=== PATIENT | female | born 1935 | race Caucasian/White ===

== ENCOUNTER → 2017-01-31 | Outpatient (CLI) | payer MEDICARE, OTHER ==
--- NOTE | 2017-02-03 06:52 | CT ---
EXAMINATION TYPE: CT ChestAbdPelvis wo con DATE OF EXAM: 01/31/2017 COMPARISON: CTA chest August 25, 2015. CT abdomen and pelvis December 26, 2014. HISTORY: weight loss and generalized abdominal pain. History of uterine cancer. CT DLP: 814 mGycm. Automated Exposure Control for Dose Reduction was Utilized. TECHNIQUE: CT scan of the thorax, abdomen and pelvis is performed with oral but without IV contrast. FINDINGS: LUNGS: There is mild underlying emphysematous change. There is patchy bibasilar linear scarring and/o r atelectasis in the lung bases near diaphragm. There is additional linear scarring or atelectasis in the lingula near fissure. No suspicious parenchymal nodule or mass is present bilaterally. No pleura l effusion or pneumothorax is seen bilaterally. Tracheobronchial tree is patent. MEDIASTINUM: Evaluation for adenopathy is suboptimal due to lack of IV contrast. There is no definiti ve greater than 1 cm thoracic lymph nodes seen. No cardiomegaly is identified. There is tiny peric ardial effusion diminished in size from prior. There is coronary artery calcification which is noted marker for coronary artery disease. There is fairly moderate calcified plaque in descending aorta. OTHER: No additional significant abnormality is seen. LIVER/GB: Tiny dependent gallstone is redemonstrated. PANCREAS: No significant abnormality is seen. SPLEEN: No significant abnormality is seen. ADRENALS: There is stable fullness to left adrenal gland consistent with benign breast hyperplasia. KIDNEYS: No significant abnormality is seen. BOWEL: Oral contrast reaches level of terminal ileum. Contrast filled small bowel loops are slightly more prominent in the lower abdomen and pelvis. There is no suspicious small or large bowel dilatatio n. GENITAL ORGANS: Uterus is surgically absent or markedly atrophic in appearance. Scattered pelvic phle boliths are present. LYMPH NODES: No greater than 1cm abdominal or pelvic lymph nodes are appreciated. OSSEOUS STRUCTURES: Spine is straightened on sagittal images. There is scoliotic curvature in the lum bar spine on coronal images. Osseous structures are demineralized. Persistent mild height loss L2 lev el is noted. OTHER: Moderate to severe calcified plaque of the abdominal aorta is redemonstrated. IMPRESSION: No suspicious new mass or adenopathy is seen. No significant new or acute finding is seen to account for symptoms of pain.
== END | disposition home or self-care (01) ==
LOC: RADCTMAIN 16:04
PROVIDERS: ATTEND Internal Medicine Hematology & Oncology
DX: R07.9 Chest pain, unspecified (principal); R10.84 Generalized abdominal pain; R63.4 Abnormal weight loss; C54.9 Malignant neoplasm of corpus uteri, unspecified
CPT/HCPCS: 71250; 74176

== ENCOUNTER 2017-03-12 07:50 | Day surgery (SDC) | payer MEDICARE, OTHER ==
[2017-03-06 15:00] VITALS: BMI 17.3
[~2017-03-12 07:50] MED LIST: LACTATED RINGERS 1,000 ML IV SCH; LIDOCAINE 1% 20 ML VIAL (10MG/ML) FOR IV START INTRADERMA PRN
[2017-03-12] MEDS ORDERED: LACTATED RINGERS 1,000 ML IV ONE (08:07)
[2017-03-12 08:37] LABS: Glucose,Whole Blood 75 mg/dL (75-99)
[2017-03-12 08:43] VITALS: TEMP 97
[2017-03-12] MEDS ORDERED: PROPOFOL 10 MG/ML 20 ML VIAL IV ONE (08:45)
--- NOTE | 2017-03-12 08:55 | P.PCN ---
Date of Procedure: 03/12/17 Procedure(s) Performed: BRIEF HISTORY: Patient is a 81-year-old, pleasant, white female, scheduled for an upper endoscopy as part of evaluation of dyspeptic symptoms with intermittent dysphagia chronic passive regurgitation for the last several years duration.. PROCEDURE PERFORMED: Esophagogastroduodenoscopy with biopsy. PREOPERATIVE DIAGNOSIS: Chronic dyspepsia. IV sedation per anesthesia. PROCEDURE: After informed consent was obtained, the patient was brought into the endoscopy unit. IV sedation was administered by Anesthesia under continuous monitoring. Initially the Olympus GIF-140 video endoscope was inserted into the mouth. Esophagus intubated without any difficulty. It was gradually advanced into the stomach and duodenum and carefully examined. The bulb and the second part of the duodenum appeared normal. The scope at this time was withdrawn to the stomach, adequately insufflated with air, and upon careful examination, mucosa of the antrum, had mild antral gastritis and biopsies were done from this area. The body, cardia and the fundus appeared normal. The scope was then withdrawn into the esophagus. Small sliding Hiatal hernia noted. The GE junction was located at 39 cm from the incisors. The esophagus appeared normal. There were no erosions or ulcerations seen and the patient tolerated the procedure well. IMPRESSION: 1. Antral gastritis. 2. Small hiatal hernia but no evidence of esophagitis or esophageal stricture. RECOMMENDATIONS: The findings of this examination were discussed with the patient as well as a family. She was advised to follow with the biopsy results. She was given a prescription for Zantac 150 milligrams twice a day for symptoms and was briefly educated about antireflux measures.
[2017-03-12 09:06] VITALS: RESP 16
[2017-03-12 09:19] VITALS: BP 116/55; PULSE 91
== END 2017-03-12 09:55 | disposition home or self-care (01) ==
LOC: ORWHC2ENDO 07:50
PROVIDERS: ATTEND Internal Medicine Gastroenterology
DX: K29.50 Unspecified chronic gastritis without bleeding (principal); K20.9 Esophagitis, unspecified; K44.9 Diaphragmatic hernia without obstruction or gangrene; K21.9 Gastro-esophageal reflux disease without esophagitis; I10 Essential (primary) hypertension; E78.5 Hyperlipidemia, unspecified; J44.9 Chronic obstructive pulmonary disease, unspecified; E11.9 Type 2 diabetes mellitus without complications; Z88.5 Allergy status to narcotic agent; Z91.041 Radiographic dye allergy status; Z88.8 Allergy status to other drugs, medicaments and biological substances; Z79.82 Long term (current) use of aspirin; Z79.84 Long term (current) use of oral hypoglycemic drugs; Z79.899 Other long term (current) drug therapy; Z86.73 Personal history of transient ischemic attack (TIA), and cerebral infarction without residual deficits
CPT/HCPCS: 43239; J2704; 88305; 88342

== ENCOUNTER 2020-02-11 20:00 | Emergency (ER) | payer MEDICARE, OTHER ==
[2020-02-11] MEDS ORDERED: HYDROcodone/APAP 5-325MG 1 EACH TAB PO STA (20:54)
--- NOTE | 2020-02-11 21:50 | CT ---
EXAMINATION TYPE: CT chest wo con DATE OF EXAM: 02/11/2020 COMPARISON: 01/31/2017 HISTORY: Right shoulder/rib pain post fall injury CT DLP: 223.5 mGycm Automated exposure control for dose reduction was used. Images obtained from the thoracic inlet to the diaphragm with no contrast. There is some mild linear density at the lung bases consistent with subsegmental atelectasis. Thoraci c aorta is atheromatous. There is coronary artery calcification. There is no pericardial effusion. Th ere is no mediastinal adenopathy. The lungs are clear of consolidation. There is no evidence of a pul monary mass. There is 50% wedging of T7 vertebra. The sternum is intact. The ribs appear intact. The shoulder joints appear intact. Upper abdominal soft tissues are intact. IMPRESSION: There is T7 compression fracture of uncertain age. The fracture appears new compared to old CT scan. No rib fracture seen.
--- NOTE | 2020-02-11 21:51 | XR ---
EXAMINATION TYPE: XR knee complete RT DATE OF EXAM: 02/11/2020 COMPARISON: NONE HISTORY: Knee pain TECHNIQUE: 3 views FINDINGS: There is calcification of the menisci. There is spurring on the patella. There is spurring at the tibial tubercle. I see no fracture nor dislocation. IMPRESSION: Chondrocalcinosis. No fracture seen.
--- NOTE | 2020-02-11 21:56 | XR ---
EXAMINATION TYPE: XR shoulder complete RT DATE OF EXAM: 02/11/2020 COMPARISON: NONE HISTORY: Pain TECHNIQUE: 3 views FINDINGS: I see no fracture nor dislocation. There is spurring at the AC joint. There is mild narrowi ng of the subacromial joint space. IMPRESSION: No acute abnormality of the right shoulder.
--- NOTE | 2020-02-11 21:58 | XR ---
EXAMINATION TYPE: XR elbow complete RT DATE OF EXAM: 02/11/2020 COMPARISON: NONE HISTORY: Elbow pain TECHNIQUE: 3 views FINDINGS: I see no fracture nor dislocation. Joint spaces appear normal. There is no sign of elbow maida int effusion. IMPRESSION: Negative right elbow exam.
[2020-02-11 22:33] VITALS: RESP 18
--- NOTE | 2020-02-11 22:46 | ED ---
Fall HPI - General Chief Complaint: Fall Stated Complaint: Fall Time Seen by Provider: 02/11/20 20:10 Source: patient, family Mode of arrival: wheelchair - History of Present Illness Initial Comments: Patient is an 84 she'll female who presents emergency Department after she sustained a fall. Patient reports that she was going up one step when she lost her balance and fell onto her right side. Denies loss of consciousness. No head trauma. Patient does not take any blood thinners. Incident happened around 4:30 PM. She fell onto her right shoulder, right knee and has right- sided rib pain. She called to her daughter who is able to help get her up. States she's has been able to ambulate on the right lower trauma however feels as if it wants to give out on her. Denies any foot or ankle pain. No, numbness or tingling distal to the areas of injury. Been unable to raise her right arm above 90. Also sustained a skin tear to the right elbow. Patient denies any shortness of breath. No abdominal pain. Does admit to reproducible right-sided chest wall pain. She took Tylenol for pain control. No nausea or vomiting. There are no other alleviating, precipitating or modifying factors - Related Data Home Medications Medication Instructions Recorded Confirmed Albuterol Sulfate [Proair Hfa] 2 puff INHALATION RT-Q4H PRN 12/26/14 02/11/20 Atorvastatin [Lipitor] 10 mg PO HS 12/26/14 02/11/20 Ipratropium Nebulized [Atrovent 0.5 mg INHALATION RT-TID 12/26/14 02/11/20 Nebulized 0.2 MG/ML] Repaglinide [Prandin] 0.5 mg PO AC-BID PRN 12/26/14 02/11/20 amLODIPine [Norvasc] 5 mg PO DAILY 12/26/14 02/11/20 Aspirin EC [Ecotrin Low Dose] 81 mg PO DAILY 02/13/15 02/11/20 Levalbuterol HCl [Xopenex 1.25 mg INHALATION RT-TID 02/13/15 02/11/20 Nebulized] Montelukast [Singulair] 10 mg PO HS 02/13/15 02/11/20 Magnesium Oxide [Mag-Ox] 400 mg PO DAILY 08/25/15 02/11/20 Eszopiclone 1 mg PO HS 03/06/17 02/11/20 Budesonide/Formoterol Fumarate 1 puff INHALATION RT-BID 02/11/20 02/11/20 [Symbicort 160-4.5 Mcg Inhaler] Pregabalin [Lyrica] 50 mg PO DAILY 02/11/20 02/11/20 Pregabalin [Lyrica] 75 mg PO HS 02/11/20 02/11/20 Akc-Kvxj-Jnrkd Acid 1 cap PO DAILY 02/11/20 02/11/20 [-U Capsule (formulary)] Previous Rx's Medication Instructions Recorded Hydrocodone/Acetaminophen [[employer] 1 tab PO Q6HR PRN #12 tab 02/11/20 5-325] Allergies Allergy/AdvReac Type Severity Reaction Status Date / Time codeine Allergy Dyspnea/hiv Verified 02/11/20 23:00 es fentanyl Allergy Anaphylaxis Verified 02/11/20 23:00 Iodinated Contrast Media Allergy Anaphylaxis Verified 02/11/20 23:00 [Iodinated Contrast Media - IV Dye] meperidine HCl [From Demerol] Allergy Anaphylaxis Verified 02/11/20 23:00 omeprazole Allergy Swelling/Ra Verified 02/11/20 23:00 sh adhesive tape AdvReac THIN AND Verified 02/11/20 23:00 SENSITIVE SKIN/RASH Review of Systems ROS Statement: Those systems with pertinent positive or pertinent negative responses have been documented in the HPI. ROS Other: All systems not noted in ROS Statement are negative. Past Medical History Past Medical History: Asthma, Cancer, Chest Pain / Angina, COPD, CVA/TIA, Diabetes Mellitus, GERD/Reflux, Hyperlipidemia, Hypertension, Osteoarthritis (OA), Pneumonia, Seizure Disorder Additional Past Medical History / Comment(s): TREMORS, HX OF PNEUMONIA SEVERAL TIMES, HX OF UTERINE AND SKIN CANCER, ANEMIA, "NON-FUNCTIONING GALL BLADDER", HX OF KIDNEY STONES,. occ loss of CONTROL OF HER BOWELS., "TEMPORAL ARTERITIS" excema, INSOMNIA,HIATAL HERNIA, last seizure about 10 yrs ago, told TIA 10-12 yrs ago, diff swallowing and wt loss of about 2 lbs a week, diverticulitis, hx prednisone induced diabetes, cervical dystonia History of Any Multi-Drug Resistant Organisms: None Reported Past Surgical History: Heart Catheterization, Hysterectomy Additional Past Surgical History / Comment(s): VARICOSE VEINS REMOVED, HEART CATH X2. CATARACTS, SKIN CA REMOVED, pain clinic procedure Past Anesthesia/Blood Transfusion Reactions: Previous Problems w/ Anesthesia, Motion Sickness Additional Past Anesthesia/Blood Transfusion Reaction / Comment(s): SEVERE REACTION TO FENTANYL AND DEMEROL. Past Psychological History: No Psychological Hx Reported Smoking Status: Never smoker Past Alcohol Use History: None Reported Past Drug Use History: None Reported - Past Family History Father Additional Family Medical History / Comment(s): AT AGE 29-NOT SURE OF CAUSE Mother Family Medical History: Cancer Additional Family Medical History / Comment(s): . Brother(s) Family Medical History: Cancer Additional Family Medical History / Comment(s): . Daughter(s) Family Medical History: Cancer Additional Family Medical History / Comment(s): COLON CANCER General Exam Limitations: no limitations General appearance: alert, in no apparent distress Head exam: Present: atraumatic, normocephalic, normal inspection Eye exam: Present: normal appearance, PERRL, EOMI. Absent: scleral icterus, conjunctival injection, periorbital swelling ENT exam: Present: normal exam, mucous membranes moist Neck exam: Present: normal inspection. Absent: tenderness, meningismus, lymphadenopathy Respiratory exam: Present: normal lung sounds bilaterally, chest wall tenderness (right lateral chest wall). Absent: respiratory distress, wheezes, rales, rhonchi, stridor Cardiovascular Exam: Present: regular rate, normal rhythm, normal heart sounds. Absent: systolic murmur, diastolic murmur, rubs, gallop, clicks GI/Abdominal exam: Present: soft, normal bowel sounds. Absent: distended, tenderness, guarding, rebound, rigid Extremities exam: Present: tenderness (right shoulder, right knee. No effusion. Limited ROM of the right shoulder. Patient refuses to lift >90 degrees. 2+ radial and ulnar pusles bilaterally. 2+ DP and PT pulses bilaterally. Distal sensation and reflexes intact), normal capillary refill. Absent: pedal edema, joint swelling, calf tenderness Back exam: Present: normal inspection Neurological exam: Present: alert, oriented X3, CN II-XII intact Psychiatric exam: Present: normal affect, normal mood Skin exam: Present: warm, dry, intact, normal color. Absent: rash Course Vital Signs 10/16/20 10/16/20 10/16/20 20:09 21:10 22:00 Temperature 99.9 F H Pulse Rate 98 90 84 Respiratory 16 17 18 Rate Blood Pressure 132/52 124/52 118/50 O2 Sat by Pulse 99 98 97 Oximetry 02/11/20 23:07 Temperature 98.1 F Pulse Rate 85 Respiratory 18 Rate Blood Pressure 134/59 O2 Sat by Pulse 97 Oximetry Medical Decision Making - Medical Decision Making Upon arrival the patient is placed into room 7. A thorough history and physical exam is performed. She is offered something for pain control and is given a [employer]. Patient is sent over for a chest CT. X-rays the patient's right knee, right shoulder and right elbow were performed. Imaging is reviewed by myself and is read as negative by the radiologist. Results were discussed the patient. This time she will be placed in a sling to her right upper extremity and any immobilizer to her right lower trauma. She does have a walker at home for which she is supposed to ambulate with. She is instructed to minimally weight-bear to the right lower extremity. Wear the sling as directed for comfort. I will give her a small prescription for [employer]. Fall precautions are discussed. The p atient will be discharged home at this time he needs to follow-up with orthopedics in regards to her pain. She may need further imaging to include additional x-rays and even an MRI. The patient understood this and agreed. Return to the emergency room for any new or worsening symptoms per patient was discharged home in stable condition Disposition Clinical Impression: Fall, Right shoulder pain, Right knee pain, Abrasion of right elbow, Right- sided chest wall pain Disposition: HOME SELF-CARE Condition: Stable Instructions (If sedation given, give patient instructions): Fall Prevention for Older Adults (ED), Knee Pain (ED), Shoulder Pain (ED) Additional Instructions: Rest, ice and elevate your right knee. Wear the sling to the right shoulder. Take the pain medications as directed. Do not take any extra Tylenol. Follow up with orthopedic doctors within 7-10 days for repeat imaging. Return to the emergency room for any new or worsening symptoms Prescriptions: Hydrocodone/Acetaminophen [[employer] 5-325] 1 tab PO Q6HR PRN #12 tab PRN Reason: Pain Is patient prescribed a controlled substance at d/c from ED?: Yes When asked, does pt state using other controlled substances?: No If prescribed controlled substance>3 days was MAPS reviewed?: Prescribed <3 Days If opioid is for acute pain is fill amount 7 days or less?: Yes If Rx opioid, was Start Talking consent form obtained?: Yes Referrals: Perry Knapp MD [Primary Care Provider] - 1-2 days Lev Nguyen DO [Doctor of Osteopathic Medicine] - 1-2 days Time of Disposition: 22:45
[2020-02-11 23:09] VITALS: BP 134/59; PULSE 85; TEMP 98.1
== END 2020-02-11 23:07 | disposition home or self-care (01) ==
LOC: EC 20:00
DX: S51.011A Laceration without foreign body of right elbow, initial encounter (principal); R07.89 Other chest pain; M25.561 Pain in right knee; M25.511 Pain in right shoulder; J44.9 Chronic obstructive pulmonary disease, unspecified; I25.2 Old myocardial infarction; E11.9 Type 2 diabetes mellitus without complications; K21.9 Gastro-esophageal reflux disease without esophagitis; E78.5 Hyperlipidemia, unspecified; I10 Essential (primary) hypertension; M19.90 Unspecified osteoarthritis, unspecified site; G40.909 Epilepsy, unspecified, not intractable, without status epilepticus; D64.9 Anemia, unspecified; I25.10 Atherosclerotic heart disease of native coronary artery without angina pectoris; Z79.51 Long term (current) use of inhaled steroids; Z79.82 Long term (current) use of aspirin; Z79.899 Other long term (current) drug therapy; Z88.5 Allergy status to narcotic agent; Z91.041 Radiographic dye allergy status; Z88.8 Allergy status to other drugs, medicaments and biological substances; Z91.048 Other nonmedicinal substance allergy status; Z86.73 Personal history of transient ischemic attack (TIA), and cerebral infarction without residual deficits; Z87.442 Personal history of urinary calculi; Z85.828 Personal history of other malignant neoplasm of skin; Z95.5 Presence of coronary angioplasty implant and graft; W10.9XXA Fall (on) (from) unspecified stairs and steps, initial encounter; Y93.89 Activity, other specified; Y92.009 Unspecified place in unspecified non-institutional (private) residence as the place of occurrence of the external cause
CPT/HCPCS: 71250; 99284

== ENCOUNTER 2020-03-01 17:57 | Emergency (ER) | payer MEDICARE, OTHER ==
[2020-03-01 18:16] VITALS: TEMP 98.1
--- NOTE | 2020-03-01 19:10 | ED ---
General Adult HPI - General Chief complaint: Extremity Injury, Lower Stated complaint: Poss DVT Time Seen by Provider: 03/01/20 18:45 Source: patient, family, RN notes reviewed Mode of arrival: wheelchair Limitations: no limitations - History of Present Illness Initial comments: Patient is a pleasant 84-year-old female presenting to the emergency Department with complaints of right calf pain. Patient did have a fall a few weeks ago. Patient has had some continued to you discomfort of her lower leg however symptoms have worsened over the past 2 days. There has been some swelling and some warmth and redness. Discomfort has increased. Discomfort increases with movement and touching. No fever. No chest pain or dyspnea. - Related Data Home Medications Medication Instructions Recorded Confirmed Albuterol Sulfate [Proair Hfa] 2 puff INHALATION RT-Q4H PRN 12/26/14 02/11/20 Atorvastatin [Lipitor] 10 mg PO HS 12/26/14 02/11/20 Ipratropium Nebulized [Atrovent 0.5 mg INHALATION RT-TID 12/26/14 02/11/20 Nebulized 0.2 MG/ML] Repaglinide [Prandin] 0.5 mg PO AC-BID PRN 12/26/14 02/11/20 amLODIPine [Norvasc] 5 mg PO DAILY 12/26/14 02/11/20 Aspirin EC [Ecotrin Low Dose] 81 mg PO DAILY 02/13/15 02/11/20 Levalbuterol HCl [Xopenex 1.25 mg INHALATION RT-TID 02/13/15 02/11/20 Nebulized] Montelukast [Singulair] 10 mg PO HS 02/13/15 02/11/20 Magnesium Oxide [Mag-Ox] 400 mg PO DAILY 08/25/15 02/11/20 Eszopiclone 1 mg PO HS 03/06/17 02/11/20 Budesonide/Formoterol Fumarate 1 puff INHALATION RT-BID 02/11/20 02/11/20 [Symbicort 160-4.5 Mcg Inhaler] Pregabalin [Lyrica] 50 mg PO DAILY 02/11/20 02/11/20 Pregabalin [Lyrica] 75 mg PO HS 02/11/20 02/11/20 Ndr-Marp-Kxpzw Acid 1 cap PO DAILY 02/11/20 02/11/20 [-U Capsule (formulary)] Previous Rx's Medication Instructions Recorded Hydrocodone/Acetaminophen [[employer] 1 tab PO Q6HR PRN #12 tab 02/11/20 5-325] Cephalexin [Keflex] 500 mg PO QID #40 cap 03/01/20 Allergies Allergy/AdvReac Type Severity Reaction Status Date / Time codeine Allergy Dyspnea/hiv Verified 03/01/20 20:51 es fentanyl Allergy Anaphylaxis Verified 03/01/20 20:51 Iodinated Contrast Media Allergy Anaphylaxis Verified 03/01/20 20:51 [Iodinated Contrast Media - IV Dye] meperidine HCl [From Demerol] Allergy Anaphylaxis Verified 03/01/20 20:51 omeprazole Allergy Swelling/Ra Verified 03/01/20 20:51 sh adhesive tape AdvReac THIN AND Verified 03/01/20 20:51 SENSITIVE SKIN/RASH Review of Systems ROS Statement: Those systems with pertinent positive or pertinent negative responses have been documented in the HPI. ROS Other: All systems not noted in ROS Statement are negative. Constitutional: Denies: fever Eyes: Denies: eye pain ENT: Denies: ear pain Respiratory: Denies: cough, dyspnea Cardiovascular: Denies: chest pain Endocrine: Denies: fatigue Gastrointestinal: Denies: abdominal pain Genitourinary: Denies: dysuria Musculoskeletal: Reports: as per HPI Skin: Denies: lesions Neurological: Denies: headache Past Medical History Past Medical History: Asthma, Cancer, Chest Pain / Angina, COPD, CVA/TIA, Diabetes Mellitus, GERD/Reflux, Hyperlipidemia, Hypertension, Osteoarthritis (OA), Pneumonia, Seizure Disorder Additional Past Medical History / Comment(s): TREMORS, HX OF PNEUMONIA SEVERAL TIMES, HX OF UTERINE AND SKIN CANCER, ANEMIA, "NON-FUNCTIONING GALL BLADDER", HX OF KIDNEY STONES,. occ loss of CONTROL OF HER BOWELS., "TEMPORAL ARTERITIS" excema, INSOMNIA,HIATAL HERNIA, last seizure about 10 yrs ago, told TIA 10-12 yrs ago, diff swallowing and wt loss of about 2 lbs a week, diverticulitis, hx prednisone induced diabetes, cervical dystonia History of Any Multi-Drug Resistant Organisms: None Reported Past Surgical History: Heart Catheterization, Hysterectomy Additional Past Surgical History / Comment(s): VARICOSE VEINS REMOVED, HEART CATH X2. CATARACTS, SKIN CA REMOVED, pain clinic procedure Past Anesthesia/Blood Transfusion Reactions: Previous Problems w/ Anesthesia, Motion Sickness Additional Past Anesthesia/Blood Transfusion Reaction / Comment(s): SEVERE REACTION TO FENTANYL AND DEMEROL. Past Psychological History: No Psychological Hx Reported Smoking Status: Never smoker Past Alcohol Use History: None Reported Past Drug Use History: None Reported - Past Family History Father Additional Family Medical History / Comment(s): AT AGE 29-NOT SURE OF CAUSE Mother Family Medical History: Cancer Additional Family Medical History / Comment(s): . Brother(s) Family Medical History: Cancer Additional Family Medical History / Comment(s): . Daughter(s) Family Medical History: Cancer Additional Family Medical History / Comment(s): COLON CANCER General Exam Limitations: no limitations General appearance: alert, in no apparent distress Head exam: Present: normocephalic Eye exam: Present: normal appearance Respiratory exam: Present: normal lung sounds bilaterally Cardiovascular Exam: Present: regular rate, normal rhythm Expanded Peripheral pulses: 2+: Dorsalis Pedis (R) GI/Abdominal exam: Present: soft. Absent: tenderness Extremities exam: Present: calf tenderness, other (Patient does have mild swelling right lower leg with some erythema distally. There is tenderness to the calf.) Neurological exam: Present: alert Psychiatric exam: Present: normal affect, normal mood Skin exam: Present: erythema (Mild anterior right shepard region) Course Vital Signs 03/01/20 18:15 Temperature 98.1 F Pulse Rate 89 Respiratory 20 Rate Blood Pressure 155/65 O2 Sat by Pulse 97 Oximetry Medical Decision Making - Medical Decision Making Patient reevaluated. Patient and family updated. Patient will be prescribed antibiotics for cellulitis. Patient is advised to follow-up with primary care physician in the next day or 2 for close follow-up and consider repeat ultrasound. Continue aspirin. - Radiology Data Radiology results: report reviewed (Ultrasound negative for DVT) Disposition Clinical Impression: Cellulitis of right leg Disposition: HOME SELF-CARE Instructions (If sedation given, give patient instructions): Cellulitis (ED) Additional Instructions: Please follow-up with primary care physician in the next day or 2 for recheck. Consider repeat ultrasound at 48 hours if symptoms continue. Return for chest pain or difficulty in breathing, increased pain or swelling or redness, fever, worsening symptoms or other concerns. Continue aspirin daily. prescription sent to [facility] on 24 Prescriptions: Cephalexin [Keflex] 500 mg PO QID #40 cap Is patient prescribed a controlled substance at d/c from ED?: No Referrals: Perry Knapp MD [Primary Care Provider] - 1-2 days Time of Disposition: 20:52
--- NOTE | 2020-03-01 20:18 | US ---
EXAMINATION TYPE: US venous doppler duplex LE RT DATE OF EXAM: 03/01/2020 7:08 PM COMPARISON: NONE CLINICAL HISTORY: Pain and swelling. Pain and swelling x 1 day. No hx of DVT. Patient takes baby aspi rin. Patient had vein stripping right leg. SIDE PERFORMED: Right TECHNIQUE: The lower extremity deep venous system is examined utilizing real time linear array sonog thomas with graded compression, doppler sonography and color-flow sonography. VESSELS IMAGED: External Iliac Vein (EIV) Common Femoral Vein Deep Femoral Vein Femoral Vein Popliteal Vein Small Saphenous Vein * Proximal Calf Veins (* superficial vessels) GSV not seen, patient had vein stripping. Right Leg: No evidence of DVT in veins imaged at this time from prox calf veins to EIV. IMPRESSION: 1. No right lower extremity deep venous thrombosis
[2020-03-01] MEDS ORDERED: CEPHALEXIN 500 MG CAP PO STA (20:53)
[2020-03-01 21:17] VITALS: BP 152/79; PULSE 64; RESP 18
== END 2020-03-01 21:24 | disposition home or self-care (01) ==
LOC: EC 17:57
DX: L03.115 Cellulitis of right lower limb (principal); J44.9 Chronic obstructive pulmonary disease, unspecified; K21.9 Gastro-esophageal reflux disease without esophagitis; E11.9 Type 2 diabetes mellitus without complications; E78.5 Hyperlipidemia, unspecified; M19.90 Unspecified osteoarthritis, unspecified site; Z79.51 Long term (current) use of inhaled steroids; Z79.899 Other long term (current) drug therapy; Z79.82 Long term (current) use of aspirin; Z88.5 Allergy status to narcotic agent; Z88.8 Allergy status to other drugs, medicaments and biological substances; Z91.041 Radiographic dye allergy status; Z91.048 Other nonmedicinal substance allergy status; Z95.5 Presence of coronary angioplasty implant and graft; Z98.42 Cataract extraction status, left eye; Z98.41 Cataract extraction status, right eye; Z85.42 Personal history of malignant neoplasm of other parts of uterus; Z86.73 Personal history of transient ischemic attack (TIA), and cerebral infarction without residual deficits; Z85.828 Personal history of other malignant neoplasm of skin; Z80.0 Family history of malignant neoplasm of digestive organs
CPT/HCPCS: 99283

== ENCOUNTER 2020-08-05 12:55 | Observation (INO) | payer MEDICARE, OTHER ==
[2020-08-05] MEDS ORDERED: ACETAMINOPHEN TAB 325 MG TAB PO STA (14:17)
--- NOTE | 2020-08-05 14:20 | ED ---
Fall HPI - General Chief Complaint: Fall Stated Complaint: fall Source: patient, RN notes reviewed Mode of arrival: ambulatory - History of Present Illness Initial Comments: 85-year-old female that presents 1 day status post fall. She was try to help her daughter up off the floor when she fell hitting the left side of her head on the synagogue area. She denied losing consciousness. She denied taking any blood thinners besides baby aspirin. She is mainly complaining of bilateral neck tightness/stiffness and pain. She was in no apparent distress or pain while sitting in wheelchair during the exam interview. She is Saying that her neck was tight and she couldn't turn it due to stiffness and pain. She did state that she wanted some Tylenol or something for pain. She denied any chest pain shortness of breath headache nausea vomiting diarrhea constipation fever fatigue chills weakness numbness tingling. - Related Data Home Medications Medication Instructions Recorded Confirmed Albuterol Sulfate [Proair Hfa] 2 puff INHALATION RT-Q4H PRN 12/26/14 03/01/20 Atorvastatin [Lipitor] 10 mg PO HS 12/26/14 03/01/20 Ipratropium Nebulized [Atrovent 0.5 mg INHALATION RT-TID 12/26/14 03/01/20 Nebulized 0.2 MG/ML] Repaglinide [Prandin] 0.5 mg PO AC-BID PRN 12/26/14 03/01/20 amLODIPine [Norvasc] 5 mg PO DAILY 12/26/14 03/01/20 Aspirin EC [Ecotrin Low Dose] 81 mg PO DAILY 02/13/15 03/01/20 Levalbuterol HCl [Xopenex 1.25 mg INHALATION RT-TID 02/13/15 03/01/20 Nebulized] Montelukast [Singulair] 10 mg PO HS 02/13/15 03/01/20 Magnesium Oxide [Mag-Ox] 400 mg PO DAILY 08/25/15 03/01/20 Eszopiclone 1 mg PO HS 03/06/17 03/01/20 Budesonide/Formoterol Fumarate 1 puff INHALATION RT-BID 02/11/20 03/01/20 [Symbicort 160-4.5 Mcg Inhaler] Pregabalin [Lyrica] 50 mg PO DAILY 02/11/20 03/01/20 Pregabalin [Lyrica] 75 mg PO HS 02/11/20 03/01/20 Zii-Ofdv-Ywwvz Acid 1 cap PO DAILY 02/11/20 03/01/20 [-U Capsule (formulary)] Previous Rx's Medication Instructions Recorded Hydrocodone/Acetaminophen [[place] 1 tab PO Q6HR PRN #12 tab 02/11/20 5-325] Cephalexin [Keflex] 500 mg PO QID #40 cap 03/01/20 Allergies Allergy/AdvReac Type Severity Reaction Status Date / Time codeine Allergy Dyspnea/hiv Verified 08/05/20 13:26 es fentanyl Allergy Anaphylaxis Verified 08/05/20 13:26 Iodinated Contrast Media Allergy Anaphylaxis Verified 08/05/20 13:26 [Iodinated Contrast Media - IV Dye] meperidine HCl [From Demerol] Allergy Anaphylaxis Verified 08/05/20 13:26 omeprazole Allergy Swelling/Ra Verified 08/05/20 13:26 sh adhesive tape AdvReac THIN AND Verified 08/05/20 13:26 SENSITIVE SKIN/RASH Review of Systems ROS Statement: Those systems with pertinent positive or pertinent negative responses have been documented in the HPI. ROS Other: All systems not noted in ROS Statement are negative. Past Medical History Past Medical History: Asthma, Cancer, Chest Pain / Angina, COPD, CVA/TIA, Diabetes Mellitus, GERD/Reflux, Hyperlipidemia, Hypertension, Osteoarthritis (OA), Pneumonia, Seizure Disorder Additional Past Medical History / Comment(s): TREMORS, HX OF PNEUMONIA SEVERAL TIMES, HX OF UTERINE AND SKIN CANCER, ANEMIA, "NON-FUNCTIONING GALL BLADDER", HX OF KIDNEY STONES,. occ loss of CONTROL OF HER BOWELS., "TEMPORAL ARTERITIS" excema, INSOMNIA,HIATAL HERNIA, last seizure about 10 yrs ago, told TIA 10-12 yrs ago, diff swallowing and wt loss of about 2 lbs a week, diverticulitis, hx prednisone induced diabetes, cervical dystonia History of Any Multi-Drug Resistant Organisms: None Reported Past Surgical History: Heart Catheterization, Hysterectomy Additional Past Surgical History / Comment(s): VARICOSE VEINS REMOVED, HEART CATH X2. CATARACTS, SKIN CA REMOVED, pain clinic procedure Past Anesthesia/Blood Transfusion Reactions: Previous Problems w/ Anesthesia, Motion Sickness Additional Past Anesthesia/Blood Transfusion Reaction / Comment(s): SEVERE REACTION TO FENTANYL AND DEMEROL. Past Psychological History: No Psychological Hx Reported Smoking Status: Never smoker Past Alcohol Use History: None Reported Past Drug Use History: None Reported - Past Family History Father Additional Family Medical History / Comment(s): AT AGE 29-NOT SURE OF CAUSE Mother Family Medical History: Cancer Additional Family Medical History / Comment(s): . Brother(s) Family Medical History: Cancer Additional Family Medical History / Comment(s): . Daughter(s) Family Medical History: Cancer Additional Family Medical History / Comment(s): COLON CANCER General Exam Limitations: no limitations General appearance: alert, in no apparent distress Head exam: Present: atraumatic, normocephalic, normal inspection Eye exam: Present: normal appearance, PERRL, EOMI. Absent: scleral icterus, conjunctival injection, periorbital swelling Neck exam: Present: normal inspection. Absent: tenderness, meningismus, lymphadenopathy Respiratory exam: Present: normal lung sounds bilaterally. Absent: respiratory distress, wheezes, rales, rhonchi, stridor Cardiovascular Exam: Present: regular rate, normal rhythm, normal heart sounds. Absent: systolic murmur, diastolic murmur, rubs, gallop, clicks GI/Abdominal exam: Present: soft, normal bowel sounds. Absent: distended, tenderness, guarding, rebound, rigid Extremities exam: Present: full ROM, normal capillary refill. Absent: normal inspection (Patient has a large bruise over anterior side of right sheprad and a small skin tear with bruising over the left elbow.), tenderness, pedal edema, joint swelling, calf tenderness Back exam: Present: normal inspection Neurological exam: Present: alert, oriented X3, CN II-XII intact Expanded Patient oriented to: Present: person, place, time Speech: Present: fluid speech Cranial nerves: EOM's Intact: Normal, Facial Sensation: Normal Sensory exam: Upper Extremity Light Touch: Normal, Lower Extremity Light Touch: Normal Motor strength exam: RUE: 5, LUE: 5, RLE: 5, LLE: 5 Eye Response: (4) open spontaneously Motor Response: (6) obeys commands Verbal Response: (5) oriented Psychiatric exam: Present: normal affect, normal mood Skin exam: Present: warm, dry, intact, normal color. Absent: rash Course Vital Signs 04/02/1508/05/20 08/05/20 13:23 15:00 16:00 Temperature 98 F 97.6 F Pulse Rate 78 80 Respiratory 18 18 18 Rate Blood Pressure 154/64 179/62 O2 Sat by Pulse 96 99 Oximetry Medical Decision Making - Medical Decision Making 85-year-old female status post fall times one. CT of the brain and C-spine, basic labs and coagulation studies ordered. 650 mg of Tylenol ordered. C-collar ordered and put on. Daughter was informed of transfer she is on her way from [place] to [facility]. Case discussed with Dr. Hammond, will consult spine surgeon from [facility]. Dr. Schumacher from [facility] stated that patient did not need to be transferred and that a hard c-collar could be placed with follow-up in [address] Hammond concern for patient wanted a consult in-house orthopedics. Dr. Baltazar was consult good and stated that a hard c-collar could be placed patient could be discharged home with a follow-up on Friday outpatient. Upon further questioning patient does not have help at home to watch her, unsafe discharge Dr. Hammond and myself both agree the patient's to stay in hospital and get without consult. Patient and her guest both agree that staying in the hospital would be the best call for the patient at this time. Dr. Johnson was consult good and said that they will consult on the admit and to admit to Dr. Baltazar - Lab Data Result diagrams: 08/05/20 15:33 08/05/20 15:33 Lab Results 08/05/20 08/05/20 08/05/20 Range/Units 15:33 15:33 15:33 WBC 7.6 (3.8-10.6) k/uL RBC 4.49 (3.80-5.40) m/uL Hgb 13.3 (11.4-16.0) gm/dL Hct 41.6 (34.0-46.0) % MCV 92.5 (80.0-100.0) fL MCH 29.6 (25.0-35.0) pg MCHC 32.0 (31.0-37.0) g/dL RDW 15.2 (11.5-15.5) % Plt Count 203 (150-450) k/uL MPV 7.5 Neutrophils % 80 % Lymphocytes % 12 % Monocytes % 5 % Eosinophils % 1 % Basophils % 0 % Neutrophils # 6.1 (1.3-7.7) k/uL Lymphocytes # 0.9 L (1.0-4.8) k/uL Monocytes # 0.4 (0-1.0) k/uL Eosinophils # 0.1 (0-0.7) k/uL Basophils # 0.0 (0-0.2) k/uL PT 10.1 (9.0-12.0) sec INR 0.9 (<1.2) APTT 23.9 (22.0-30.0) sec Sodium 136 L (137-145) mmol/L Potassium 3.9 (3.5-5.1) mmol/L Chloride 98 (98-107) mmol/L Carbon Dioxide 29 (22-30) mmol/L Anion Gap 9 mmol/L BUN 18 H (7-17) mg/dL Creatinine 0.66 (0.52-1.04) mg/dL Est GFR (CKD-EPI)AfAm >90 (>60 ml/min/1.73 sqM) Est GFR (CKD-EPI)NonAf 80 (>60 ml/min/1.73 sqM) Glucose 115 H (74-99) mg/dL Calcium 9.7 (8.4-10.2) mg/dL - Radiology Data Radiology results: report reviewed, image reviewed CT of the brain and C-spine: Type II dens fracture with minimal anteriolisthesis at C3-C4. No acute intracranial abnormality. Disposition Clinical Impression: Type II dens fracture of second cervical vertebra Disposition: ADMITTED IP TO THIS HOSP Condition: Stable Referrals: Perry Knapp MD [Primary Care Provider] - 1-2 days Time of Disposition: 17:51
[2020-08-05 15:39] LABS: Basophils % (A) 0 %; Eosinophils # (A) 0.1 k/uL (0-0.7); Eosinophils % (A) 1 %; HCT 41.6 % (34.0-46.0); HGB 13.3 gm/dL (11.4-16.0); Lymphocytes # (A) 0.9 k/uL (1.0-4.8); Lymphocytes % (A) 12 %; MCH 29.6 pg (25.0-35.0); MCV 92.5 fL (80.0-100.0); Mean Platelet Volume 7.5; Monocytes # (A) 0.4 k/uL (0-1.0); Monocytes % (A) 5 %; Neutrophils # (A) 6.1 k/uL (1.3-7.7); Neutrophils % (A) 80 %; Platelet Count 203 k/uL (150-450); RBC 4.49 m/uL (3.80-5.40); RDW 15.2 % (11.5-15.5); WBC 7.6 k/uL (3.8-10.6)
[2020-08-05 15:48] LABS: INR 0.9 (<1.2); Partial Thromboplastin Time 23.9 sec (22.0-30.0); Prothrombin Time 10.1 sec (9.0-12.0)
[2020-08-05 16:04] LABS: African American GFR (CKD) >90 (>60 ml/min/1.73 sqM); Anion Gap 9 mmol/L; Blood Urea Nitrogen 18 mg/dL (7-17); Calcium 9.7 mg/dL (8.4-10.2); Carbon Dioxide 29 mmol/L (22-30); Chloride 98 mmol/L (98-107); Glucose 115 mg/dL (74-99); Non-African American GFR(CKD) 80 (>60 ml/min/1.73 sqM); Potassium 3.9 mmol/L (3.5-5.1); Sodium 136 mmol/L (137-145)
--- NOTE | 2020-08-05 16:37 | CT ---
EXAMINATION TYPE: CT brain [place] con DATE OF EXAM: 08/05/2020 COMPARISON: None available. HISTORY: Fall, right posterior head injury. CT DLP: 1199.6 mGycm Automated exposure control for dose reduction was used. TECHNIQUE: CT scan of the head and cervical spine are performed without contrast. FINDINGS: There is no acute intracranial hemorrhage, mass effect, or midline shift identified. The ventricles and sulci are within normal limits in size. There is mild parenchymal atrophy and white m atter disease. The globes are intact and the visualized sinuses are clear. Cervical spine is visualized in its entirety from C1 through upper thoracic levels. There is a minima lly displaced type II dens fracture. There is minimal 2 mm anterolisthesis of C3 on C4. Otherwise the vertebral body heights are maintained. There is multilevel mild to moderate disc and uncovertebral d egenerative changes. There is age indeterminate mild T1 compression deformity. IMPRESSION: Type II dens fracture with minimal anterolisthesis at C3-C4. No acute intracranial abnormality. Findings were reported to caring physician by me at the time of dictation. There is age indeterminate mild T1 compression deformity, appears chronic.
[2020-08-05] MEDS ORDERED: NALOXONE 0.4 MG/ML 1 ML VIAL IV PRN (17:17)
--- NOTE | 2020-08-05 17:42 | XR ---
RESULT: HISTORY: Injury TECHNIQUE: 2 views of the right tibia-fibula were obtained. COMPARISON: None. FINDINGS: There is no acute fracture or dislocation. Calcaneal enthesopathy seen. IMPRESSION: No acute osseous abnormality.
[2020-08-05] MEDS ORDERED: IPRATROPIUM-ALBUTEROL 3 ML NEB INHALATION STA (17:45)
--- NOTE | 2020-08-05 17:46 | XR ---
Result: History: Pain status post fall. Comparison: None available. Technique: Frontal, lateral and oblique views of the left elbow. Findings: Bone mineralization is appropriate for age. No acute fracture or dislocation is seen. The visualized osseous structures are in anatomic alignmen t. The joint spaces are preserved. There is no significant elbow joint effusion. Overlying periphe ral catheter seen. Impression: No acute fracture or dislocation.
[2020-08-05] MEDS: ACETAMINOPHEN TAB 325 MG TAB PO PRN (22:24)
[2020-08-06] MEDS: ACETAMINOPHEN TAB 325 MG TAB PO PRN ×2 (03:02→14:39)
[2020-08-06 08:47] LABS: Glucose,Whole Blood 90 mg/dL (75-99)
[2020-08-06] MEDS ORDERED: ALBUTEROL NEBULIZED 2.5 MG/3 ML INHALATION PRN (08:47)
[2020-08-06] MEDS ORDERED: REPAGLINIDE 1 MG TAB PO PRN (08:47)
[2020-08-06] MEDS: amLODIPine 5 MG TAB PO SCH (09:49)
[2020-08-06] MEDS: ASPIRIN 81 MG PO SCH (09:49)
[2020-08-06] MEDS: MAGNESIUM OXIDE 400 MG TAB PO SCH (09:49)
[2020-08-06] MEDS: PREGABALIN 50 MG CAP PO SCH (09:49)
[2020-08-06] MEDS: PRENATAL VIT-IRON-FOLIC ACID 1 EACH CAP PO SCH (09:50)
--- NOTE | 2020-08-06 11:23 | P.HPOR ---
History of Present Illness H&P Date: 08/06/20 Chief Complaint: Cervical pain status post fall She is a very pleasant 85-year-old female who is seen and examined at bedside for further evaluation of her cervical spine. She states her daughter lives with her tear and she was in her bedroom yesterday when she hurt her daughter fall in the kitchen. She tried to help her daughter also floor and she fell hitting her head on the side of the cabinet. She is experiencing cervical pain at that time. She is brought to [facility] for further evaluation. CT imaging did show evidence of a C2 nondisplaced dens fracture. She also has degenerative changes at her cervical spine. Patient states she is known have chronic pain in his cervical spine. 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 Her head is chronically side bend to the right. After diagnosing her C2 fracture, she was placed in a hard cervical collar in the emergency department. She's had significant difficulty with this brace. This brace does not fit well. It applies pressure onto her chest. The brace is thin without much padding. She denies any upper extremity weakness and radiculopathy bilaterally. She has good range of motion of her upper extremities. She states the time of discharge she would like to be discharged home to be with her daughter. She does admit to COPD. She is expecting a breathing treatment this morning. Consultation has been placed with Dr. Johnson in medicine. She denies any other injuries. Her other medical diagnoses include history of CVA/TIA, diabetes mellitus, hyperlipidemia, hypertension, COPD, and history of seizure disorder. 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 Past Medical History Past Medical History: Asthma, Cancer, Chest Pain / Angina, COPD, CVA/TIA, Diabetes Mellitus, GERD/Reflux, Hyperlipidemia, Hypertension, Osteoarthritis (OA), Pneumonia, Seizure Disorder Additional Past Medical History / Comment(s): TREMORS, HX OF PNEUMONIA SEVERAL TIMES, HX OF UTERINE AND SKIN CANCER, ANEMIA, "NON-FUNCTIONING GALL BLADDER", HX OF KIDNEY STONES,. occ loss of CONTROL OF HER BOWELS., "TEMPORAL ARTERITIS" excema, INSOMNIA,HIATAL HERNIA, last seizure about 10 yrs ago, told TIA 10-12 yrs ago, diff swallowing and wt loss of about 2 lbs a week, diverticulitis, hx prednisone induced diabetes, cervical dystonia History of Any Multi-Drug Resistant Organisms: None Reported Past Surgical History: Heart Catheterization, Hysterectomy Additional Past Surgical History / Comment(s): VARICOSE VEINS REMOVED, HEART CATH X2. CATARACTS, SKIN CA REMOVED, pain clinic procedure Past Anesthesia/Blood Transfusion Reactions: Previous Problems w/ Anesthesia, Motion Sickness Additional Past Anesthesia/Blood Transfusion Reaction / Comment(s): SEVERE REACTION TO FENTANYL AND DEMEROL. Past Psychological History: No Psychological Hx Reported Smoking Status: Never smoker Past Alcohol Use History: None Reported Additional Past Alcohol Use History / Comment(s): STARTED SMOKING AT AGE 10 - QUIT AT AGE 56, SMOKED 1 PPD Past Drug Use History: None Reported - Past Family History Father Additional Family Medical History / Comment(s): AT AGE 29-NOT SURE OF CAUSE Mother Family Medical History: Cancer Additional Family Medical History / Comment(s): . Brother(s) Family Medical History: Cancer Additional Family Medical History / Comment(s): . Daughter(s) Family Medical History: Cancer Additional Family Medical History / Comment(s): COLON CANCER Medications and Allergies Home Medications Medication Instructions Recorded Confirmed Type Albuterol Sulfate [Proair Hfa] 2 puff INHALATION RT-Q4H PRN 12/26/14 08/05/20 History Atorvastatin [Lipitor] 10 mg PO HS 12/26/14 08/05/20 History Ipratropium Nebulized [Atrovent 0.5 mg INHALATION RT-TID 12/26/14 08/05/20 History Nebulized 0.2 MG/ML] Repaglinide [Prandin] 0.5 mg PO AC-BID PRN 12/26/14 08/05/20 History amLODIPine [Norvasc] 5 mg PO DAILY 12/26/14 08/05/20 History Aspirin EC [Ecotrin Low Dose] 81 mg PO DAILY 02/13/15 08/05/20 History Levalbuterol HCl [Xopenex 1.25 mg INHALATION RT-TID 02/13/15 08/05/20 History Nebulized] Montelukast [Singulair] 10 mg PO HS 02/13/15 08/05/20 History Magnesium Oxide [Mag-Ox] 400 mg PO DAILY 08/25/15 08/05/20 History Eszopiclone 1 mg PO HS 03/06/17 08/05/20 History Budesonide/Formoterol Fumarate 2 puff INHALATION RT-BID 02/11/20 08/05/20 History [Symbicort 160-4.5 Mcg Inhaler] Pregabalin [Lyrica] 50 mg PO DAILY 02/11/20 08/05/20 History Pregabalin [Lyrica] 75 mg PO HS 02/11/20 08/05/20 History Inl-Uwvb-Glkyh Acid 1 cap PO DAILY 02/11/20 08/05/20 History [-U Capsule (formulary)] Allergies Allergy/AdvReac Type Severity Reaction Status Date / Time codeine Allergy Dyspnea/hiv Verified 08/05/20 18:10 es fentanyl Allergy Anaphylaxis Verified 08/05/20 18:10 Iodinated Contrast Media Allergy Anaphylaxis Verified 08/05/20 18:10 [Iodinated Contrast Media - IV Dye] meperidine HCl [From Demerol] Allergy Anaphylaxis Verified 08/05/20 18:10 omeprazole Allergy Swelling/Ra Verified 08/05/20 18:10 sh adhesive tape AdvReac THIN AND Verified 08/05/20 18:10 SENSITIVE SKIN/RASH Physical Examination Physical exam: Patient is awake, alert, and oriented 3 Vital signs stable Good chest excursion with deep inspiration and expiration Examination of the cervical spine reveals skin is intact with no abrasions, lacerations, or bruises; no erythema, purulence or signs of infection Evidence of a small well-healed incision of the posterior cervical spine with a small soft tissue protrusion which the patient states is chronic for years Some pain on palpation over the trapezius bilaterally Reduced range of motion of the cervical spine with adequate flexion, extension, and bilateral rotation Patient's head is side bend to the right Hard cervical collar intact; hard collar is removed and reapplied to sit better during physical examination Milk Vendor strength, thumb strength, interosseous strength, biceps strength, triceps strength, and shoulder strength positive sustained bilaterally Upper extremity strength 5/5 bilaterally No upper extremity hyperreflexia bilaterally Hoffmans sign negative upper extremity bilaterally Results Pertinent studies: CT of the head and cervical spine taken on 08/05/2020: Acute intracranial abnormality; minimally displaced type II dens fracture; C3-4 spondylolisthesis; C3-7 degenerative disc disease with anterior osteophytic spurring; degenerative scoliosis; spondylosis throughout cervical spine X-rays of the tibia and fibula taken on 08/05/2020: No evidence of fracture dislocation at the right ankle or right knee; osteoarthritis right knee; no evidence of fibular or tibial fracture X-ray of the elbow taken on 08/05/2020: No evidence of fracture dislocation at the left elbow; evidence of IV placement - Labs Labs: Abnormal Lab Results - Last 24 Hours (Table) 08/05/20 08/05/20 Range/Units 15:33 15:33 Lymphocytes # 0.9 L (1.0-4.8) k/uL Sodium 136 L (137-145) mmol/L BUN 18 H (7-17) mg/dL Glucose 115 H (74-99) mg/dL H & H 08/05/20 Range/Units 15:33 Hgb 13.3 (11.4-16.0) gm/dL Hct 41.6 (34.0-46.0) % Coagulation 08/05/20 Range/Units 15:33 INR 0.9 (<1.2) Result Diagrams: 08/05/20 15:33 08/05/20 15:33 Assessment and Plan Assessment: Assessment: C2 minimally displaced type II dens fracture Acute on chronic cervical pain Status post fall Cervical degenerative scoliosis Cervical spondylosis C3-4 spondylolisthesis C3-7 degenerative disc disease with anterior osteophytic spurring COPD History of CVA/TIA Diabetes mellitus Hyperlipidemia Hypertension History of seizure disorder (1) Status post fall Current Visit: Yes Status: Acute Code(s): Z91.81 - HISTORY OF FALLING SNOMED Code(s): 483028818 (2) Cervical pain Current Visit: Yes Status: Acute Code(s): M54.2 - CERVICALGIA SNOMED Code(s): 39434076 (3) Spondylolisthesis, cervical region Current Visit: Yes Status: Acute Code(s): M43.12 - SPONDYLOLISTHESIS, CERVICAL REGION SNOMED Code(s): 642858233 (4) Degenerative cervical disc Current Visit: Yes Status: Acute Code(s): M50.30 - OTHER CERVICAL DISC DEGENERATION, UNSP CERVICAL REGION SNOMED Code(s): 52862864 (5) Scoliosis of cervical region due to degenerative disease of spine in adult Current Visit: Yes Status: Acute Code(s): M41.82 - OTHER FORMS OF SCOLIOSIS, CERVICAL REGION SNOMED Code(s): 872705759 (6) Cervical spondylosis Current Visit: Yes Status: Acute Code(s): M47.812 - SPONDYLOSIS W/O MYELOPATHY OR RADICULOPATHY, CERVICAL REGION SNOMED Code(s): 864104114 (7) Osteophyte Current Visit: Yes Status: Acute Code(s): M25.70 - OSTEOPHYTE, UNSPECIFIED JOINT SNOMED Code(s): 930752725334208 (8) COPD (chronic obstructive pulmonary disease) Current Visit: Yes Status: Acute Code(s): J44.9 - CHRONIC OBSTRUCTIVE PULMONARY DISEASE, UNSPECIFIED SNOMED Code(s): 50354149 (9) Diabetes mellitus Current Visit: Yes Status: Acute Code(s): E11.9 - TYPE 2 DIABETES MELLITUS WITHOUT COMPLICATIONS SNOMED Code(s): 17938643 (10) Hypertension Current Visit: Yes Status: Acute Code(s): I10 - ESSENTIAL (PRIMARY) HYPERTENSION SNOMED Code(s): 03437871 (11) Hyperlipidemia Current Visit: Yes Status: Acute Code(s): E78.5 - HYPERLIPIDEMIA, UNSPECIFIED SNOMED Code(s): 03645656 (12) History of seizure disorder Current Visit: Yes Status: Acute Code(s): Z86.69 - PERSONAL HISTORY OF DIS OF THE NERVOUS SYS AND SENSE ORGANS SNOMED Code(s): 337156907 (13) Knee osteoarthritis Current Visit: Yes Status: Acute Code(s): M17.10 - UNILATERAL PRIMARY OSTEOARTHRITIS, UNSPECIFIED KNEE SNOMED Code(s): 096841904 (14) Type II dens fracture of second cervical vertebra Current Visit: Yes Status: Acute Code(s): S12.110A - ANTERIOR DISPLACED TYPE II DENS FRACTURE, INIT FOR CLOS FX SNOMED Code(s): 766431325 Plan: Plan: 1. Patient has evidence of a C2 minimally displaced type II dens fracture due to trauma status post fall. She is having some cervical pain. She was fitted with a hard cervical collar in the emergency department. This brace is thin without good padding and does not fit well. It is applying pressure to the side of her chin. Patient also has difficulty with brace fitting due to her cervical scoliosis. At this time we'll plan to obtain a new better fitting and well- padded cervical hard collar. A prescription will be written and provided to case management for [place] hard cervical collar. Case management is not currently in the hospital today. We will plan to obtain this brace for the patient tomorrow. We discussed the current brace must be kept intact at all times. We will continue to follow the patient closely. If she is able to obtai n a new brace for her cervical spine tomorrow and her pain is better controlled we will plan for discharge home tomorrow. Following discharge, patient will follow up with Mitul Kovacs PA-C or Dr. Issac Baltazar at [facility] in 1 weeks following discharge. 2. Patient will be seen and examined by medicine for multiple other medical diagnoses Time with Patient: Greater than 30 (Including obtaining history, physical examination, reviewing of imaging, and dictation.)
[2020-08-06 11:31] LABS: Glucose,Whole Blood 92 mg/dL (75-99)
[2020-08-06] MEDS: IPRATROPIUM 0.5 MG/2.5 ML NEBU INHALATION SCH ×2 (13:41→19:50)
[2020-08-06 16:33] LABS: Glucose,Whole Blood 138 mg/dL (75-99)
--- NOTE | 2020-08-06 17:13 | P.CONS ---
History of Present Illness - Reason for Consult Consult date: 08/06/20 Medical management Requesting physician: Ana Lilia Baltazar - Chief Complaint Neck pain - History of Present Illness Consultation: This is a pleasant 85 patient of . Chronic stable medical conditions include COPD, diabetes, GERD, hyperlipidemia, hypertension, or stricture to his, seizure disorder, insomnia, hiatal hernia,. At baseline patient is slightly unsteady on her feet while walking but does not use any supportive cane or walker. Patient's daughter is visiting here from [place] at the bedside. Patient is other daughter who lives with her, diabetes, followed at home. Patient was found to help her get up to come fall herself. She had the floor with the left side of her confucianist area and contact the floor. She did not lose cautiousness. She presented with bilateral neck tightness stiffness and pain. No weakness of the arms or leg. Having trouble turning her neck. I type II dens fracture with minimal anterolisthesis of C3-C4 was discovered. She was given a neck collar. It was felt she was unstable to go home hence admitted for the same. Patient's current neck collar is too big for her and awaiting a new collar that'll be ordered tomorrow after the weekend Review of systems: GEN.: None EYES: None HEENT: Decreased hearing NECK: None RESPIRATORY: Baseline some shortness of breath CARDIOVASCULAR: None GASTROINTESTINAL: None GENITOURINARY: None MUSCULOSKELETAL: Neck pain and other joint pains LYMPHATICS: None HEMATOLOGICAL: None PSYCHIATRY: Slight forgetfulness NEUROLOGICAL: Baseline some unsteadiness of gait Past medical history to include: COPD, TIA, diabetes, GERD, hypertension, hyperlipidemia, osteoarthritis, seizure disorder the last episode being over 10 years ago, TIA about 10 years ago diverticulitis, temporal arteritis, pain clinic procedures Social history: Daughter Kendra lives with her. Patient smoked for 46 years stopping about 29 years ago. Smoked a pack a day. No alcohol. Physical examination: VITAL SIGNS: 98.2, 87, 18, 162/84, 95% on room air GENERAL: BMI 20.3, reclining in bed awake. EYES: Pupils equal. Conjunctiva normal. HEENT: External appearance of nose and ears normal, oral cavity grossly normal. NECK: Neck collar in place. HEART: First and second heart sounds are normal; no edema. LUNGS: Respiratory rate normal; decreased breath sounds. ABDOMEN: Soft, nontender, liver spleen not palpable, no masses palpable. MUSCULAR skeletal: Evidence of OA especially in the hands PSYCH: Alert and oriented x3; mood and affect normal. NEUROLOGICAL: Cranial nerves grossly intact; no facial asymmetry, power and sensation grossly intact. LYMPHATICS: No lymph nodes palpable in the axilla and neck INVESTIGATIONS, reviewed in the clinical context: WBC 7.6 hemoglobin at 13.3 platelets 203 potassium 3.9 creatinine 0.66 blood glucose 115 Elbow, tibia, fibula: X-ray: Negative for fracture Computed tomography scan of the head cervical spine:2 dens fracture with minimal anterolisthesis at C3-C4. Multiple areas of DJD Assessment and plan: -Acute type II dens fracture with minimal anterolisthesis at C3-C4. Patient has a cervical collar which is a big and size. Another one is being or dered by orthopedics -COPD in an ex smoker Continue with bronchodilators -Diabetes mellitus type 2 Continue with Prandin. Follow Accu-Cheks -Hyperlipidemia Continue with Lipitor -Primary osteoarthritis multiple joints Continue with pain medications when necessary Care was discussed with the patient and the daughter the bedside. Questions were answered. Add Lovenox for DVT prophylaxis. Patient will also need a walker Thank you Dr. Baltazar Past Medical History Past Medical History: Asthma, Cancer, Chest Pain / Angina, COPD, CVA/TIA, Diabetes Mellitus, GERD/Reflux, Hyperlipidemia, Hypertension, Osteoarthritis (OA), Pneumonia, Seizure Disorder Additional Past Medical History / Comment(s): TREMORS, HX OF PNEUMONIA SEVERAL T IMES, HX OF UTERINE AND SKIN CANCER, ANEMIA, "NON-FUNCTIONING GALL BLADDER", HX OF KIDNEY STONES,. occ loss of CONTROL OF HER BOWELS., "TEMPORAL ARTERITIS" excema, INSOMNIA,HIATAL HERNIA, last seizure about 10 yrs ago, told TIA 10-12 yrs ago, diff swallowing and wt loss of about 2 lbs a week, diverticulitis, hx prednisone induced diabetes, cervical dystonia History of Any Multi-Drug Resistant Organisms: None Reported Past Surgical History: Heart Catheterization, Hysterectomy Additional Past Surgical History / Comment(s): VARICOSE VEINS REMOVED, HEART CATH X2. CATARACTS, SKIN CA REMOVED, pain clinic procedure Past Anesthesia/Blood Transfusion Reactions: Previous Problems w/ Anesthesia, Motion Sickness Additional Past Anesthesia/Blood Transfusion Reaction / Comm: SEVERE REACTION TO FENTANYL AND DEMEROL. Past Psychological History: No Psychological Hx Reported Smoking Status: Never smoker Past Alcohol Use History: None Reported Additional Past Alcohol Use History / Comment(s): STARTED SMOKING AT AGE 10 - QUIT AT AGE 56, SMOKED 1 PPD Past Drug Use History: None Reported - Past Family History Father Additional Family Medical History / Comment(s): AT AGE 29-NOT SURE OF CAUSE Mother Family Medical History: Cancer Additional Family Medical History / Comment(s): . Brother(s) Family Medical History: Cancer Additional Family Medical History / Comment(s): . Daughter(s) Family Medical History: Cancer Additional Family Medical History / Comment(s): COLON CANCER Medications and Allergies Home Medications Medication Instructions Recorded Confirmed Type Albuterol Sulfate [Proair Hfa] 2 puff INHALATION RT-Q4H PRN 12/26/14 08/05/20 History Atorvastatin [Lipitor] 10 mg PO HS 12/26/14 08/05/20 History Ipratropium Nebulized [Atrovent 0.5 mg INHALATION RT-TID 12/26/14 08/05/20 History Nebulized 0.2 MG/ML] Repaglinide [Prandin] 0.5 mg PO AC-BID PRN 12/26/14 08/05/20 History amLODIPine [Norvasc] 5 mg PO DAILY 12/26/14 08/05/20 History Aspirin EC [Ecotrin Low Dose] 81 mg PO DAILY 02/13/15 08/05/20 History Levalbuterol HCl [Xopenex 1.25 mg INHALATION RT-TID 02/13/15 08/05/20 History Nebulized] Montelukast [Singulair] 10 mg PO HS 02/13/15 08/05/20 History Magnesium Oxide [Mag-Ox] 400 mg PO DAILY 08/25/15 08/05/20 History Eszopiclone 1 mg PO HS 03/06/17 08/05/20 History Budesonide/Formoterol Fumarate 2 puff INHALATION RT-BID 02/11/20 08/05/20 History [Symbicort 160-4.5 Mcg Inhaler] Pregabalin [Lyrica] 50 mg PO DAILY 02/11/20 08/05/20 History Pregabalin [Lyrica] 75 mg PO HS 02/11/20 08/05/20 History Jhr-Lkrb-Rgblu Acid 1 cap PO DAILY 02/11/20 08/05/20 History [-U Capsule (formulary)] Allergies Allergy/AdvReac Type Severity Reaction Status Date / Time codeine Allergy Dyspnea/hiv Verified 08/05/20 18:10 es fentanyl Allergy Anaphylaxis Verified 08/05/20 18:10 Iodinated Contrast Media Allergy Anaphylaxis Verified 08/05/20 18:10 [Iodinated Contrast Media - IV Dye] meperidine HCl [From Demerol] Allergy Anaphylaxis Verified 08/05/20 18:10 omeprazole Allergy Swelling/Ra Verified 08/05/20 18:10 sh adhesive tape AdvReac THIN AND Verified 08/05/20 18:10 SENSITIVE SKIN/RASH Physical Exam Vitals: Vital Signs Temp Pulse Pulse Resp BP BP Pulse Ox 08/06/20 07:00 98.2 F 87 18 162/84 95 08/06/20 02:00 98.0 F 76 16 122/67 97 08/06/20 00:05 18 08/05/20 20:20 80 18 166/65 95 08/05/20 19:00 90 08/05/20 18:31 90 08/05/20 18:19 88 08/05/20 18:18 98.0 F 96 16 161/94 96 08/05/20 18:00 90 08/05/20 17:00 90 08/05/20 16:00 97.6 F 80 18 179/62 99 08/05/20 15:00 18 08/05/20 13:23 98 F 78 18 154/64 96 Intake and Output 08/05/20 08/06/20 08/06/20 22:59 06:59 14:59 Intake Total 650 Balance 650 Intake: Oral 650 Other: Voiding Method Toilet Toilet # Voids 1 3 Weight 53.524 kg Results CBC & Chem 7: 08/05/20 15:33 08/05/20 15:33 Labs: Abnormal Lab Results - Last 24 Hours (Table) 08/05/20 08/05/20 Range/Units 15:33 15:33 Lymphocytes # 0.9 L (1.0-4.8) k/uL Sodium 136 L (137-145) mmol/L BUN 18 H (7-17) mg/dL Glucose 115 H (74-99) mg/dL
[2020-08-06] MEDS: SYMBICORT 160-4.5 MCG INHALER INHALATION SCH (19:51)
[2020-08-06] MEDS ORDERED: PREGABALIN 75 MG CAP PO SCH (21:00)
[2020-08-06] MEDS ORDERED: ATORVASTATIN 10 MG TAB PO SCH (21:00)
[2020-08-06] MEDS ORDERED: ZOLPIDEM 5 MG TAB PO SCH (21:00)
[2020-08-06] MEDS ORDERED: MONTELUKAST 10 MG TAB PO SCH (21:00)
[2020-08-07] MEDS: ACETAMINOPHEN TAB 325 MG TAB PO PRN ×2 (03:56→12:13)
[2020-08-07] MEDS: ALBUTEROL NEBULIZED 2.5 MG/3 ML INHALATION SCH ×2 (04:05→12:35)
[2020-08-07] MEDS: MAGNESIUM OXIDE 400 MG TAB PO SCH (08:09)
[2020-08-07] MEDS: PRENATAL VIT-IRON-FOLIC ACID 1 EACH CAP PO SCH (08:09)
[2020-08-07] MEDS: PREGABALIN 50 MG CAP PO SCH (08:09)
[2020-08-07] MEDS: amLODIPine 5 MG TAB PO SCH (08:09)
[2020-08-07] MEDS: ASPIRIN 81 MG PO SCH (08:09)
--- NOTE | 2020-08-07 08:56 | P.DS ---
Providers Date of admission: 08/05/20 17:33 Expected date of discharge: 08/07/20 Attending physician: nAa Lilia Baltazar Consults: 08/05/20 17:17 Consult Physician Stat Consulting Provider: Helio Johnson Consult Reason/Comments: Type II dens fracture, unsafe discharge home Do you want consulting provider notified?: Yes Primary care physician: Perry Knapp - Discharge Diagnosis(es) (1) Status post fall Current Visit: Yes Status: Acute (2) Cervical pain Current Visit: Yes Status: Acute (3) Spondylolisthesis, cervical region Current Visit: Yes Status: Acute (4) Degenerative cervical disc Current Visit: Yes Status: Acute (5) Scoliosis of cervical region due to degenerative disease of spine in adult Current Visit: Yes Status: Acute (6) Cervical spondylosis Current Visit: Yes Status: Acute (7) Osteophyte Current Visit: Yes Status: Acute (8) COPD (chronic obstructive pulmonary disease) Current Visit: Yes Status: Acute (9) Diabetes mellitus Current Visit: Yes Status: Acute (10) Hypertension Current Visit: Yes Status: Acute (11) Hyperlipidemia Current Visit: Yes Status: Acute (12) History of seizure disorder Current Visit: Yes Status: Acute (13) Knee osteoarthritis Current Visit: Yes Status: Acute (14) Type II dens fracture of second cervical vertebra Current Visit: Yes Status: Acute Hospital Course: This is a pleasant 85 year old female who presented with C2 Type II Dens fractur e status post fall. She was fitted with a hard cervical collar in the operating room has not fitted appropriately. A prescription has been written provided a case management today for an [place] Hard Cervical Collar. Once this brace is delivered and fitted appropriately, patient is cleared for discharge home. Patient feels she is ready for discharge home today. She does have some ongoing cervical pain with some pain over the trapezius bilaterally. She states she does have a walker at home to aid in ambulation. Consult has been placed with social work to plan for Homecare at the time of discharge. Condition on day of discharge stable. Patient will be discharged home once cleared by medicine. Patient currently denies any nausea, vomiting, fever, or chills. Patient is eating and voiding freely without difficulty but does admit to some difficulty with chewing due to her hard cervical collar. We again discussed patient should keep hard cervical collar intact at all times even while bathing. We did discuss her initial hard collar could be worn while showering while utilizing the [place] hard cervical collar at all other times. She is encouraged to use her walker to aid in ambulation. She should avoid excessive range of motion of the cervical spine. She should avoid any heavy lifting with the upper extremities bilaterally. No lifting greater than 10 pounds. Avoid overhead activities. Her other medical diagnoses include history of CVA/TIA, diabetes mellitus, hyperlipidemia, hypertension, COPD, and history of seizure disorder. She is given a prescription for acetaminophen 650 mg 1 tablet every 6 hours as needed for pain. This prescription is sent down to the pharmacy here [facility]. Patient may resume her other previously prescribed home medications. Physical Exam on day of discharge: Patient is awake, alert, and oriented 3 Vital signs stable Good chest excursion with deep inspiration and expiration Examination of the cervical spine reveals skin is intact with no abrasions, lacerations, or bruises; no erythema, purulence or signs of infection Evidence of a small well-healed incision of the posterior cervical spine with a small soft tissue protrusion which the patient states is chronic for years Some pain on palpation over the trapezius bilaterally Reduced range of motion of the cervical spine with adequate flexion, extension, and bilateral rotation Patient's head is side bend to the right Hard cervical collar intact; hard collar is removed and reapplied to sit better during physical examination Biomass Production Manager strength, thumb strength, interosseous strength, biceps strength, triceps strength, and shoulder strength positive sustained bilaterally Upper extremity strength 5/5 bilaterally No upper extremity hyperreflexia bilaterally Hoffmans sign negative upper extremity bilaterally Patient Condition at Discharge: Stable Plan - Discharge Summary Discharge Rx Participant: No New Discharge Prescriptions: New Acetaminophen [Acetaminophen ER] 650 mg PO Q4HR PRN #30 tablet.er PRN Reason: Pain No Action Albuterol Sulfate [Proair Hfa] 2 puff INHALATION RT-Q4H PRN PRN Reason: Shortness Of Breath amLODIPine [Norvasc] 5 mg PO DAILY Ipratropium Nebulized [Atrovent Nebulized 0.2 MG/ML] 0.5 mg INHALATION RT-TID Atorvastatin [Lipitor] 10 mg PO HS Repaglinide [Prandin] 0.5 mg PO AC-BID PRN PRN Reason: blood sugar > 150 Aspirin EC [Ecotrin Low Dose] 81 mg PO DAILY Montelukast [Singulair] 10 mg PO HS Levalbuterol HCl [Xopenex Nebulized] 1.25 mg INHALATION RT-TID Magnesium Oxide [Mag-Ox] 400 mg PO DAILY Eszopiclone 1 mg PO HS Budesonide/Formoterol Fumarate [Symbicort 160-4.5 Mcg Inhaler] 2 puff INHALATION RT-BID Pregabalin [Lyrica] 75 mg PO HS Pregabalin [Lyrica] 50 mg PO DAILY Bli-Ckyz-Tlwvr Acid [-U Capsule (formulary)] 1 cap PO DAILY Discharge Medication List Albuterol Sulfate [Proair Hfa] 2 puff INHALATION RT-Q4H PRN 12/26/14 [History] Atorvastatin [Lipitor] 10 mg PO HS 12/26/14 [History] Ipratropium Nebulized [Atrovent Nebulized 0.2 MG/ML] 0.5 mg INHALATION RT-TID 12/26/14 [History] Repaglinide [Prandin] 0.5 mg PO AC-BID PRN 12/26/14 [History] amLODIPine [Norvasc] 5 mg PO DAILY 12/26/14 [History] Aspirin EC [Ecotrin Low Dose] 81 mg PO DAILY 02/13/15 [History] Levalbuterol HCl [Xopenex Nebulized] 1.25 mg INHALATION RT-TID 02/13/15 [History] Montelukast [Singulair] 10 mg PO HS 02/13/15 [History] Magnesium Oxide [Mag-Ox] 400 mg PO DAILY 08/25/15 [History] Eszopiclone 1 mg PO HS 03/06/17 [History] Budesonide/Formoterol Fumarate [Symbicort 160-4.5 Mcg Inhaler] 2 puff INHALATION RT-BID 02/11/20 [History] Pregabalin [Lyrica] 50 mg PO DAILY 02/11/20 [History] Pregabalin [Lyrica] 75 mg PO HS 02/11/20 [History] Ach-Vjld-Elgfg Acid [-U Capsule (formulary)] 1 cap PO DAILY 02/11/20 [History] Acetaminophen [Acetaminophen ER] 650 mg PO Q4HR PRN #30 tablet.er 08/07/20 [Rx] Follow up Appointment(s)/Referral(s): Perry Knapp MD [Primary Care Provider] - 1-2 days Mitul Kovacs PAC [PHYSICIAN ELECTRICIAN UNDERGROUND] - 1 Week (Patient may follow-up with Mitul Kovacs PA-C or Dr. Issac Baltazar at [facility] in 1 week following discharge. ) Activity/Diet/Wound Care/Special Instructions: 1. Patient must keep hard cervical collar intact at all times even while bathing. 2. Patient should avoid any heavy lifting with the upper extremity; no lifting greater than 10 pounds 3. Avoid overhead activities Discharge Disposition: HOME WITH HOME HEALTH SERVICES
[2020-08-07] MEDS: SYMBICORT 160-4.5 MCG INHALER INHALATION SCH (09:40)
[2020-08-07] MEDS: IPRATROPIUM 0.5 MG/2.5 ML NEBU INHALATION SCH (09:40)
[2020-08-07 14:34] VITALS: BP 148/66; PULSE 81; RESP 16; TEMP 98.1
--- NOTE | 2020-08-07 23:41 | P.PN ---
Progress Note - Text Progress Note Date: 08/07/20 - Chief Complaint Neck pain - History of Present Illness Consultation: This is a pleasant 85 patient of . Chronic stable medical conditions include COPD, diabetes, GERD, hyperlipidemia, hypertension, or stricture to his, seizure disorder, insomnia, hiatal hernia,. At baseline patient is slightly unsteady on her feet while walking but does not use any supportive cane or walker. Patient's daughter is visiting here from [place] at the bedside. Patient is other daughter who lives with her, diabetes, followed at home. Patient was found to help her get up to come fall herself. She had the floor with the left side of her presybeterian area and contact the floor. She did not lose cautiousness. She presented with bilateral neck tightness stiffness and pain. No weakness of the arms or leg. Having trouble turning her neck. I type II dens fracture with minimal anterolisthesis of C3-C4 was discovered. She was given a neck collar. It was felt she was unstable to go home hence admitted for the same. Patient's current neck collar is too big for her and awaiting a new collar that'll be ordered tomorrow after the weekend Today: Sitting up. So the patient this morning. Pending a replacement cervical collar. Daughter the bedside. Questions answered. Patient be getting some home help. No new reported weakness of the arms or legs. Review of systems: Was done for constitutional, cardiovascular, GI, pulmonary. relevant finding as above Current medications reviewed in today's electronic records Past medical history to include: COPD, TIA, diabetes, GERD, hypertension, hyperlipidemia, osteoarthritis, seizure disorder the last episode being over 10 years ago, TIA about 10 years ago diverticulitis, temporal arteritis, pain clinic procedures Social history: Daughter Kendra lives with her. Patient smoked for 46 years stopping about 29 years ago. Smoked a pack a day. No alcohol. Physical examination: VITAL SIGNS: 98.1, 81, 16, 148 basically 6, 92% room air GENERAL: BMI 20.3, reclining in bed awake. EYES: Pupils equal. Conjunctiva normal. HEENT: External appearance of nose and ears normal, oral cavity grossly normal. NECK: Neck collar in place. HEART: First and second heart sounds are normal; no edema. LUNGS: Respiratory rate normal; decreased breath sounds. ABDOMEN: Soft, nontender, liver spleen not palpable, no masses palpable. MUSCULAR skeletal: Evidence of OA especially in the hands PSYCH: Alert and oriented x3; mood and affect normal. NEUROLOGICAL: Cranial nerves grossly intact; no facial asymmetry, power in both the arms equal and fair. INVESTIGATIONS, reviewed in the clinical context: WBC 7.6 hemoglobin at 13.3 platelets 203 potassium 3.9 creatinine 0.66 blood glucose 115 Elbow, tibia, fibula: X-ray: Negative for fracture Computed tomography scan of the head cervical spine:2 dens fracture with minimal anterolisthesis at C3-C4. Multiple areas of DJD Assessment and plan: -Acute type II dens fracture with minimal anterolisthesis at C3-C4. Patient has a cervical collar which is a big and size. Another one is ordered by orthopedics -COPD in an ex smoker Continue with bronchodilators -Diabetes mellitus type 2 Continue with Prandin. Follow Accu-Cheks -Hyperlipidemia Continue with Lipitor -Primary osteoarthritis multiple joints Continue with pain medications when necessary Care discussed with the patient. Follow-up with PCP on discharge. Thank you Dr. Baltazar
== END 2020-08-07 14:30 | disposition home health service (06) ==
LOC: EC 12:55 → 1SOBS 17:33
PROVIDERS: ADMIT Orthopaedic Surgery Orthopaedic Surgery of the Spine; ATTEND Orthopaedic Surgery Orthopaedic Surgery of the Spine
DX: S12.110A Anterior displaced Type II dens fracture, initial encounter for closed fracture (principal); S09.90XA Unspecified injury of head, initial encounter; M43.12 Spondylolisthesis, cervical region; M50.31 Other cervical disc degeneration, high cervical region; M47.812 Spondylosis without myelopathy or radiculopathy, cervical region; J44.9 Chronic obstructive pulmonary disease, unspecified; E78.5 Hyperlipidemia, unspecified; G89.29 Other chronic pain; G40.909 Epilepsy, unspecified, not intractable, without status epilepticus; I10 Essential (primary) hypertension; M41.82 Other forms of scoliosis, cervical region; M25.78 Osteophyte, vertebrae; K21.9 Gastro-esophageal reflux disease without esophagitis; E09.9 Drug or chemical induced diabetes mellitus without complications; T38.0X5A Adverse effect of glucocorticoids and synthetic analogues, initial encounter; D64.9 Anemia, unspecified; R25.1 Tremor, unspecified; G47.00 Insomnia, unspecified; K44.9 Diaphragmatic hernia without obstruction or gangrene; M31.6 Other giant cell arteritis; K57.90 Diverticulosis of intestine, part unspecified, without perforation or abscess without bleeding; M17.11 Unilateral primary osteoarthritis, right knee; R26.81 Unsteadiness on feet; W19.XXXA Unspecified fall, initial encounter; Y92.000 Kitchen of unspecified non-institutional (private) residence as the place of occurrence of the external cause; Z79.82 Long term (current) use of aspirin; Z79.51 Long term (current) use of inhaled steroids; Z79.899 Other long term (current) drug therapy; Z88.5 Allergy status to narcotic agent; Z88.8 Allergy status to other drugs, medicaments and biological substances; Z91.041 Radiographic dye allergy status; Z87.891 Personal history of nicotine dependence; Z86.73 Personal history of transient ischemic attack (TIA), and cerebral infarction without residual deficits; Z87.01 Personal history of pneumonia (recurrent); Z85.828 Personal history of other malignant neoplasm of skin; Z87.442 Personal history of urinary calculi; Z90.710 Acquired absence of both cervix and uterus; Z98.49 Cataract extraction status, unspecified eye; Z85.42 Personal history of malignant neoplasm of other parts of uterus; Z98.890 Other specified postprocedural states; Z80.0 Family history of malignant neoplasm of digestive organs
CPT/HCPCS: 99285; 36415; 94640 ×4; 80048; 85025; 85610; 85730; 73080; 73590; 72125; 70450; G0378 ×3; S0197 ×2

== ENCOUNTER 2020-08-28 10:33 | Emergency (ER) | payer MEDICARE, OTHER ==
[2020-08-28 10:41] VITALS: BP 131/61; PULSE 75; RESP 18; TEMP 97.7
[2020-08-28] MEDS ORDERED: KETOROLAC 15 MG/ML 1 ML VIAL IM STA (11:05)
--- NOTE | 2020-08-28 13:08 | CT ---
EXAMINATION TYPE: CT cervical spine wo con DATE OF EXAM: 08/28/2020 COMPARISON: CT cervical spine August 05, 2020 HISTORY: Prior surgery to neck for type II dens fracture with increasing pain CT DLP: 222 mGycm. Automated Exposure Control for Dose Reduction was Utilized. TECHNIQUE: CT scan of the cervical spine is obtained without contrast, axial images are obtained, sa gittal and coronal reformatted images are also reviewed. FINDINGS: Cervical spine is visualized in its entirety from C1 through upper thoracic levels, redemon strates reversal of normal cervical curvature centered at C5 level and levoconvex scoliotic curvature centered at C5 level. There is redemonstration of type II odontoid fracture on coronal images. Align ment is stable. No new fracture or dislocation. Vertebral body heights are maintained. Stable mild mu ltilevel disc space narrowing with moderate multilevel anterior spurring. Posterior spur disc complex effaces the anterior thecal sac at C5-C6 and C6-C7 level similar prior. No new fracture or dislocati on seen. Axial images show some multilevel uncovertebral facet degenerative changes contributing to multilevel bilateral neural foraminal narrowing. There is moderate to severe calcified plaque near medial cours ing carotid bulbs similar to prior. Thyroid gland is heterogeneous in appearance and normal in size. Lung apices show no pneumothorax. IMPRESSION: There is no new acute fracture or dislocation evident in the cervical spine. Stable alig nment and multilevel degenerative changes as detailed above. Unchanged type II odontoid fracture.
--- NOTE | 2020-08-28 13:20 | ED ---
Neck Injury/Pain HPI - General Chief Complaint: Neck Pain/Injury Stated Complaint: neck pain Time Seen by Provider: 08/28/20 10:53 Mode of arrival: wheelchair Limitations: no limitations - History of Present Illness Initial Comments: 85-year-old female presenting for neck pain. Patient states that she was diagnosed with a cervical fracture 3 weeks ago. Patient states occurred after a fall she states she's falling orthopedic spine who states she needs to be in the neck brace for 3 months. Patient states that she feels like it is getting slightly loose and now she is having increased pain she denies any weakness or sensation deficits down the arm she denies a radiation of the pain down the arms. She denies any fevers. Patient denies any new falls or trauma. Patient is no additional complaints remaining review systems negative - Related Data Home Medications Medication Instructions Recorded Confirmed Albuterol Sulfate [Proair Hfa] 2 puff INHALATION RT-Q4H PRN 12/26/14 08/05/20 Atorvastatin [Lipitor] 10 mg PO HS 12/26/14 08/05/20 Ipratropium Nebulized [Atrovent 0.5 mg INHALATION RT-TID 12/26/14 08/05/20 Nebulized 0.2 MG/ML] Repaglinide [Prandin] 0.5 mg PO AC-BID PRN 12/26/14 08/05/20 amLODIPine [Norvasc] 5 mg PO DAILY 12/26/14 08/05/20 Aspirin EC [Ecotrin Low Dose] 81 mg PO DAILY 02/13/15 08/05/20 Levalbuterol HCl [Xopenex 1.25 mg INHALATION RT-TID 02/13/15 08/05/20 Nebulized] Montelukast [Singulair] 10 mg PO HS 02/13/15 08/05/20 Magnesium Oxide [Mag-Ox] 400 mg PO DAILY 08/25/15 08/05/20 Eszopiclone 1 mg PO HS 03/06/17 08/05/20 Budesonide/Formoterol Fumarate 2 puff INHALATION RT-BID 02/11/20 08/05/20 [Symbicort 160-4.5 Mcg Inhaler] Pregabalin [Lyrica] 50 mg PO DAILY 02/11/20 08/05/20 Pregabalin [Lyrica] 75 mg PO HS 02/11/20 08/05/20 [id number] Acid 1 cap PO DAILY 02/11/20 08/05/20 [-U Capsule (formulary)] Previous Rx's Medication Instructions Recorded Acetaminophen [Acetaminophen ER] 650 mg PO Q4HR PRN #30 tablet.er 08/07/20 Allergies Allergy/AdvReac Type Severity Reaction Status Date / Time codeine Allergy Dyspnea/hiv Verified 08/28/20 10:37 es fentanyl Allergy Anaphylaxis Verified 08/28/20 10:37 Iodinated Contrast Media Allergy Anaphylaxis Verified 08/28/20 10:37 [Iodinated Contrast Media - IV Dye] meperidine HCl [From Demerol] Allergy Anaphylaxis Verified 08/28/20 10:37 omeprazole Allergy Swelling/Ra Verified 08/28/20 10:37 sh adhesive tape AdvReac THIN AND Verified 08/28/20 10:37 SENSITIVE SKIN/RASH Review of Systems ROS Statement: Those systems with pertinent positive or pertinent negative responses have been documented in the HPI. ROS Other: All systems not noted in ROS Statement are negative. Past Medical History Past Medical History: Asthma, Cancer, Chest Pain / Angina, COPD, CVA/TIA, Diabetes Mellitus, GERD/Reflux, Hyperlipidemia, Hypertension, Osteoarthritis (OA), Pneumonia, Seizure Disorder Additional Past Medical History / Comment(s): TREMORS, HX OF PNEUMONIA SEVERAL TIMES, HX OF UTERINE AND SKIN CANCER, ANEMIA, "NON-FUNCTIONING GALL BLADDER", HX OF KIDNEY STONES,. occ loss of CONTROL OF HER BOWELS., "TEMPORAL ARTERITIS" excema, INSOMNIA,HIATAL HERNIA, last seizure about 10 yrs ago, told TIA 10-12 yrs ago, diff swallowing and wt loss of about 2 lbs a week, diverticulitis, hx prednisone induced diabetes, cervical dystonia History of Any Multi-Drug Resistant Organisms: None Reported Past Surgical History: Heart Catheterization, Hysterectomy Additional Past Surgical History / Comment(s): VARICOSE VEINS REMOVED, HEART CATH X2. CATARACTS, SKIN CA REMOVED, pain clinic procedure Past Anesthesia/Blood Transfusion Reactions: Previous Problems w/ Anesthesia, Motion Sickness Additional Past Anesthesia/Blood Transfusion Reaction / Comment(s): SEVERE REACTION TO FENTANYL AND DEMEROL. Past Psychological History: No Psychological Hx Reported Smoking Status: Never smoker Past Alcohol Use History: None Reported Past Drug Use History: None Reported - Past Family History Father Additional Family Medical History / Comment(s): AT AGE 29-NOT SURE OF CAUSE Mother Family Medical History: Cancer Additional Family Medical History / Comment(s): . Brother(s) Family Medical History: Cancer Additional Family Medical History / Comment(s): . Daughter(s) Family Medical History: Cancer Additional Family Medical History / Comment(s): COLON CANCER General Exam - General Exam Comments Initial Comments: General: The patient is awake and alert, in no distress, and does not appear acutely ill. Eye: +3 mm pupils are equal, round and reactive to light, extra-ocular movements are intact. No nystagmus. There is normal conjunctiva bilaterally. No signs of icterus. Ears, nose, mouth and throat: There are moist mucous membranes and no oral lesions. Neck: The neck is supple, there is no tenderness or JVD. C-collar in place, slightly loose fit-but is keeping head in fixed position. Cardiovascular: There is a regular rate and rhythm. No murmur, rub or gallop is appreciated. Respiratory: Lungs are clear to auscultation, respirations are non-labored, breath sounds are equal. No wheezes, stridor, rales, or rhonchi. Musculoskeletal: Normal ROM, no tenderness. Strength 5/5 of the UE b/l equally. Sensation intact of the UE b/l equally. Radial pulses equal bilaterally 2+. Neurological: A&O x 3. CN II-XII intact, There are no obvious motor or sensory deficits. Coordination appears grossly intact. Speech is normal. Skin: Skin is warm and dry and no rashes or lesions are noted. Psychiatric: Cooperative, appropriate mood & affect, normal judgment. Limitations: no limitations Course Vital Signs 08/28/20 10:38 Temperature 97.7 F Pulse Rate 75 Respiratory 18 Rate Blood Pressure 131/61 O2 Sat by Pulse 100 Oximetry Medical Decision Making - Medical Decision Making CT no change. Pt is following orthopedic spine. She is in neck brace. adjusted brace, pt states feels more supported. pt given medications for pain management. and was discharged with orthopedic f/u. Dr Curtis agreeable to care plan. Pt agreeable to care plan and discharge. Disposition Clinical Impression: Cervical spine fracture Disposition: HOME SELF-CARE Condition: Good Instructions (If sedation given, give patient instructions): Cervical Fracture (ED) Additional Instructions: Please use medication as discussed. Please follow-up with family doctor in the next 2 days. Please follow-up with orthopedic spine as scheduled. Please return to emergency room if the symptoms increase or worsen or for any other concerns. Is patient prescribed a controlled substance at d/c from ED?: No Referrals: Perry Knapp MD [Primary Care Provider] - 1-2 days Ana Lilia Baltazar DO [Doctor of Osteopathic Medicine] - 1-2 days Time of Disposition: 13:20
== END 2020-08-28 13:52 | disposition home or self-care (01) ==
LOC: EC 10:33
DX: S12.110A Anterior displaced Type II dens fracture, initial encounter for closed fracture (principal); E78.5 Hyperlipidemia, unspecified; I10 Essential (primary) hypertension; J44.9 Chronic obstructive pulmonary disease, unspecified; K21.9 Gastro-esophageal reflux disease without esophagitis; M19.90 Unspecified osteoarthritis, unspecified site; G40.909 Epilepsy, unspecified, not intractable, without status epilepticus; Z95.5 Presence of coronary angioplasty implant and graft; Z90.710 Acquired absence of both cervix and uterus; Z85.828 Personal history of other malignant neoplasm of skin; Z86.73 Personal history of transient ischemic attack (TIA), and cerebral infarction without residual deficits; Z87.442 Personal history of urinary calculi
CPT/HCPCS: 72125; 99283; 96372; J1885

== ENCOUNTER → 2020-11-06 | Outpatient (CLI) | payer MEDICARE, OTHER ==
--- NOTE | 2020-11-06 21:53 | CT ---
EXAMINATION TYPE: CT cervical spine wo con DATE OF EXAM: 11/06/2020 COMPARISON: Prior CT cervical spine 08/28/2020 HISTORY: Cervicalgia, other nondisplaced fracture of second cervical vertebra, C2 dens fracture. Pt i n neck brace and instructed not to remove it, unable to relax head down CT DLP: 292.60 mGycm Automated exposure control for dose reduction was used. TECHNIQUE: CT scan of the cervical spine is obtained without contrast, axial images are obtained, sagittal and c oronal reformatted images are also reviewed. FINDINGS: Findings a similar prior exam, displaced type II dens fracture is noted, there is likely bone resorpt ion the site of patient's fracture, findings suggest a chronic finding, there is local eburnation, ar thropathy at the atlantodens articulation. There is multilevel spondylosis, anterolisthesis grade 1 C 3-4, C4-5 shows a similar appearance, there is loss of disc height at intervertebral levels. Facet ar thropathy changes are present. There is a spinal curvature present. Multilevel foraminal encroachment noted. There is multilevel spondylosis. Vertebral body heights are maintained. Cervical spine is visualized in its entirety from C1 through upper thoracic levels, demonstrates stab le alignment. Prevertebral soft tissue appears unchanged. IMPRESSION: Stable type II odontoid fracture. Stable alignment. Degenerative disc disease, scoliosis, facet arthr opathy, foraminal encroachment.
== END | disposition home or self-care (01) ==
LOC: RADCTMAIN 17:05
PROVIDERS: ATTEND Orthopaedic Surgery Orthopaedic Surgery of the Spine
DX: S12.110A Anterior displaced Type II dens fracture, initial encounter for closed fracture (principal); M50.30 Other cervical disc degeneration, unspecified cervical region; M41.82 Other forms of scoliosis, cervical region; M47.812 Spondylosis without myelopathy or radiculopathy, cervical region; M99.71 Connective tissue and disc stenosis of intervertebral foramina of cervical region
CPT/HCPCS: 72125

== ENCOUNTER 2022-10-12 15:21 | Inpatient (IN) | payer MEDICARE, OTHER ==
[2022-10-12] MEDS ORDERED: ACETAMINOPHEN IV (For NPO) 1,000 MG in EMPTY BAG 1 BAG IVPB STA (15:44)
[2022-10-12] MEDS ORDERED: IBUPROFEN IV 500 MG in SODIUM CHLORIDE 0.9% 250 ML IV ONE (15:44)
[2022-10-12] MEDS ORDERED: SODIUM CHLORIDE 0.9% 1,000 ML IV STA ×2 (15:44→18:57)
--- NOTE | 2022-10-12 15:46 | ED ---
Dizziness HPI - General Chief Complaint: Dizziness Stated Complaint: Dizziness Time Seen by Provider: 10/12/22 15:44 Source: patient, EMS, RN notes reviewed, old records reviewed, Caregiver Mode of arrival: EMS Limitations: no limitations - History of Present Illness Initial Comments: This is a 87-year-old female presented today for evaluation regards to not feeling well altered dysuria, patient also complains of feeling hot and cold, fever. He was complaints of dizziness. No travel history no sick contacts, no nausea vomiting diarrhea headaches or recent trauma MD Complaint: dizziness, lightheadedness, other (fever) -: hour(s) Timing: gradual onset Description: sense of movement, "room spinning", lightheadedness History of Same: Yes History of Trauma: No Severity: moderate Improves With: nothing Worsens With: nothing Associated Symptoms: confusion, malaise, weakness - Related Data Home Medications Medication Instructions Recorded Confirmed Albuterol Sulfate [Proair Hfa] 2 puff INHALATION RT-Q4H PRN 12/26/14 10/15/22 Atorvastatin [Lipitor] 10 mg PO HS 12/26/14 10/15/22 Ipratropium Nebulized [Atrovent 0.5 mg INHALATION RT-TID 12/26/14 10/15/22 Nebulized 0.2 MG/ML] amLODIPine [Norvasc] 5 mg PO DAILY 12/26/14 10/15/22 Montelukast [Singulair] 10 mg PO HS 02/13/15 10/15/22 Pregabalin [Lyrica] 50 mg PO DAILY 02/11/20 10/15/22 Pregabalin [Lyrica] 75 mg PO HS 02/11/20 10/15/22 [id number] Acid 1 cap PO DAILY 02/11/20 10/15/22 [-U Capsule (formulary)] Eszopiclone [Lunesta] 2 mg PO HS 10/12/22 10/15/22 Furosemide [Lasix] 20 mg PO DAILY 10/12/22 10/15/22 Tiotropium 18 Mcg/Puff [Spiriva] 1 cap INHALATION RT-DAILY 10/12/22 10/15/22 Allergies Allergy/AdvReac Type Severity Reaction Status Date / Time codeine Allergy Dyspnea/hiv Verified 10/15/22 10:55 es fentanyl Allergy Anaphylaxis Verified 10/15/22 10:55 Iodinated Contrast Media Allergy Anaphylaxis Verified 10/15/22 10:55 [Iodinated Contrast Media - IV Dye] meperidine HCl [From Demerol] Allergy Anaphylaxis Verified 10/15/22 10:55 omeprazole Allergy Swelling/Ra Verified 10/15/22 10:55 sh adhesive tape AdvReac THIN AND Verified 10/15/22 10:55 SENSITIVE SKIN/RASH Review of Systems ROS Statement: Those systems with pertinent positive or pertinent negative responses have been documented in the HPI. ROS Other: All systems not noted in ROS Statement are negative. Past Medical History Past Medical History: Asthma, Cancer, Chest Pain / Angina, COPD, CVA/TIA, Diabetes Mellitus, GERD/Reflux, Hyperlipidemia, Hypertension, Osteoarthritis (OA), Pneumonia, Seizure Disorder Additional Past Medical History / Comment(s): TREMORS, HX OF PNEUMONIA SEVERAL TIMES, HX OF UTERINE AND SKIN CANCER, ANEMIA, "NON-FUNCTIONING GALL BLADDER", HX OF KIDNEY STONES,. occ loss of CONTROL OF HER BOWELS., "TEMPORAL ARTERITIS" excema, INSOMNIA,HIATAL HERNIA, last seizure about 10 yrs ago, told TIA 10-12 yrs ago, diff swallowing and wt loss of about 2 lbs a week, diverticulitis, hx prednisone induced diabetes, cervical dystonia History of Any Multi-Drug Resistant Organisms: None Reported Past Surgical History: Heart Catheterization, Hysterectomy Additional Past Surgical History / Comment(s): VARICOSE VEINS REMOVED, HEART CATH X2. CATARACTS, SKIN CA REMOVED, pain clinic procedure Past Anesthesia/Blood Transfusion Reactions: Previous Problems w/ Anesthesia, Motion Sickness Additional Past Anesthesia/Blood Transfusion Reaction / Comment(s): SEVERE REACTION TO FENTANYL AND DEMEROL. Past Psychological History: No Psychological Hx Reported Smoking Status: Never smoker Past Alcohol Use History: None Reported Past Drug Use History: None Reported - Past Family History Father Additional Family Medical History / Comment(s): AT AGE 29-NOT SURE OF CAUSE Mother Family Medical History: Cancer Additional Family Medical History / Comment(s): . Brother(s) Family Medical History: Cancer Additional Family Medical History / Comment(s): . Daughter(s) Family Medical History: Cancer Additional Family Medical History / Comment(s): COLON CANCER General Exam Limitations: no limitations General appearance: alert, in no apparent distress, anxious, in distress Head exam: Present: atraumatic, normocephalic, normal inspection Eye exam: Present: normal appearance, PERRL, EOMI. Absent: scleral icterus, conjunctival injection, periorbital swelling ENT exam: Present: normal exam, mucous membranes moist Neck exam: Present: normal inspection. Absent: tenderness, meningismus, lymphadenopathy Respiratory exam: Present: normal lung sounds bilaterally. Absent: respiratory distress, wheezes, rales, rhonchi, stridor Cardiovascular Exam: Present: regular rate, normal rhythm, normal heart sounds. Absent: systolic murmur, diastolic murmur, rubs, gallop, clicks GI/Abdominal exam: Present: soft, normal bowel sounds. Absent: distended, tenderness, guarding, rebound, rigid Extremities exam: Present: normal inspection, full ROM, normal capillary refill. Absent: tenderness, pedal edema, joint swelling, calf tenderness Back exam: Present: normal inspection Neurological exam: Present: alert, oriented X3, CN II-XII intact Psychiatric exam: Present: normal affect, normal mood Skin exam: Present: warm, dry, intact, normal color. Absent: rash Course Vital Signs 10/12/22 10/12/22 10/12/22 15:25 18:18 19:01 Temperature 102.1 F H 99.0 F 98.8 F Pulse Rate 87 88 78 Respiratory 20 20 18 Rate Blood Pressure 145/58 143/67 138/80 O2 Sat by Pulse 95 98 98 Oximetry Fraction of Inspired Oxygen (FIO2) 10/12/22 10/12/22 10/12/22 19:45 20:21 20:25 Temperature Pulse Rate 88 82 78 Respiratory 8 L Rate Blood Pressure 136/58 O2 Sat by Pulse 91 L Oximetry Fraction of Inspired Oxygen (FIO2) 10/12/22 10/12/22 10/12/22 20:35 20:50 21:42 Temperature 98.9 F Pulse Rate 93 Respiratory 15 Rate Blood Pressure 139/56 O2 Sat by Pulse 98 Oximetry Fraction of 40 40 Inspired Oxygen (FIO2) - Reevaluation(s) Reevaluation #1: 10/12/22 19:25 Medical record is reviewed Reevaluation #2: 10/12/22 19:26 Symptoms are dramatically improved here in the ER Reevaluation #3: 10/12/22 19:26 Patient is informed of results and questions have been answered 10/12/22 19:32 Patient had symptoms significant change in condition prior to discharge, patient was unresponsive, Spoke with family as patient was not protecting her airway and patient will remain a DO NOT RESUSCITATE no code Chest x-ray is repeated which shows increasing fluid overload, we'll continue to hold fluids Repeat chest x-ray also shows pneumonia ABG shows ventilatory distress and failure patient is placed on BiPAP Reevaluation #4: 10/12/22 19:26 Was pt. sent in by a medical professional or institution? @ -no Did you speak to anyone other than the patient for history? @ -no Did you review nursing and triage notes? @ -agree Were old charts reviewed? @ -no Differential Diagnosis? @ -prior EKG interpreted by me (3pts min.)? @ -yes X-rays interpreted by me (1pt min.)? @ -no CT interpreted by me (1pt min.)? @ -no U/S interpreted by me (1pt. min.)? @ -no What testing was considered but not performed? (CT, X-rays, U/S, labs)? Why? @ -no What meds were considered but not given? Why? @ -no Did you discuss the management of the patient with other professionals? @ -no Did you reconcile home meds? @ -no Was smoking cessation discussed for >3mins.? @ -no Was critical care preformed (if so, how long)? @ -no Were there social determinants of health that impacted care today? How? (Homelessness, low income, unemployed, alcoholism, drug addiction, transportation, low edu. Level, literacy, decrease access to med. care, [facility], rehab)? @ -no Was there de-escalation of care discussed even if they declined? (Discuss DNR or withdrawal of care, Hospice)? @ -no What co-morbidities impacted this encounter? (DM, HTN, Smoking, COPD, CAD, Cancer, CVA, Hep., AIDS, mental health diagnosis, sleep apnea, morbid obesity)? @ -none Was patient admitted / discharged? @ -87 female to the emergency department for evaluation of weakness lightheadedness dizziness fever and dehydration, given antibiotics and significant IV hydration here in the ER and patient set to be discharged home this is when This patient was being made for discharge, she was found to be unresponsive with significant respiratory distress. Chest x-ray had increasing pulmonary edema ABG shows increased pCO2 hypercapnic respiratory failure on BiPAP, patient is a DO NOT RESUSCITATE. Patient be admitted for current continue supportive and respiratory care Admitted Undiagnosed new problem with uncertain prognosis? @ -no Drug Therapy requiring intensive monitoring for toxicity (Heparin, Nitro, Insulin, Cardizem)? @ -no Were any procedures done? @ -no Diagnosis/symptom? @ -Hypoxia, respiratory failure Acute, or Chronic, or Acute on Chronic? @ -no Uncomplicated (without systemic symptoms) or Complicated (systemic symptoms)? @ -uncomplicated Side effects of treatment? @ -no Exacerbation, Progression, or Severe Exacerbation] @ -no Poses a threat to life or bodily function? @ -He has significant respiratory distress noted here in the emergency department hypoxia and altered mental status Reevaluation #5: 10/12/22 19:26 Differential Fever: Pneumonia, viral URI, endocarditis, myocarditis, pericarditis, otitis, sinusitis, peritonsillar Abscess, retropharyngeal Abscess, epiglottitis, peritonitis, appendicitis, Isis cystitis, diverticulitis, hepatitis, colitis, UTI, PID, TOA, pyelonephritis, prostatitis, epididymitis, meningitis, encephalitis, pulmonary embolism, CVA, thyroid storm, pancreatitis, adrenal crisis, cavernous sinus thrombosis, this is not meant to be an all-inclusive list. Differential Dizziness: Benign paroxysmal positional Vertigo, Menieres disease, otitis media, acoustic neuroma, vertebrobasilar insufficiency, cerebellar stroke, encephalitis, hypovolemic, arrhythmia, coronary artery syndrome, anemia, this is not meant to be an all-inclusive list - Consultations Consultation #1: Spoke with admitting physicians who agree to admit this patient EKG Findings - EKG Comments: EKG Findings:: EKG is paced 83 QRS 154 QTC 439 - EKG Results: EKG: interpreted by ERMD Medical Decision Making - Medical Decision Making 87 female to the emergency department for evaluation of weakness lightheadedness dizziness fever and dehydration, given antibiotics and significant IV hydration here in the ER and patient set to be discharged home this is when This patient was being made for discharge, she was found to be unresponsive with significant respiratory distress. Chest x-ray had increasing pulmonary edema ABG shows increased pCO2 hypercapnic respiratory failure on BiPAP, patient is a DO NOT RESUSCITATE. Patient be admitted for current continue supportive and respiratory care - Lab Data Result diagrams: 10/14/22 07:55 10/13/22 07:36 Lab Results 10/12/22 10/12/22 10/12/22 Range/Units 15:47 15:47 15:47 WBC (3.8-10.6) k/uL RBC (3.80-5.40) m/uL Hgb (11.4-16.0) gm/dL Hct (34.0-46.0) % MCV (80.0-100.0) fL MCH (25.0-35.0) pg MCHC (31.0-37.0) g/dL RDW (11.5-15.5) % Plt Count (150-450) k/uL MPV Neutrophils % % Lymphocytes % % Monocytes % % Eosinophils % % Basophils % % Neutrophils # (1.3-7.7) k/uL Lymphocytes # (1.0-4.8) k/uL Monocytes # (0-1.0) k/uL Eosinophils # (0-0.7) k/uL Basophils # (0-0.2) k/uL PT (9.0-12.0) sec INR (<1.2) APTT (22.0-30.0) sec Sodium 135 L (137-145) mmol/L Potassium 3.7 (3.5-5.1) mmol/L Chloride 96 L (98-107) mmol/L Carbon Dioxide 31 H (22-30) mmol/L Anion Gap 8 mmol/L BUN 17 (7-17) mg/dL Creatinine 0.70 (0.52-1.04) mg/dL Est GFR (CKD-EPI)AfAm 89 (>60 ml/min/1.73 sqM) Est GFR (CKD-EPI)NonAf 77 (>60 ml/min/1.73 sqM) Glucose 109 H (74-99) mg/dL POC Glucose (mg/dL) (70-110) mg/dL POC Glu [employer] ID Plasma Lactic Acid Kp 1.0 (0.7-2.0) mmol/L Calcium 8.4 (8.4-10.2) mg/dL Phosphorus 3.4 (2.5-4.5) mg/dL Magnesium 1.7 (1.6-2.3) mg/dL Total Bilirubin 0.6 (0.2-1.3) mg/dL AST 25 (14-36) U/L ALT 20 (4-34) U/L Alkaline Phosphatase 85 (38-126) U/L Troponin I 0.050 H* (0.000-0.034) ng/mL NT-Pro-B Natriuret Pep pg/mL Total Protein 6.2 L (6.3-8.2) g/dL Albumin 3.6 (3.5-5.0) g/dL Urine Color Urine Appearance (Clear) Urine pH (5.0-8.0) Ur Specific Heath (1.001-1.035) Urine Protein (Negative) Urine Glucose (UA) (Negative) Urine Ketones (Negative) Urine Blood (Negative) Urine Nitrite (Negative) Urine Bilirubin (Negative) Urine Urobilinogen (<2.0) mg/dL Ur Leukocyte Esterase (Negative) Urine RBC (0-5) /hpf Urine WBC (0-5) /hpf Ur Squamous Epith Cells (0-4) /hpf Amorphous Sediment (None) /hpf Urine Bacteria (None) /hpf Hyaline Casts (0-2) /lpf Urine Mucus (None) /hpf Influenza Type A (PCR) (Not Detectd) Influenza Type B (PCR) (Not Detectd) RSV (PCR) (Not Detectd) SARS-CoV-2 (PCR) (Not Detectd) 10/12/22 10/12/22 10/12/22 Range/Units 15:47 15:47 15:47 WBC (3.8-10.6) k/uL RBC (3.80-5.40) m/uL Hgb (11.4-16.0) gm/dL Hct (34.0-46.0) % MCV (80.0-100.0) fL MCH (25.0-35.0) pg MCHC (31.0-37.0) g/dL RDW (11.5-15.5) % Plt Count (150-450) k/uL MPV Neutrophils % % Lymphocytes % % Monocytes % % Eosinophils % % Basophils % % Neutrophils # (1.3-7.7) k/uL Lymphocytes # (1.0-4.8) k/uL Monocytes # (0-1.0) k/uL Eosinophils # (0-0.7) k/uL Basophils # (0-0.2) k/uL PT 10.2 (9.0-12.0) sec INR 1.0 (<1.2) APTT 21.0 L (22.0-30.0) sec Sodium (137-145) mmol/L Potassium (3.5-5.1) mmol/L Chloride (98-107) mmol/L Carbon Dioxide (22-30) mmol/L Anion Gap mmol/L BUN (7-17) mg/dL Creatinine (0.52-1.04) mg/dL Est GFR (CKD-EPI)AfAm (>60 ml/min/1.73 sqM) Est GFR (CKD-EPI)NonAf (>60 ml/min/1.73 sqM) Glucose (74-99) mg/dL POC Glucose (mg/dL) (70-110) mg/dL POC Glu [employer] ID Plasma Lactic Acid Kp (0.7-2.0) mmol/L Calcium (8.4-10.2) mg/dL Phosphorus (2.5-4.5) mg/dL Magnesium (1.6-2.3) mg/dL Total Bilirubin (0.2-1.3) mg/dL AST (14-36) U/L ALT (4-34) U/L Alkaline Phosphatase (38-126) U/L Troponin I (0.000-0.034) ng/mL NT-Pro-B Natriuret Pep 3430 pg/mL Total Protein (6.3-8.2) g/dL Albumin (3.5-5.0) g/dL Urine Color Urine Appearance (Clear) Urine pH (5.0-8.0) Ur Specific Heath (1.001-1.035) Urine Protein (Negative) Urine Glucose (UA) (Negative) Urine Ketones (Negative) Urine Blood (Negative) Urine Nitrite (Negative) Urine Bilirubin (Negative) Urine Urobilinogen (<2.0) mg/dL Ur Leukocyte Esterase (Negative) Urine RBC (0-5) /hpf Urine WBC (0-5) /hpf Ur Squamous Epith Cells (0-4) /hpf Amorphous Sediment (None) /hpf Urine Bacteria (None) /hpf Hyaline Casts (0-2) /lpf Urine Mucus (None) /hpf Influenza Type A (PCR) Not Detected (Not Detectd) Influenza Type B (PCR) Not Detected (Not Detectd) RSV (PCR) Not Detected (Not Detectd) SARS-CoV-2 (PCR) Not Detected (Not Detectd) 10/12/22 10/12/22 10/12/22 Range/Units 15:48 20:16 21:30 WBC 4.3 (3.8-10.6) k/uL RBC 4.59 (3.80-5.40) m/uL Hgb 13.6 (11.4-16.0) gm/dL Hct 43.1 (34.0-46.0) % MCV 93.8 (80.0-100.0) fL MCH 29.6 (25.0-35.0) pg MCHC 31.5 (31.0-37.0) g/dL RDW 14.7 (11.5-15.5) % Plt Count 135 L (150-450) k/uL MPV 9.0 Neutrophils % 74 % Lymphocytes % 16 % Monocytes % 8 % Eosinophils % 0 % Basophils % 0 % Neutrophils # 3.2 (1.3-7.7) k/uL Lymphocytes # 0.7 L (1.0-4.8) k/uL Monocytes # 0.3 (0-1.0) k/uL Eosinophils # 0.0 (0-0.7) k/uL Basophils # 0.0 (0-0.2) k/uL PT (9.0-12.0) sec INR (<1.2) APTT (22.0-30.0) sec Sodium (137-145) mmol/L Potassium (3.5-5.1) mmol/L Chloride (98-107) mmol/L Carbon Dioxide (22-30) mmol/L Anion Gap mmol/L BUN (7-17) mg/dL Creatinine (0.52-1.04) mg/dL Est GFR (CKD-EPI)AfAm (>60 ml/min/1.73 sqM) Est GFR (CKD-EPI)NonAf (>60 ml/min/1.73 sqM) Glucose (74-99) mg/dL POC Glucose (mg/dL) 146 H (70-110) mg/dL POC Glu [employer] ID Marlon Belcher Plasma Lactic Acid Kp (0.7-2.0) mmol/L Calcium (8.4-10.2) mg/dL Phosphorus (2.5-4.5) mg/dL Magnesium (1.6-2.3) mg/dL Total Bilirubin (0.2-1.3) mg/dL AST (14-36) U/L ALT (4-34) U/L Alkaline Phosphatase (38-126) U/L Troponin I (0.000-0.034) ng/mL NT-Pro-B Natriuret Pep pg/mL Total Protein (6.3-8.2) g/dL Albumin (3.5-5.0) g/dL Urine Color Yellow Urine Appearance Clear (Clear) Urine pH 5.5 (5.0-8.0) Ur Specific Heath 1.013 (1.001-1.035) Urine Protein 2+ H (Negative) Urine Glucose (UA) Negative (Negative) Urine Ketones Negative (Negative) Urine Blood Negative (Negative) Urine Nitrite Negative (Negative) Urine Bilirubin Negative (Negative) Urine Urobilinogen <2.0 (<2.0) mg/dL Ur Leukocyte Esterase Negative (Negative) Urine RBC 4 (0-5) /hpf Urine WBC <1 (0-5) /hpf Ur Squamous Epith Cells <1 (0-4) /hpf Amorphous Sediment Rare H (None) /hpf Urine Bacteria Rare H (None) /hpf Hyaline Casts 15 H (0-2) /lpf Urine Mucus Rare H (None) /hpf Influenza Type A (PCR) (Not Detectd) Influenza Type B (PCR) (Not Detectd) RSV (PCR) (Not Detectd) SARS-CoV-2 (PCR) (Not Detectd) - EKG Data -: EKG Interpreted by Me (EKG shows sinus 83 MS QRS 159 QTC 404) - Radiology Data Radiology results: report reviewed (Chest x-rays negative for acute disease, mild CHF, repeat chest x-ray shows increasing CHF with pneumonia), image reviewed Critical Care Time Critical Care Time: Yes Total Critical Care Time: 31 Disposition Clinical Impression: Dehydration, Weakness, Fever, UTI (urinary tract infection), Pneumonia, Acute exacerbation of chronic obstructive pulmonary disease, CHF (congestive heart failure), Hypercapnic respiratory failure, Hypoxia Disposition: ADMITTED IP TO THIS HOSP Condition: Serious Is patient prescribed a controlled substance at d/c from ED?: No Time of Disposition: 19:15
--- NOTE | 2022-10-12 16:06 | XR ---
EXAMINATION TYPE: XR chest 2V DATE OF EXAM: 10/12/2022 3:59 PM COMPARISON: Chest radiographs from 10/16/2015 TECHNIQUE: XR chest 2V Frontal and lateral views of the chest. CLINICAL INDICATION:Female, 87 years old with history of Weakness; FINDINGS: Lungs/Pleura: There is flattening of the diaphragm with increased lucency of the lungs. No evidence o f pneumothorax, pleural effusion or focal consolidation. Pulmonary vascularity: Mild pulmonary vascular congestion. Heart/mediastinum: Cardiomediastinal silhouette is enlarged and stable. Atherosclerotic calcificatio ns are seen in the aorta. A loop recorder projects over the left thorax over the heart. Musculoskeletal: No acute osseous pathology. IMPRESSION: 1. Cardiomegaly and mild pulmonary vascular congestion. Correlate with BNP for congestive heart fail ure. 2. COPD changes.
[2022-10-12 16:15] LABS: Basophils % (A) 0 %; Eosinophils % (A) 0 %; HCT 43.1 % (34.0-46.0); HGB 13.6 gm/dL (11.4-16.0); Lymphocytes # (A) 0.7 k/uL (1.0-4.8); Lymphocytes % (A) 16 %; MCH 29.6 pg (25.0-35.0); MCHC 31.5 g/dL (31.0-37.0); MCV 93.8 fL (80.0-100.0); Monocytes # (A) 0.3 k/uL (0-1.0); Monocytes % (A) 8 %; Neutrophils # (A) 3.2 k/uL (1.3-7.7); Neutrophils % (A) 74 %; Platelet Count 135 k/uL (150-450); RBC 4.59 m/uL (3.80-5.40); RDW 14.7 % (11.5-15.5); WBC 4.3 k/uL (3.8-10.6)
[2022-10-12 16:21] LABS: ALT 20 U/L (4-34); AST 25 U/L (14-36); African American GFR (CKD) 89 (>60 ml/min/1.73 sqM); Albumin 3.6 g/dL (3.5-5.0); Alkaline Phosphatase 85 U/L (38-126); Anion Gap 8 mmol/L; Blood Urea Nitrogen 17 mg/dL (7-17); Calcium 8.4 mg/dL (8.4-10.2); Carbon Dioxide 31 mmol/L (22-30); Chloride 96 mmol/L (98-107); Glucose 109 mg/dL (74-99); Magnesium 1.7 mg/dL (1.6-2.3); Non-African American GFR(CKD) 77 (>60 ml/min/1.73 sqM); Phosphorus 3.4 mg/dL (2.5-4.5); Potassium 3.7 mmol/L (3.5-5.1); Sodium 135 mmol/L (137-145); Total Bilirubin 0.6 mg/dL (0.2-1.3); Total Protein 6.2 g/dL (6.3-8.2)
[2022-10-12 16:32] LABS: Prothrombin Time 10.2 sec (9.0-12.0)
[2022-10-12] MEDS ORDERED: IBUPROFEN 600 MG TAB PO STA (18:07)
[2022-10-12] MEDS ORDERED: ACETAMINOPHEN TAB 325 MG TAB PO STA (18:07)
[2022-10-12] MEDS ORDERED: ACETAMINOPHEN TAB 500 MG TAB PO STA (18:10)
[2022-10-12] MEDS ORDERED: IPRATROPIUM-ALBUTEROL 3 ML NEB INHALATION STA (18:58)
[2022-10-12] MEDS ORDERED: AMOXIC-POT CLAV 875-125MG 1 EACH TAB PO STA (19:09)
[2022-10-12] MEDS ORDERED: cefTRIAXone IN SWFI 1,000 MG/10 ML SYRINGE IVP STA (19:57)
[2022-10-12 20:19] LABS: Glucose,Whole Blood 146 mg/dL (70-110)
--- NOTE | 2022-10-12 20:46 | XR ---
EXAMINATION TYPE: XR chest 1V portable DATE OF EXAM: 10/12/2022 8:37 PM COMPARISON: Chest radiographs from same day TECHNIQUE: XR chest 1V portable Frontal view of the chest. CLINICAL INDICATION:Female, 87 years old with history of dyspnea; FINDINGS: Lungs/Pleura: Right lower lobe airspace opacities are more asymmetric on this exam. There is no evide nce of pleural effusion, focal consolidation, or pneumothorax. Pulmonary vascularity: Pulmonary vascular congestion. Heart/mediastinum: Cardiomediastinal silhouette is enlarged and stable. The aorta appears tortuous, a finding usually associated with either atherosclerosis or systemic hypertension. Musculoskeletal: No acute osseous pathology. Other findings: None IMPRESSION: Slightly more asymmetric on this exam right lower lung airspace opacities correlate for pneumonia sup erimposed congestive heart failure not entirely excluded.
[2022-10-12] MEDS ORDERED: NALOXONE 0.4 MG/ML 1 ML VIAL IV PRN (21:13)
[2022-10-12] MEDS ORDERED: ONDANSETRON 4 MG/2 ML VIAL IVP PRN (21:32)
[2022-10-12] MEDS ORDERED: MORPHINE SULFATE 4 MG/ML SYRINGE IV PRN (21:32)
[2022-10-12] MEDS ORDERED: ACETAMINOPHEN IV (For NPO) 1,000 MG in EMPTY BAG 1 BAG IVPB PRN (21:35)
[2022-10-12] MEDS ORDERED: IBUPROFEN IV 400 MG in SODIUM CHLORIDE 0.9% 100 ML IV PRN (21:35)
[2022-10-12] MEDS ORDERED: AZITHROMYCIN 500 MG in SODIUM CHLORIDE 0.9% 250 ML IVPB STA (21:35)
[2022-10-12] MEDS: SODIUM CHLORIDE 0.9% 1,000 ML IV SCH (21:46)
--- NOTE | 2022-10-12 22:34 | CT ---
EXAMINATION TYPE: CT brain wo con CT DLP: 1129.4 mGycm, Automated exposure control for dose reduction was used. DATE OF EXAM: 10/12/2022 10:09 PM COMPARISON: 08/05/2020. CLINICAL INDICATION:Female, 87 years old with history of ams, TECHNIQUE: Brain: Axial CT images of the brain were obtained with coronal and sagittal reformats created and rev iewed. Contrast used: None. Oral contrast used: None. FINDINGS: Brain: Extra-axial spaces: No abnormal extra-axial fluid collections. Ventricular system: Dilatation in proportion to cerebral atrophy. Cerebral parenchyma: Cerebral atrophy. No acute intraparenchymal hemorrhage or mass effect. The corea -white junction is well differentiated. Scattered hypoattenuating areas are seen within the white mat ter. Choroidal fissure cyst on the right. Cerebellum: Unremarkable. Mass effect: No evidence of midline shift. Intracranial vasculature: Atherosclerotic calcifications of the intracranial vessels. Soft tissues: Normal. Calvarium/osseous structures: No depressed skull fracture. Paranasal sinuses and mastoid air cells: Mild scattered paranasal sinus disease. Visualized orbits: Orbital contents are intact. IMPRESSION: 1. No acute intracranial process. 2. Nonspecific white matter changes, likely secondary to chronic small vessel ischemic disease. ,
[2022-10-12 22:38] LABS: ABG Base Excess 5.1 mmol/L; ABG HCO3 33 mmol/L (21-25); ABG PH 7.24 (7.35-7.45); ABG PO2 91 mmHg (83-108); ABG TCO2 35 mmol/L (19-24); Allen Test Performed? Yes
[2022-10-12 22:44] LABS: Amorphous Sediment,Urine Rare /hpf; Appearance,Urine Clear (Clear); Bacteria,Urine Rare /hpf; Bilirubin,Urine Negative (Negative); Blood,Urine Negative (Negative); Color,Urine Yellow; Glucose,Urine (UA) Negative (Negative); Hyaline Casts,Urine 15 /lpf (0-2); Ketones,Urine Negative (Negative); Leukocyte Esterase,Urine Negative (Negative); Mucus,Urine Rare /hpf; Nitrite,Urine Negative (Negative); PH, Urine 5.5 (5.0-8.0); Protein,Urine 2+ (Negative); RBC,Urine 4 /hpf (0-5); Specific Gravity,Urine 1.013 (1.001-1.035); Squamous Epithelial Cell,Urine <1 /hpf (0-4); Urobilinogen,Urine <2.0 mg/dL (<2.0); WBC,Urine <1 /hpf (0-5)
[2022-10-12 22:47] LABS: ABG Oxygen Saturation 98.5 % (94-97); ABG PCO2 77 mmHg (35-45)
[2022-10-13 06:06] LABS: Glucose,Whole Blood 80 mg/dL (70-110)
[2022-10-13 07:56] LABS: Basophils % (A) 0 %; Eosinophils # (A) 0.1 k/uL (0-0.7); Eosinophils % (A) 1 %; HCT 46.3 % (34.0-46.0); HGB 14.1 gm/dL (11.4-16.0); Hypochromasia Moderate; Lymphocytes # (A) 0.6 k/uL (1.0-4.8); Lymphocytes % (A) 10 %; MCH 29.4 pg (25.0-35.0); MCHC 30.4 g/dL (31.0-37.0); MCV 96.7 fL (80.0-100.0); Mean Platelet Volume 9.6; Monocytes # (A) 0.4 k/uL (0-1.0); Monocytes % (A) 7 %; Neutrophils # (A) 4.5 k/uL (1.3-7.7); Neutrophils % (A) 80 %; Platelet Count 125 k/uL (150-450); RBC 4.79 m/uL (3.80-5.40); RDW 14.4 % (11.5-15.5); WBC 5.7 k/uL (3.8-10.6)
[2022-10-13 08:52] LABS: ALT 49 U/L (4-34); AST 57 U/L (14-36); African American GFR (CKD) 84 (>60 ml/min/1.73 sqM); Albumin 3.2 g/dL (3.5-5.0); Alkaline Phosphatase 73 U/L (38-126); Anion Gap 8 mmol/L; Blood Urea Nitrogen 22 mg/dL (7-17); Calcium 7.8 mg/dL (8.4-10.2); Carbon Dioxide 29 mmol/L (22-30); Chloride 103 mmol/L (98-107); Glucose 84 mg/dL (74-99); Magnesium 1.9 mg/dL (1.6-2.3); Non-African American GFR(CKD) 73 (>60 ml/min/1.73 sqM); Phosphorus 5.2 mg/dL (2.5-4.5); Sodium 140 mmol/L (137-145); Total Bilirubin 0.5 mg/dL (0.2-1.3); Total Protein 5.6 g/dL (6.3-8.2)
--- NOTE | 2022-10-13 09:03 | P.CRDCN ---
History of Present Illness Consult date: 10/13/22 Chief complaint: SOB History of present illness: The patient is an 87-year-old female patient with a past medical history significant for permanent pacemaker as well as hypertension and dyslipidemia who was brought into the hospital with increasing shortness of breath. The patient is extremely poor historian. She has been experiencing increasing in the shortness of breath for the last 3-4 days associated with fever. She also developed bilateral lower extremity edema. No symptoms of any chest pain or chest discomfort or dizziness or lightheadedness or any feeling of heart racing or fluttering or any presyncope or syncope. She underwent further workup including an EKG showed ventricular paced rhythm and also she underwent a chest x-ray showed evidence consistent with volume overload/pulmonary vascular congestions. Her NT proBNP came in to be around 4000. The patient is hypoxic without oxygen and currently she is on BiPAP. She was diagnosed with pneumonia and she was started on antibiotic with azithromycin and ceftriaxone. The BMP showed normal creatinine and hemoglobin appeared to be within normal limits. The patient was seen by our service plaque into was an 18 where she underwent an echo that revealed normal biventricular dimension and systolic function with no significant valvular abnormalities. The troponin came in to be slightly elevated. Examination is remarkable for severe bilateral wheezing and rhonchi. She has mild bilateral lower extremity edema. The heart sounds are distant and in the light of extensive wheezing and rhonchi I was able to detect any murmur. Assessment Acute hypoxic respiratory failure Pneumonia Heart failure of unknown etiology Permanent pacemaker Plan The patient is on antibiotic for pneumonia Consider adding small dose of IV diuretics Continue monitoring her kidney function and electrolytes Obtain an echocardiogram was Doppler Follow-up with the patient Past Medical History Past Medical History: Asthma, Cancer, Chest Pain / Angina, COPD, CVA/TIA, Diabetes Mellitus, GERD/Reflux, Hyperlipidemia, Hypertension, Osteoarthritis (OA ), Pneumonia, Seizure Disorder Additional Past Medical History / Comment(s): TREMORS, HX OF PNEUMONIA SEVERAL TIMES, HX OF UTERINE AND SKIN CANCER, ANEMIA, "NON-FUNCTIONING GALL BLADDER", HX OF KIDNEY STONES,. occ loss of CONTROL OF HER BOWELS., "TEMPORAL ARTERITIS" excema, INSOMNIA,HIATAL HERNIA, last seizure about 10 yrs ago, told TIA 10-12 yrs ago, diff swallowing and wt loss of about 2 lbs a week, diverticulitis, hx prednisone induced diabetes, cervical dystonia, Neck/back fx History of Any Multi-Drug Resistant Organisms: None Reported Past Surgical History: Heart Catheterization, Hysterectomy, Pacemaker Additional Past Surgical History / Comment(s): VARICOSE VEINS REMOVED, HEART CATH X2. CATARACTS, SKIN CA REMOVED, pain clinic procedure Past Anesthesia/Blood Transfusion Reactions: Previous Problems w/ Anesthesia, Motion Sickness Additional Past Anesthesia/Blood Transfusion Reaction / Comment(s): SEVERE REACTION TO FENTANYL AND DEMEROL. Type of Cardiac Device: Permanent Pacemaker Device Placement Date:: june 2022 Past Psychological History: No Psychological Hx Reported Smoking Status: Never smoker Past Alcohol Use History: None Reported Additional Past Alcohol Use History / Comment(s): STARTED SMOKING AT AGE 10 - QUIT AT AGE 56, SMOKED 1 PPD. 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 Past Drug Use History: None Reported - Past Family History Father Additional Family Medical History / Comment(s): AT AGE 29-NOT SURE OF CAUSE Mother Family Medical History: Cancer Additional Family Medical History / Comment(s): . Brother(s) Family Medical History: Cancer Additional Family Medical History / Comment(s): . Daughter(s) Family Medical History: Cancer Additional Family Medical History / Comment(s): COLON CANCER Medications and Allergies Home Medications Medication Instructions Recorded Confirmed Type Albuterol Sulfate [Proair Hfa] 2 puff INHALATION RT-Q4H PRN 12/26/14 10/12/22 History Atorvastatin [Lipitor] 10 mg PO HS 12/26/14 10/12/22 History Ipratropium Nebulized [Atrovent 0.5 mg INHALATION RT-TID 12/26/14 10/12/22 History Nebulized 0.2 MG/ML] amLODIPine [Norvasc] 5 mg PO DAILY 12/26/14 10/12/22 History Montelukast [Singulair] 10 mg PO HS 02/13/15 10/12/22 History Pregabalin [Lyrica] 50 mg PO DAILY 02/11/20 10/12/22 History Pregabalin [Lyrica] 75 mg PO HS 02/11/20 10/12/22 History Dba-Eddy-Wnhtt Acid 1 cap PO DAILY 02/11/20 10/12/22 History [-U Capsule (formulary)] Eszopiclone [Lunesta] 2 mg PO HS 10/12/22 10/12/22 History Furosemide [Lasix] 20 mg PO DAILY 10/12/22 10/12/22 History Tiotropium 18 Mcg/Puff [Spiriva] 1 cap INHALATION RT-DAILY 10/12/22 10/12/22 History Allergies Allergy/AdvReac Type Severity Reaction Status Date / Time codeine Allergy Dyspnea/hiv Verified 10/12/22 22:00 es fentanyl Allergy Anaphylaxis Verified 10/12/22 22:00 Iodinated Contrast Media Allergy Anaphylaxis Verified 10/12/22 22:00 [Iodinated Contrast Media - IV Dye] meperidine HCl [From Demerol] Allergy Anaphylaxis Verified 10/12/22 22:00 omeprazole Allergy Swelling/Ra Verified 10/12/22 22:00 sh adhesive tape AdvReac THIN AND Verified 10/12/22 22:00 SENSITIVE SKIN/RASH Physical Exam Vitals: Vital Signs Temp Pulse Pulse Resp BP BP Pulse Ox 10/13/22 04:17 10/13/22 04:00 97 F L 88 20 115/71 100 10/13/22 02:00 87 17 10/13/22 00:27 10/12/22 23:30 87 17 10/12/22 23:10 97.3 F L 87 17 112/56 100 10/12/22 23:05 98.0 F 90 16 92/50 100 10/12/22 21:42 98.9 F 93 15 139/56 98 10/12/22 20:50 10/12/22 20:35 10/12/22 20:25 78 10/12/22 20:21 82 8 L 136/58 91 L 10/12/22 19:45 88 10/12/22 19:01 98.8 F 78 18 138/80 98 10/12/22 18:18 99.0 F 88 20 143/67 98 10/12/22 15:25 102.1 F H 87 20 145/58 95 FiO2 10/13/22 04:17 40 10/13/22 04:00 40 10/13/22 02:00 10/13/22 00:27 40 10/12/22 23:30 10/12/22 23:10 40 10/12/22 23:05 10/12/22 21:42 10/12/22 20:50 40 10/12/22 20:35 40 10/12/22 20:25 10/12/22 20:21 10/12/22 19:45 10/12/22 19:01 10/12/22 18:18 10/12/22 15:25 Intake and Output 10/12/22 10/13/22 10/13/22 22:59 06:59 14:59 Output Total 350 Balance -350 Output: Urine 350 Other: Voiding Method Indwelling Catheter Weight 49.895 kg 53 kg Results 10/13/22 07:36 10/13/22 07:36 Cardiac Enzymes 10/12/22 10/12/22 10/13/22 Range/Units 15:47 15:47 07:36 AST 25 57 H (14-36) U/L Troponin I 0.050 H* (0.000-0.034) ng/mL Coagulation 10/12/22 Range/Units 15:47 PT 10.2 (9.0-12.0) sec APTT 21.0 L (22.0-30.0) sec CBC 10/12/22 10/13/22 Range/Units 15:48 07:36 WBC 4.3 5.7 (3.8-10.6) k/uL RBC 4.59 4.79 (3.80-5.40) m/uL Hgb 13.6 14.1 (11.4-16.0) gm/dL Hct 43.1 46.3 H (34.0-46.0) % Plt Count 135 L 125 L (150-450) k/uL Comprehensive Metabolic Panel 10/12/22 10/13/22 Range/Units 15:47 07:36 Sodium 135 L 140 (137-145) mmol/L Potassium 3.7 4.0 (3.5-5.1) mmol/L Chloride 96 L 103 (98-107) mmol/L Carbon Dioxide 31 H 29 (22-30) mmol/L BUN 17 22 H (7-17) mg/dL Creatinine 0.70 0.74 (0.52-1.04) mg/dL Glucose 109 H 84 (74-99) mg/dL Calcium 8.4 7.8 L (8.4-10.2) mg/dL AST 25 57 H (14-36) U/L ALT 20 49 H (4-34) U/L Alkaline Phosphatase 85 73 (38-126) U/L Total Protein 6.2 L 5.6 L (6.3-8.2) g/dL Albumin 3.6 3.2 L (3.5-5.0) g/dL Current Medications Generic Name Dose Route Start Last Admin Trade Name Freq PRN Reason Stop Dose Admin Albuterol Sulfate 2.5 mg 10/12/22 21:37 Albuterol Nebulized 2.5 Mg/3 Ml INHALATION RT-QID PRN Shortness Of Breath Or Wheezing Sodium Chloride 1,000 mls @ 20 mls/hr 10/12/22 21:45 10/12/22 21:46 Saline 0.9% IV 20 mls/hr .Q24H TROY Administration Acetaminophen 1,000 mg/ IV 100 mls @ 400 mls/hr 10/12/22 21:35 Solution IVPB 10/13/22 18:01 Q6HR PRN Fever Azithromycin 500 mg/ Sodium 250 mls @ 250 mls/hr 10/13/22 23:00 Chloride IVPB 10/15/22 23:59 DAILY@2300 [facility] Protocol Ibuprofen 400 mg/ Sodium 104 mls @ 200 mls/hr 10/12/22 21:35 Chloride IV Q6HR PRN Fever Morphine Sulfate 4 mg 10/12/22 21:32 Morphine Sulfate 4 Mg/Ml Syringe IV Q4HR PRN Severe Pain (Scale 7 to 10) Naloxone HCl 0.2 mg 10/12/22 21:13 Naloxone 0.4 Mg/Ml 1 Ml Vial IV Q2M PRN Opioid Reversal Ondansetron HCl 4 mg 10/12/22 21:32 Ondansetron 4 Mg/2 Ml Vial IVP Q8HR PRN Nausea And Vomiting Pantoprazole Sodium 40 mg 10/13/22 09:00 Pantoprazole 40 Mg/10 Ml Vial IV DAILY TROY Intake and Output 10/12/22 10/13/22 10/13/22 22:59 06:59 14:59 Output Total 350 Balance -350 Output: Urine 350 Other: Voiding Method Indwelling Catheter Weight 49.895 kg 53 kg 10/13/22 07:36 10/13/22 07:36
[2022-10-13] MEDS: PANTOPRAZOLE 40 MG/10 ML VIAL IV SCH (09:21)
[2022-10-13] MEDS: SODIUM CHLORIDE 0.9% 1,000 ML IV SCH (09:25)
[2022-10-13] MEDS: ALBUTEROL NEBULIZED 2.5 MG/3 ML INHALATION PRN ×2 (09:29→21:35)
[2022-10-13] MEDS: FUROSEMIDE 10 MG/ML 2 ML VIAL IV SCH ×2 (10:20→19:53)
--- NOTE | 2022-10-13 11:36 | P.CNPUL ---
History of Present Illness Consult date: 10/13/22 Requesting physician: Sakshi Pride Reason for consult: dyspnea, cough, COPD, hypoxemia, pneumonia, abnormal CXR/CT Chief complaint: Shortness of breath. History of present illness: Pulmonary consult dated 10/13/2022. 87-year-old female, poor historian, who was seen in the emergency department on October 12, apparently brought in by EMS, complaining of dizziness. The patient is currently on BiPAP, with settings of 10/5 and 40%. She's not receiving any IV fluids. The patient is not really able to give much in the way of history. According to the ER sepideh, she wasn't feeling well, and apparently planed of dizziness, and feeling hot and cold. She apparently denied any chest pain or chest discomfort. There is no mention of shortness of breath in the ER sepideh. Her chest x-ray was consistent with possible fluid overload versus pneumonia. Her N-terminal proBNP was elevated. According to the ER sepideh, this patient has a history of angina, COPD/asthma, CVA, diabetes, GERD, hyperlipidemia, hypertension, and seizure disorder. She also has history of uterine and skin cancer, as well as temporal arteritis. The patient apparently is a lifelong non-smoker. White count 5.7, hemoglobin 14.1, hematocrit 46.3, and platelet count 125,000. Blood gases show pO2 of 91, pCO2 of 77, and pH is 7.24. This is on 40%. It was done yesterday. Sodium 140, potassium 4, chlorides 103, CO2 29, BUN 22, and creatinine 0.74. Albumin is 3.2. AST is 57 with an ALT of 49. Urine shows rare bacteria but nitrite and leukocyte esterase were both negative, and there were essentially no WBCs in the urine. Review of Systems REVIEW OF SYSTEMS: CONSTITUTIONAL: [Negative.] NEUROLOGIC: Dizziness/weakness. HEENT: [ Negative.] CARDIAC: [Negative.] PULMONARY: Possible shortness of breath. GI: [Negative.] : Possible dysuria. RHEUMATOLOGIC: [ Negative.] IMMUNOLOGIC: [ Negative.] ENDOCRINE: [Negative. ] DERMATOLOGIC: [Negative.] Past Medical History Past Medical History: Asthma, Cancer, Chest Pain / Angina, COPD, CVA/TIA, D iabetes Mellitus, GERD/Reflux, Hyperlipidemia, Hypertension, Osteoarthritis (OA), Pneumonia, Seizure Disorder Additional Past Medical History / Comment(s): TREMORS, HX OF PNEUMONIA SEVERAL TIMES, HX OF UTERINE AND SKIN CANCER, ANEMIA, "NON-FUNCTIONING GALL BLADDER", HX OF KIDNEY STONES,. occ loss of CONTROL OF HER BOWELS., "TEMPORAL ARTERITIS" excema, INSOMNIA,HIATAL HERNIA, last seizure about 10 yrs ago, told TIA 10-12 yrs ago, diff swallowing and wt loss of about 2 lbs a week, diverticulitis, hx prednisone induced diabetes, cervical dystonia, Neck/back fx History of Any Multi-Drug Resistant Organisms: None Reported Past Surgical History: Heart Catheterization, Hysterectomy, Pacemaker Additional Past Surgical History / Comment(s): VARICOSE VEINS REMOVED, HEART CATH X2. CATARACTS, SKIN CA REMOVED, pain clinic procedure Past Anesthesia/Blood Transfusion Reactions: Previous Problems w/ Anesthesia, Motion Sickness Additional Past Anesthesia/Blood Transfusion Reaction / Comment(s): SEVERE REACTION TO FENTANYL AND DEMEROL. Type of Cardiac Device: Permanent Pacemaker Device Placement Date:: june 2022 Past Psychological History: No Psychological Hx Reported Smoking Status: Never smoker Past Alcohol Use History: None Reported Additional Past Alcohol Use History / Comment(s): STARTED SMOKING AT AGE 10 - QUIT AT AGE 56, SMOKED 1 PPD. 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 Past Drug Use History: None Reported - Past Family History Father Additional Family Medical History / Comment(s): AT AGE 29-NOT SURE OF CAUSE Mother Family Medical History: Cancer Additional Family Medical History / Comment(s): . Brother(s) Family Medical History: Cancer Additional Family Medical History / Comment(s): . Daughter(s) Family Medical History: Cancer Additional Family Medical History / Comment(s): COLON CANCER Medications and Allergies Home Medications Medication Instructions Recorded Confirmed Type Albuterol Sulfate [Proair Hfa] 2 puff INHALATION RT-Q4H PRN 12/26/14 10/12/22 History Atorvastatin [Lipitor] 10 mg PO HS 12/26/14 10/12/22 History Ipratropium Nebulized [Atrovent 0.5 mg INHALATION RT-TID 12/26/14 10/12/22 History Nebulized 0.2 MG/ML] amLODIPine [Norvasc] 5 mg PO DAILY 12/26/14 10/12/22 History Montelukast [Singulair] 10 mg PO HS 02/13/15 10/12/22 History Pregabalin [Lyrica] 50 mg PO DAILY 02/11/20 10/12/22 History Pregabalin [Lyrica] 75 mg PO HS 02/11/20 10/12/22 History Jlm-Xryx-Rhuws Acid 1 cap PO DAILY 02/11/20 10/12/22 History [-U Capsule (formulary)] Eszopiclone [Lunesta] 2 mg PO HS 10/12/22 10/12/22 History Furosemide [Lasix] 20 mg PO DAILY 10/12/22 10/12/22 History Tiotropium 18 Mcg/Puff [Spiriva] 1 cap INHALATION RT-DAILY 10/12/22 10/12/22 History Allergies Allergy/AdvReac Type Severity Reaction Status Date / Time codeine Allergy Dyspnea/hiv Verified 10/12/22 22:00 es fentanyl Allergy Anaphylaxis Verified 10/12/22 22:00 Iodinated Contrast Media Allergy Anaphylaxis Verified 10/12/22 22:00 [Iodinated Contrast Media - IV Dye] meperidine HCl [From Demerol] Allergy Anaphylaxis Verified 10/12/22 22:00 omeprazole Allergy Swelling/Ra Verified 10/12/22 22:00 sh adhesive tape AdvReac THIN AND Verified 10/12/22 22:00 SENSITIVE SKIN/RASH Physical Exam Osteopathic Statement: *. No significant issues noted on an osteopathic structural exam other than those noted in the History and Physical/Consult. Vitals: Vital Signs Temp Pulse Pulse Resp BP BP Pulse Ox 10/13/22 09:40 80 10/13/22 09:32 76 10/13/22 09:26 10/13/22 09:25 97.8 F 92 22 146/62 100 10/13/22 04:17 10/13/22 04:00 97 F L 88 20 115/71 100 10/13/22 02:00 87 17 10/13/22 00:27 10/12/22 23:30 87 17 10/12/22 23:10 97.3 F L 87 17 112/56 100 10/12/22 23:05 98.0 F 90 16 92/50 100 10/12/22 21:42 98.9 F 93 15 139/56 98 10/12/22 20:50 10/12/22 20:35 10/12/22 20:25 78 10/12/22 20:21 82 8 L 136/58 91 L 10/12/22 19:45 88 10/12/22 19:01 98.8 F 78 18 138/80 98 10/12/22 18:18 99.0 F 88 20 143/67 98 10/12/22 15:25 102.1 F H 87 20 145/58 95 FiO2 10/13/22 09:40 10/13/22 09:32 10/13/22 09:26 40 10/13/22 09:25 10/13/22 04:17 40 10/13/22 04:00 40 10/13/22 02:00 10/13/22 00:27 40 10/12/22 23:30 10/12/22 23:10 40 10/12/22 23:05 10/12/22 21:42 10/12/22 20:50 40 10/12/22 20:35 40 10/12/22 20:25 10/12/22 20:21 10/12/22 19:45 10/12/22 19:01 10/12/22 18:18 10/12/22 15:25 Intake and Output 10/12/22 10/13/22 10/13/22 22:59 06:59 14:59 Intake Total 20 Output Total 350 Balance -350 20 Intake: IV 20 Invasive Line 1 10 Invasive Line 2 10 Output: Urine 350 Other: Voiding Method Indwelling Catheter Indwelling Catheter Weight 49.895 kg 53 kg No acute distress, wearing BiPAP mask. Patient is a very poor historian. HEENT examination is grossly unremarkable. Neck supple. Full range of motion. No adenopathy thyromegaly or neck vein distention. Cardiovascular examination reveals regular rhythm rate. S1-S2 normal. No S3 or S4. No discernible murmur noted. Heart sounds are distant. Heart rate 80 bpm. Lungs reveal scattered crackles. Breath sounds equal. She does not take deep breaths. Diffuse bilateral rhonchi. Saturations are 100% on BiPAP. Abdomen soft , without a mass, or tenderness. Extremities are intact. No cyanosis clubbing or edema. Skin is without rash or lesion. Neurologic examination is difficult to assess on this patient. She does move all 4 extremities. Results - Laboratory Findings CBC and BMP: 10/13/22 07:36 10/13/22 07:36 ABG ABG pH 7.24 (7.35-7.45) L 10/12/22 22:37 ABG pCO2 77 mmHg (35-45) H* 10/12/22 22:37 ABG pO2 91 mmHg (83-108) 10/12/22 22:37 ABG O2 Saturation 98.5 % (94-97) H 10/12/22 22:37 PT/INR, D-dimer PT 10.2 sec (9.0-12.0) 10/12/22 15:47 INR 1.0 (<1.2) 10/12/22 15:47 Abnormal lab findings: Abnormal Labs 10/12/22 10/12/22 10/12/22 15:47 15:47 15:47 Hct MCHC Plt Count Lymphocytes # APTT 21.0 L ABG pH ABG pCO2 ABG HCO3 ABG Total CO2 ABG O2 Saturation Sodium 135 L Chloride 96 L Carbon Dioxide 31 H BUN Glucose 109 H POC Glucose (mg/dL) Calcium Phosphorus AST ALT Troponin I 0.050 H* Total Protein 6.2 L Albumin Urine Protein Amorphous Sediment Urine Bacteria Hyaline Casts Urine Mucus 10/12/22 10/12/22 10/12/22 15:48 20:16 21:30 Hct MCHC Plt Count 135 L Lymphocytes # 0.7 L APTT ABG pH ABG pCO2 ABG HCO3 ABG Total CO2 ABG O2 Saturation Sodium Chloride Carbon Dioxide BUN Glucose POC Glucose (mg/dL) 146 H Calcium Phosphorus AST ALT Troponin I Total Protein Albumin Urine Protein 2+ H Amorphous Sediment Rare H Urine Bacteria Rare H Hyaline Casts 15 H Urine Mucus Rare H 10/12/22 10/13/22 10/13/22 22:37 07:36 07:36 Hct 46.3 H MCHC 30.4 L Plt Count 125 L Lymphocytes # 0.6 L APTT ABG pH 7.24 L ABG pCO2 77 H* ABG HCO3 33 H ABG Total CO2 35 H ABG O2 Saturation 98.5 H Sodium Chloride Carbon Dioxide BUN 22 H Glucose POC Glucose (mg/dL) Calcium 7.8 L Phosphorus 5.2 H AST 57 H ALT 49 H Troponin I Total Protein 5.6 L Albumin 3.2 L Urine Protein Amorphous Sediment Urine Bacteria Hyaline Casts Urine Mucus - Diagnostic Findings Chest x-ray: image reviewed Assessment and Plan Assessment: Acute hypoxemic and hypercapnic respiratory failure, secondary to either CHF, and/or pneumonia. History of hypertension. History of hyperlipidemia. History of COPD/asthma. History of uterine cancer. History of skin cancer. History of diabetes mellitus. History of CVA. History of gastroesophageal reflux disease. History of seizure disorder. History of pneumonia. History of multiple other medical problems and comorbidities. Plan: Plan dated 10/13/2022. The patient was given Augmentin, azithromycin, and Rocephin in the emergency department. Currently, the patient's on BiPAP, with settings of 10/5 and 40%. She's not receiving any IV fluids. Cardiology saw the patient and prescribe Lasix, 20 mg, IV push, every 12 hours. The patient is currently on updrafts with albuterol sulfate and ipratropium bromide. I will also added some Pulmicort and formoterol. The patient can likely come off the BiPAP today. Additional recommendations and suggestions are forthcoming. Prognosis is guarded. Time with Patient: Greater than 30
[2022-10-13 11:47] LABS: Glucose,Whole Blood 62 mg/dL (70-110)
--- NOTE | 2022-10-13 13:42 | P.HPIM ---
History of Present Illness H&P Date: 10/13/22 History of present illness patient is a 87-year-old lady with past medical history significant for hypertension, hyperlipidemia, pacemaker placement, COPD who presented to the hospital because of not feeling well for the past few days. Family was at the bedside, history was provided by the family. Patient has been complaining of increasing shortness of breath for the last few days . Denies any chest pain. Denies any orthopnea or PND Patient also been complaining of dizziness. Complaining of feeling hot and cold all the time. Patient also complaining of increased frequency of urination and burning while urination Initial lab work done in the ER showed white count 4.3, hemoglobin 13.6, p latelet count 135, sodium 135, potassium 3.7, BUN 17, creatinine 0.7, Initial chest x-ray showed cardiomegaly and mild pulmonary vascular congestion CT head without contrast showed no acute intracranial process She was admitted to medicine service for further evaluation and treatment REVIEW OF SYSTEMS: CONSTITUTIONAL: No malaise, no fatigue. HEENT: No recent visual problems or hearing problems. Denied any sore throat. CARDIOVASCULAR: As mentioned in HPI PULMONARY: As mentioned in HPI GASTROINTESTINAL: No diarrhea, no nausea, no vomiting, no abdominal pain. NEUROLOGICAL: No headaches, no weakness, no numbness. HEMATOLOGICAL: Denies any bleeding or petechiae. GENITOURINARY: As mentioned in HPI MUSCULOSKELETAL/RHEUMATOLOGICAL: Denies any joint pain, swelling, or any muscle pain. ENDOCRINE: Denies any polyuria or polydipsia. The rest of the 14-point review of systems is negative. PHYSICAL EXAMINATION: GENERAL: The patient is alert and oriented x3, not in any acute distress. Well developed, well nourished. HEENT: Pupils are round and equally reacting to light. EOMI. No scleral icterus. No conjunctival pallor. Normocephalic, atraumatic. No pharyngeal erythema. No thyromegaly. CARDIOVASCULAR: S1 and S2 present. No murmurs, rubs, or gallops. PULMONARY: Chest is clear to auscultation, no wheezing or crackles. ABDOMEN: Soft, nontender, nondistended, normoactive bowel sounds. No palpable organomegaly. MUSCULOSKELETAL: No joint swelling or deformity. EXTREMITIES: No cyanosis, clubbing, or pedal edema. NEUROLOGICAL: Gross neurological examination did not reveal any focal deficits. SKIN: No rashes. Assessment and plan Acute hypoxic respiratory failure Bacterial pneumonia caused by unspecified organism UTI Acute CHF of unknown etiology. Plan; Monitor vital signs Monitor CBC Monitor CMP Continue oxygen supplementation Continue breathing treatments Follow-up on 2-D echo Continue IV Rocephin. Azithromycin Consult pulmonary for evaluation consult cardiology Consult ID DVT prophylaxis: Past Medical History Past Medical History: Asthma, Cancer, Chest Pain / Angina, COPD, CVA/TIA, Diabetes Mellitus, GERD/Reflux, Hyperlipidemia, Hypertension, Osteoarthritis (OA), Pneumonia, Seizure Disorder Additional Past Medical History / Comment(s): TREMORS, HX OF PNEUMONIA SEVERAL TIMES, HX OF UTERINE AND SKIN CANCER, ANEMIA, "NON-FUNCTIONING GALL BLADDER", HX OF KIDNEY STONES,. occ loss of CONTROL OF HER BOWELS., "TEMPORAL ARTERITIS" excema, INSOMNIA,HIATAL HERNIA, last seizure about 10 yrs ago, told TIA 10-12 yrs ago, diff swallowing and wt loss of about 2 lbs a week, diverticulitis, hx prednisone induced diabetes, cervical dystonia, Neck/back fx History of Any Multi-Drug Resistant Organisms: None Reported Past Surgical History: Heart Catheterization, Hysterectomy, Pacemaker Additional Past Surgical History / Comment(s): VARICOSE VEINS REMOVED, HEART CATH X2. CATARACTS, SKIN CA REMOVED, pain clinic procedure Past Anesthesia/Blood Transfusion Reactions: Previous Problems w/ Anesthesia, Motion Sickness Additional Past Anesthesia/Blood Transfusion Reaction / Comment(s): SEVERE REACTION TO FENTANYL AND DEMEROL. Type of Cardiac Device: Permanent Pacemaker Device Placement Date:: june 2022 Past Psychological History: No Psychological Hx Reported Smoking Status: Never smoker Past Alcohol Use History: None Reported Additional Past Alcohol Use History / Comment(s): STARTED SMOKING AT AGE 10 - QUIT AT AGE 56, SMOKED 1 PPD. 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 Past Drug Use History: None Reported - Past Family History Father Additional Family Medical History / Comment(s): AT AGE 29-NOT SURE OF CAUSE Mother Family Medical History: Cancer Additional Family Medical History / Comment(s): . Brother(s) Family Medical History: Cancer Additional Family Medical History / Comment(s): . Daughter(s) Family Medical History: Cancer Additional Family Medical History / Comment(s): COLON CANCER Medications and Allergies Home Medications Medication Instructions Recorded Confirmed Type Albuterol Sulfate [Proair Hfa] 2 puff INHALATION RT-Q4H PRN 12/26/14 10/12/22 History Atorvastatin [Lipitor] 10 mg PO HS 12/26/14 10/12/22 History Ipratropium Nebulized [Atrovent 0.5 mg INHALATION RT-TID 12/26/14 10/12/22 History Nebulized 0.2 MG/ML] amLODIPine [Norvasc] 5 mg PO DAILY 12/26/14 10/12/22 History Montelukast [Singulair] 10 mg PO HS 02/13/15 10/12/22 History Pregabalin [Lyrica] 50 mg PO DAILY 02/11/20 10/12/22 History Pregabalin [Lyrica] 75 mg PO HS 02/11/20 10/12/22 History Udd-Fgns-Oamiy Acid 1 cap PO DAILY 02/11/20 10/12/22 History [-U Capsule (formulary)] Eszopiclone [Lunesta] 2 mg PO HS 10/12/22 10/12/22 History Furosemide [Lasix] 20 mg PO DAILY 10/12/22 10/12/22 History Tiotropium 18 Mcg/Puff [Spiriva] 1 cap INHALATION RT-DAILY 10/12/22 10/12/22 History Allergies Allergy/AdvReac Type Severity Reaction Status Date / Time codeine Allergy Dyspnea/hiv Verified 10/12/22 22:00 es fentanyl Allergy Anaphylaxis Verified 10/12/22 22:00 Iodinated Contrast Media Allergy Anaphylaxis Verified 10/12/22 22:00 [Iodinated Contrast Media - IV Dye] meperidine HCl [From Demerol] Allergy Anaphylaxis Verified 10/12/22 22:00 omeprazole Allergy Swelling/Ra Verified 10/12/22 22:00 sh adhesive tape AdvReac THIN AND Verified 10/12/22 22:00 SENSITIVE SKIN/RASH Physical Exam Vitals: Vital Signs Temp Pulse Pulse Resp BP BP Pulse Ox 10/13/22 09:40 80 10/13/22 09:32 76 10/13/22 09:26 10/13/22 09:25 97.8 F 92 22 146/62 100 10/13/22 04:17 10/13/22 04:00 97 F L 88 20 115/71 100 10/13/22 02:00 87 17 10/13/22 00:27 10/12/22 23:30 87 17 10/12/22 23:10 97.3 F L 87 17 112/56 100 10/12/22 23:05 98.0 F 90 16 92/50 100 10/12/22 21:42 98.9 F 93 15 139/56 98 10/12/22 20:50 10/12/22 20:35 10/12/22 20:25 78 10/12/22 20:21 82 8 L 136/58 91 L 10/12/22 19:45 88 10/12/22 19:01 98.8 F 78 18 138/80 98 10/12/22 18:18 99.0 F 88 20 143/67 98 10/12/22 15:25 102.1 F H 87 20 145/58 95 FiO2 10/13/22 09:40 10/13/22 09:32 10/13/22 09:26 40 10/13/22 09:25 10/13/22 04:17 40 10/13/22 04:00 40 10/13/22 02:00 10/13/22 00:27 40 10/12/22 23:30 10/12/22 23:10 40 10/12/22 23:05 10/12/22 21:42 10/12/22 20:50 40 10/12/22 20:35 40 10/12/22 20:25 10/12/22 20:21 10/12/22 19:45 10/12/22 19:01 10/12/22 18:18 10/12/22 15:25 Intake and Output 10/12/22 10/13/22 10/13/22 22:59 06:59 14:59 Output Total 350 Balance -350 Output: Urine 350 Other: Voiding Method Indwelling Catheter Weight 49.895 kg 53 kg Results CBC & Chem 7: 10/13/22 07:36 10/13/22 07:36 Labs: Abnormal Lab Results - Last 24 Hours (Table) 10/12/22 10/12/22 10/12/22 Range/Units 15:47 15:47 15:47 Hct (34.0-46.0) % MCHC (31.0-37.0) g/dL Plt Count (150-450) k/uL Lymphocytes # (1.0-4.8) k/uL APTT 21.0 L (22.0-30.0) sec ABG pH (7.35-7.45) ABG pCO2 (35-45) mmHg ABG HCO3 (21-25) mmol/L ABG Total CO2 (19-24) mmol/L ABG O2 Saturation (94-97) % Sodium 135 L (137-145) mmol/L Chloride 96 L (98-107) mmol/L Carbon Dioxide 31 H (22-30) mmol/L BUN (7-17) mg/dL Glucose 109 H (74-99) mg/dL POC Glucose (mg/dL) (70-110) mg/dL Calcium (8.4-10.2) mg/dL Phosphorus (2.5-4.5) mg/dL AST (14-36) U/L ALT (4-34) U/L Troponin I 0.050 H* (0.000-0.034) ng/mL Total Protein 6.2 L (6.3-8.2) g/dL Albumin (3.5-5.0) g/dL Urine Protein (Negative) Amorphous Sediment (None) /hpf Urine Bacteria (None) /hpf Hyaline Casts (0-2) /lpf Urine Mucus (None) /hpf 10/12/22 10/12/22 10/12/22 Range/Units 15:48 20:16 21:30 Hct (34.0-46.0) % MCHC (31.0-37.0) g/dL Plt Count 135 L (150-450) k/uL Lymphocytes # 0.7 L (1.0-4.8) k/uL APTT (22.0-30.0) sec ABG pH (7.35-7.45) ABG pCO2 (35-45) mmHg ABG HCO3 (21-25) mmol/L ABG Total CO2 (19-24) mmol/L ABG O2 Saturation (94-97) % Sodium (137-145) mmol/L Chloride (98-107) mmol/L Carbon Dioxide (22-30) mmol/L BUN (7-17) mg/dL Glucose (74-99) mg/dL POC Glucose (mg/dL) 146 H (70-110) mg/dL Calcium (8.4-10.2) mg/dL Phosphorus (2.5-4.5) mg/dL AST (14-36) U/L ALT (4-34) U/L Troponin I (0.000-0.034) ng/mL Total Protein (6.3-8.2) g/dL Albumin (3.5-5.0) g/dL Urine Protein 2+ H (Negative) Amorphous Sediment Rare H (None) /hpf Urine Bacteria Rare H (None) /hpf Hyaline Casts 15 H (0-2) /lpf Urine Mucus Rare H (None) /hpf 10/12/22 10/13/22 10/13/22 Range/Units 22:37 07:36 07:36 Hct 46.3 H (34.0-46.0) % MCHC 30.4 L (31.0-37.0) g/dL Plt Count 125 L (150-450) k/uL Lymphocytes # 0.6 L (1.0-4.8) k/uL APTT (22.0-30.0) sec ABG pH 7.24 L (7.35-7.45) ABG pCO2 77 H* (35-45) mmHg ABG HCO3 33 H (21-25) mmol/L ABG Total CO2 35 H (19-24) mmol/L ABG O2 Saturation 98.5 H (94-97) % Sodium (137-145) mmol/L Chloride (98-107) mmol/L Carbon Dioxide (22-30) mmol/L BUN 22 H (7-17) mg/dL Glucose (74-99) mg/dL POC Glucose (mg/dL) (70-110) mg/dL Calcium 7.8 L (8.4-10.2) mg/dL Phosphorus 5.2 H (2.5-4.5) mg/dL AST 57 H (14-36) U/L ALT 49 H (4-34) U/L Troponin I (0.000-0.034) ng/mL Total Protein 5.6 L (6.3-8.2) g/dL Albumin 3.2 L (3.5-5.0) g/dL Urine Protein (Negative) Amorphous Sediment (None) /hpf Urine Bacteria (None) /hpf Hyaline Casts (0-2) /lpf Urine Mucus (None) /hpf Thrombosis Risk Factor Assmnt - Choose All That Apply Each Risk Factor Represents 2 Points: Patient confined to bed Each Risk Factor Represents 3 Points: Age 75 years or older Thrombosis Risk Factor Assessment Total Risk Factor Score: 5 Thrombosis Risk Factor Assessment Level: High Risk
[2022-10-13 16:52] LABS: Glucose,Whole Blood 60 mg/dL (70-110)
[2022-10-13] MEDS ORDERED: DEXTROSE 50% SYRINGE 50 ML IVP ONE (17:55)
[2022-10-13] MEDS ORDERED: ALPRAZolam 0.25 MG TAB PO PRN (18:05)
[2022-10-13 18:17] LABS: Glucose,Whole Blood 193 mg/dL (70-110)
[2022-10-13] MEDS: ATORVASTATIN 10 MG TAB PO SCH (19:54)
[2022-10-13] MEDS: MONTELUKAST 10 MG TAB PO SCH (19:54)
[2022-10-13] MEDS: PREGABALIN 75 MG CAP PO SCH (19:54)
[2022-10-13] MEDS: TEMAZEPAM 15 MG CAP PO SCH (19:57)
[2022-10-13 19:58] LABS: Glucose,Whole Blood 128 mg/dL (70-110)
--- NOTE | 2022-10-13 19:59 | P.CONS ---
History of Present Illness - Reason for Consult Consult date: 10/13/22 UTI, pneumonia Requesting physician: Parrish Aguirre - Chief Complaint Shortness of breath x few days - History of Present Illness Patient is a 87-year-old female with a past medical history of hypertension hyperlipidemia COPD presenting to the ER for evaluation of not feeling well and increasing shortness of breath that apparently has been getting worse for the last few days before presentation to the hospital patient also have a cough she has been mild to moderate intensity with occasional sputum denies any pleuritic chest pain no nausea vomiting abdominal pain or any diarrhea patient presented to the hospital have a fever of 102.1 F patient was mildly hypoxic requiring BiPAP and supplemental oxygen did have normal white count with lymphopenia kidney function was normal liver symptoms normal troponins are mildly elevated urine has been negative influenza RSV and COVID testing was negative patient did have a chest x-ray cardiomegaly and mild pulm vascular congestion COPD changes CT brain negative for any bleed repeat chest x- ray this morning shows slightly more asymmetric right lower lung airspace opacity correlate for pneumonia patient did receive a dose of Rocephin in the ER currently on Zithromax infectious disease was consulted for further management of antibiotic therapy Review of Systems Positive point and negatives has been mentioned in the HPI, complete review of systems was performed and all other systems are negative Past Medical History Past Medical History: Asthma, Cancer, Chest Pain / Angina, COPD, CVA/TIA, Diabetes Mellitus, GERD/Reflux, Hyperlipidemia, Hypertension, Osteoarthritis (OA), Pneumonia, Seizure Disorder Additional Past Medical History / Comment(s): TREMORS, HX OF PNEUMONIA SEVERAL TIMES, HX OF UTERINE AND SKIN CANCER, ANEMIA, "NON-FUNCTIONING GALL BLADDER", HX OF KIDNEY STONES,. occ loss of CONTROL OF HER BOWELS., "TEMPORAL ARTERITIS" excema, INSOMNIA,HIATAL HERNIA, last seizure about 10 yrs ago, told TIA 10-12 yrs ago, diff swallowing and wt loss of about 2 lbs a week, diverticulitis, hx prednisone induced diabetes, cervical dystonia, Neck/back fx History of Any Multi-Drug Resistant Organisms: None Reported Past Surgical History: Heart Catheterization, Hysterectomy, Pacemaker Additional Past Surgical History / Comment(s): VARICOSE VEINS REMOVED, HEART CATH X2. CATARACTS, SKIN CA REMOVED, pain clinic procedure Past Anesthesia/Blood Transfusion Reactions: Previous Problems w/ Anesthesia, Motion Sickness Additional Past Anesthesia/Blood Transfusion Reaction / Comm: SEVERE REACTION TO FENTANYL AND DEMEROL. Type of Cardiac Device: Permanent Pacemaker Device Placement Date:: june 2022 Past Psychological History: No Psychological Hx Reported Smoking Status: Never smoker Past Alcohol Use History: None Reported Additional Past Alcohol Use History / Comment(s): STARTED SMOKING AT AGE 10 - QUIT AT AGE 56, SMOKED 1 PPD. 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 Past Drug Use History: None Reported - Past Family History Father Additional Family Medical History / Comment(s): AT AGE 29-NOT SURE OF CAUSE Mother Family Medical History: Cancer Additional Family Medical History / Comment(s): . Brother(s) Family Medical History: Cancer Additional Family Medical History / Comment(s): . Daughter(s) Family Medical History: Cancer Additional Family Medical History / Comment(s): COLON CANCER Medications and Allergies Home Medications Medication Instructions Recorded Confirmed Type Albuterol Sulfate [Proair Hfa] 2 puff INHALATION RT-Q4H PRN 12/26/14 10/15/22 History Atorvastatin [Lipitor] 10 mg PO HS 12/26/14 10/15/22 History Ipratropium Nebulized [Atrovent 0.5 mg INHALATION RT-TID 12/26/14 10/15/22 History Nebulized 0.2 MG/ML] amLODIPine [Norvasc] 5 mg PO DAILY 12/26/14 10/15/22 History Montelukast [Singulair] 10 mg PO HS 02/13/15 10/15/22 History Pregabalin [Lyrica] 50 mg PO DAILY 02/11/20 10/15/22 History Pregabalin [Lyrica] 75 mg PO HS 02/11/20 10/15/22 History Nmh-Tcdl-Ioshx Acid 1 cap PO DAILY 02/11/20 10/15/22 History [-U Capsule (formulary)] Eszopiclone [Lunesta] 2 mg PO HS 10/12/22 10/15/22 History Furosemide [Lasix] 20 mg PO DAILY 10/12/22 10/15/22 History Tiotropium 18 Mcg/Puff [Spiriva] 1 cap INHALATION RT-DAILY 10/12/22 10/15/22 History Allergies Allergy/AdvReac Type Severity Reaction Status Date / Time codeine Allergy Dyspnea/hiv Verified 10/15/22 10:55 es fentanyl Allergy Anaphylaxis Verified 10/15/22 10:55 Iodinated Contrast Media Allergy Anaphylaxis Verified 10/15/22 10:55 [Iodinated Contrast Media - IV Dye] meperidine HCl [From Demerol] Allergy Anaphylaxis Verified 10/15/22 10:55 omeprazole Allergy Swelling/Ra Verified 10/15/22 10:55 sh adhesive tape AdvReac THIN AND Verified 10/15/22 10:55 SENSITIVE SKIN/RASH Physical Exam Vitals: Vital Signs Temp Pulse Pulse Resp BP BP Pulse Ox 10/13/22 12:35 100 10/13/22 11:52 97.3 F L 90 20 151/69 100 10/13/22 09:40 80 10/13/22 09:32 76 10/13/22 09:26 10/13/22 09:25 97.8 F 92 22 146/62 100 10/13/22 04:17 10/13/22 04:00 97 F L 88 20 115/71 100 10/13/22 02:00 87 17 10/13/22 00:27 10/12/22 23:30 87 17 10/12/22 23:10 97.3 F L 87 17 112/56 100 10/12/22 23:05 98.0 F 90 16 92/50 100 10/12/22 21:42 98.9 F 93 15 139/56 98 10/12/22 20:50 10/12/22 20:35 10/12/22 20:25 78 10/12/22 20:21 82 8 L 136/58 91 L 10/12/22 19:45 88 10/12/22 19:01 98.8 F 78 18 138/80 98 10/12/22 18:18 99.0 F 88 20 143/67 98 10/12/22 15:25 102.1 F H 87 20 145/58 95 FiO2 10/13/22 12:35 10/13/22 11:52 10/13/22 09:40 10/13/22 09:32 10/13/22 09:26 40 10/13/22 09:25 10/13/22 04:17 40 10/13/22 04:00 40 10/13/22 02:00 10/13/22 00:27 40 10/12/22 23:30 10/12/22 23:10 40 10/12/22 23:05 10/12/22 21:42 10/12/22 20:50 40 10/12/22 20:35 40 10/12/22 20:25 10/12/22 20:21 10/12/22 19:45 10/12/22 19:01 10/12/22 18:18 10/12/22 15:25 Intake and Output 10/12/22 10/13/22 10/13/22 22:59 06:59 14:59 Intake Total 20 Output Total 350 Balance -350 20 Intake: IV 20 Invasive Line 1 10 Invasive Line 2 10 Output: Urine 350 Other: Voiding Method Indwelling Catheter Indwelling Catheter Weight 49.895 kg 53 kg GENERAL DESCRIPTION: Elderly female lying in bed, no distress. No tachypnea or accessory muscle of respiration use. HEENT: Shows Pallor , no scleral icterus. Oral mucous membrane is dry. NECK: Trachea central, no thyromegaly. LUNGS: Unlabored breathing. Coarse breath sounds bilaterally. HEART: S1, S2, regular rate and rhythm. No loud murmur ABDOMEN: Soft, no tenderness , guarding or rigidity, no organomegaly EXTREMITIES: No edema of feet. SKIN: No rash, no masses palpable. NEUROLOGICAL: The patient is lethargic but arousable mood and affect is normal Results CBC & Chem 7: 10/14/22 07:55 10/13/22 07:36 Labs: Abnormal Lab Results - Last 24 Hours (Table) 10/12/22 10/12/22 10/12/22 Range/Units 15:47 15:47 15:47 Hct (34.0-46.0) % MCHC (31.0-37.0) g/dL Plt Count (150-450) k/uL Lymphocytes # (1.0-4.8) k/uL APTT 21.0 L (22.0-30.0) sec ABG pH (7.35-7.45) ABG pCO2 (35-45) mmHg ABG HCO3 (21-25) mmol/L ABG Total CO2 (19-24) mmol/L ABG O2 Saturation (94-97) % Sodium 135 L (137-145) mmol/L Chloride 96 L (98-107) mmol/L Carbon Dioxide 31 H (22-30) mmol/L BUN (7-17) mg/dL Glucose 109 H (74-99) mg/dL POC Glucose (mg/dL) (70-110) mg/dL Calcium (8.4-10.2) mg/dL Phosphorus (2.5-4.5) mg/dL AST (14-36) U/L ALT (4-34) U/L Troponin I 0.050 H* (0.000-0.034) ng/mL Total Protein 6.2 L (6.3-8.2) g/dL Albumin (3.5-5.0) g/dL Urine Protein (Negative) Amorphous Sediment (None) /hpf Urine Bacteria (None) /hpf Hyaline Casts (0-2) /lpf Urine Mucus (None) /hpf 10/12/22 10/12/22 10/12/22 Range/Units 15:48 20:16 21:30 Hct (34.0-46.0) % MCHC (31.0-37.0) g/dL Plt Count 135 L (150-450) k/uL Lymphocytes # 0.7 L (1.0-4.8) k/uL APTT (22.0-30.0) sec ABG pH (7.35-7.45) ABG pCO2 (35-45) mmHg ABG HCO3 (21-25) mmol/L ABG Total CO2 (19-24) mmol/L ABG O2 Saturation (94-97) % Sodium (137-145) mmol/L Chloride (98-107) mmol/L Carbon Dioxide (22-30) mmol/L BUN (7-17) mg/dL Glucose (74-99) mg/dL POC Glucose (mg/dL) 146 H (70-110) mg/dL Calcium (8.4-10.2) mg/dL Phosphorus (2.5-4.5) mg/dL AST (14-36) U/L ALT (4-34) U/L Troponin I (0.000-0.034) ng/mL Total Protein (6.3-8.2) g/dL Albumin (3.5-5.0) g/dL Urine Protein 2+ H (Negative) Amorphous Sediment Rare H (None) /hpf Urine Bacteria Rare H (None) /hpf Hyaline Casts 15 H (0-2) /lpf Urine Mucus Rare H (None) /hpf 10/12/22 10/13/22 10/13/22 Range/Units 22:37 07:36 07:36 Hct 46.3 H (34.0-46.0) % MCHC 30.4 L (31.0-37.0) g/dL Plt Count 125 L (150-450) k/uL Lymphocytes # 0.6 L (1.0-4.8) k/uL APTT (22.0-30.0) sec ABG pH 7.24 L (7.35-7.45) ABG pCO2 77 H* (35-45) mmHg ABG HCO3 33 H (21-25) mmol/L ABG Total CO2 35 H (19-24) mmol/L ABG O2 Saturation 98.5 H (94-97) % Sodium (137-145) mmol/L Chloride (98-107) mmol/L Carbon Dioxide (22-30) mmol/L BUN 22 H (7-17) mg/dL Glucose (74-99) mg/dL POC Glucose (mg/dL) (70-110) mg/dL Calcium 7.8 L (8.4-10.2) mg/dL Phosphorus 5.2 H (2.5-4.5) mg/dL AST 57 H (14-36) U/L ALT 49 H (4-34) U/L Troponin I (0.000-0.034) ng/mL Total Protein 5.6 L (6.3-8.2) g/dL Albumin 3.2 L (3.5-5.0) g/dL Urine Protein (Negative) Amorphous Sediment (None) /hpf Urine Bacteria (None) /hpf Hyaline Casts (0-2) /lpf Urine Mucus (None) /hpf 10/13/22 Range/Units 11:45 Hct (34.0-46.0) % MCHC (31.0-37.0) g/dL Plt Count (150-450) k/uL Lymphocytes # (1.0-4.8) k/uL APTT (22.0-30.0) sec ABG pH (7.35-7.45) ABG pCO2 (35-45) mmHg ABG HCO3 (21-25) mmol/L ABG Total CO2 (19-24) mmol/L ABG O2 Saturation (94-97) % Sodium (137-145) mmol/L Chloride (98-107) mmol/L Carbon Dioxide (22-30) mmol/L BUN (7-17) mg/dL Glucose (74-99) mg/dL POC Glucose (mg/dL) 62 L (70-110) mg/dL Calcium (8.4-10.2) mg/dL Phosphorus (2.5-4.5) mg/dL AST (14-36) U/L ALT (4-34) U/L Troponin I (0.000-0.034) ng/mL Total Protein (6.3-8.2) g/dL Albumin (3.5-5.0) g/dL Urine Protein (Negative) Amorphous Sediment (None) /hpf Urine Bacteria (None) /hpf Hyaline Casts (0-2) /lpf Urine Mucus (None) /hpf Assessment and Plan (1) Pneumonia Status: Acute Code(s): J18.9 - PNEUMONIA, UNSPECIFIED ORGANISM SNOMED Code(s): 574441564 (2) UTI (urinary tract infection) Status: Acute Code(s): N39.0 - URINARY TRACT INFECTION, SITE NOT SPECIFIED SNOMED Code(s): 09844295 Plan: 1patient presented to hospital visit shortness of breath she also have a cough sputum production patient did have a fever with right lower lobe infiltrate con cerning for pneumonia likely community-acquired with some improvement of the patient received antibiotics in the ER, Rocephin and Zithromax 2-we will try to obtain sputum for Gram stain and culture 3-check a CRP and procalcitonin 4-continue with azithromycin will add Rocephin 2 g daily We will follow on clinical condition and cultures to further adjust medication if needed Thank you for this consultation we will follow the patient along with you Time with Patient: Greater than 30
[2022-10-13] MEDS: FORMOTEROL FUMARATE 20 MCG/2 ML NEBU INHALATION SCH (21:35)
[2022-10-13] MEDS: BUDESONIDE 1 MG/2 ML NEBU INHALATION SCH (21:35)
[2022-10-13] MEDS: AZITHROMYCIN 500 MG in SODIUM CHLORIDE 0.9% 250 ML IVPB SCH (23:38)
[2022-10-14] MEDS: DEXTROSE 50% SYRINGE 50 ML IVP PRN (06:14)
[2022-10-14 06:21] LABS: Glucose,Whole Blood 57 mg/dL (70-110)
[2022-10-14 06:27] LABS: Glucose,Whole Blood 147 mg/dL (70-110)
[2022-10-14 08:22] LABS: Basophils % (A) 0 %; Eosinophils % (A) 0 %; HCT 40.7 % (34.0-46.0); HGB 12.4 gm/dL (11.4-16.0); Hypochromasia Marked; Lymphocytes % (A) 17 %; MCHC 30.6 g/dL (31.0-37.0); MCV 97.9 fL (80.0-100.0); Mean Platelet Volume 9.1; Monocytes # (A) 0.5 k/uL (0-1.0); Monocytes % (A) 9 %; Neutrophils # (A) 3.9 k/uL (1.3-7.7); Neutrophils % (A) 71 %; Platelet Count 134 k/uL (150-450); RBC 4.15 m/uL (3.80-5.40); RDW 14.6 % (11.5-15.5); WBC 5.5 k/uL (3.8-10.6)
[2022-10-14] MEDS: FORMOTEROL FUMARATE 20 MCG/2 ML NEBU INHALATION SCH ×2 (08:23→20:57)
[2022-10-14] MEDS: BUDESONIDE 1 MG/2 ML NEBU INHALATION SCH ×2 (08:23→20:57)
[2022-10-14] MEDS: ALBUTEROL NEBULIZED 2.5 MG/3 ML INHALATION PRN ×4 (08:23→20:57)
[2022-10-14] MEDS ORDERED: PREGABALIN 50 MG CAP PO SCH (09:00)
[2022-10-14] MEDS: FUROSEMIDE 10 MG/ML 2 ML VIAL IV SCH ×2 (09:13→19:41)
[2022-10-14] MEDS: PANTOPRAZOLE 40 MG/10 ML VIAL IV SCH (09:13)
[2022-10-14 11:43] LABS: Glucose,Whole Blood 73 mg/dL (70-110)
[2022-10-14] MEDS ORDERED: DEXTROSE 5%-0.9% NACL 1,000 ML IV SCH (12:15)
--- NOTE | 2022-10-14 12:49 | P.PN ---
Subjective Progress Note Date: 10/14/22 Principal diagnosis: Pneumonia Patient is a 87-year-old female with a past medical history of hypertension hyperlipidemia COPD presenting to the ER for evaluation of not feeling well and increasing shortness of breath, patient did have a fever and right lower lobe infiltrate concerning for pneumonia. On today's evaluation that is 10/14/2022, the patient is afebrile however the patient is requiring BiPAP to support her oxygenation, the patient is currently lethargic and did not answer any question no vomiting diarrhea or any other changes reported by the nursing staff Objective - Vital Signs Vital signs: Vital Signs Temp 98.1 F 10/14/22 09:05 Pulse 88 10/14/22 11:53 Resp 18 10/14/22 09:05 BP 120/63 10/14/22 09:05 Pulse Ox 100 10/14/22 09:05 FiO2 40 10/14/22 11:41 Intake & Output 10/13/22 10/14/22 10/14/22 18:59 06:59 18:59 Intake Total 40 Output Total 1000 500 300 Balance -960 -500 -300 Weight 53 kg Intake: IV 40 Invasive Line 1 20 Invasive Line 2 20 Output: Urine 1000 500 300 Other: Voiding Method Indwelling Catheter Indwelling Catheter Indwelling Catheter - Exam GENERAL DESCRIPTION: An elderly female lying in bed in no distress RESPIRATORY SYSTEM: Unlabored breathing , coarse breath sounds bilaterally HEART: S1 S2 regular rate and rhythm , ABDOMEN: Soft , no tenderness EXTREMITIES: No edema feet - Labs CBC & Chem 7: 10/14/22 07:55 10/13/22 07:36 Labs: Abnormal Lab Results - Last 24 Hours (Table) 10/13/22 10/13/22 10/13/22 Range/Units 07:36 16:51 18:15 MCHC (31.0-37.0) g/dL Plt Count (150-450) k/uL POC Glucose (mg/dL) 60 L 193 H (70-110) mg/dL C-Reactive Protein (<1.0) mg/dL Procalcitonin 0.33 H (0.02-0.09) ng/mL 10/13/22 10/14/22 10/14/22 Range/Units 19:55 06:11 06:25 MCHC (31.0-37.0) g/dL Plt Count (150-450) k/uL POC Glucose (mg/dL) 128 H 57 L 147 H (70-110) mg/dL C-Reactive Protein (<1.0) mg/dL Procalcitonin (0.02-0.09) ng/mL 10/14/22 10/14/22 10/14/22 Range/Units 07:55 07:55 07:55 MCHC 30.6 L (31.0-37.0) g/dL Plt Count 134 L (150-450) k/uL POC Glucose (mg/dL) (70-110) mg/dL C-Reactive Protein 7.0 H (<1.0) mg/dL Procalcitonin 0.74 H (0.02-0.09) ng/mL Microbiology - Last 24 Hours (Table) 10/12/22 18:05 Blood Culture - Preliminary Blood Assessment and Plan (1) Pneumonia Current Visit: Yes Status: Acute Code(s): J18.9 - PNEUMONIA, UNSPECIFIED ORGANISM SNOMED Code(s): 242593979 Plan: 1patient presented to hospital visit shortness of breath she also have a cough sputum production patient did have a fever with right lower lobe infiltrate concerning for pneumonia likely community-acquired with some improvement of the patient received antibiotics in the ER, Rocephin and Zithromax 2-we will try to obtain sputum for Gram stain and culture 3Patient did have elevated procalcitonin of 0.74 4-patient to continue with azithromycin and Rocephin 2 g daily Time with Patient: Less than 30
[2022-10-14 13:31] LABS: ABG Base Excess 8.8 mmol/L; ABG HCO3 36 mmol/L (21-25); ABG PH 7.27 (7.35-7.45); ABG PO2 96 mmHg (83-108); ABG TCO2 38 mmol/L (19-24); Allen Test Performed? Yes
--- NOTE | 2022-10-14 13:31 | P.PN ---
Subjective Progress Note Date: 10/14/22 The patient is an 87-year-old female patient with a past medical history significant for permanent pacemaker as well as hypertension and dyslipidemia who was brought into the hospital with increasing shortness of breath. The patient is extremely poor historian. She has been experiencing increasing in the shortness of breath for the last 3-4 days associated with fever. She also developed bilateral lower extremity edema. No symptoms of any chest pain or chest discomfort or dizziness or lightheadedness or any feeling of heart racing or fluttering or any presyncope or syncope. She underwent further workup including an EKG showed ventricular paced rhythm and also she underwent a chest x-ray showed evidence consistent with volume overload/pulmonary vascular congestions. Her NT proBNP came in to be around 4000. The patient is hypoxic without oxygen and currently she is on BiPAP. She was diagnosed with pneumonia and she was started on antibiotic with azithromycin and ceftriaxone. The BMP sh owed normal creatinine and hemoglobin appeared to be within normal limits. The patient was seen by our service plaque into was an 18 where she underwent an echo that revealed normal biventricular dimension and systolic function with no significant valvular abnormalities. The troponin came in to be slightly elevated. 10/14 Patient is seen today in follow-up. EKG paced rhythm. Echocardiogram has been obtained and report is pending. Repeat blood work reveals WBC 5.5, hemoglobin 12.4. Pro-calcitonin 0.74. C-reactive protein 7. Heart rate is in the 80s, blood pressure 127/63. Patient is on BiPAP. Examination is remarkable for severe bilateral wheezing and rhonchi. She has mild bilateral lower extremity edema. The heart sounds are distant and in the light of extensive wheezing and rhonchi I was able to detect any murmur. Assessment Acute hypoxic respiratory failure Pneumonia Heart failure of unknown etiology Permanent pacemaker Plan The patient is on antibiotic for pneumonia Patient is currently on IV Lasix 20 mg every 12 hours to be continued Continue monitoring her kidney function and electrolytes Obtain an echocardiogram report Follow-up with the patient Nurse practitioner note has been reviewed, I agree with the documented findings and plan of care. Patient was seen and examined. Objective - Vital Signs Vital signs: Vital Signs Temp 98.1 F 10/14/22 09:05 Pulse 88 10/14/22 11:53 Resp 14 10/14/22 11:45 BP 127/63 06/19/23 11:45 Pulse Ox 100 10/14/22 11:45 FiO2 40 10/14/22 11:41 Intake & Output 10/13/22 10/14/22 10/14/22 18:59 06:59 18:59 Intake Total 40 Output Total 1000 500 300 Balance -960 -500 -300 Weight 53 kg Intake: IV 40 Invasive Line 1 20 Invasive Line 2 20 Output: Urine 1000 500 300 Other: Voiding Method Indwelling Catheter Indwelling Catheter Indwelling Catheter - Labs CBC & Chem 7: 10/14/22 07:55 10/13/22 07:36 Labs: Abnormal Lab Results - Last 24 Hours (Table) 10/13/22 10/13/22 10/13/22 Range/Units 07:36 16:51 18:15 MCHC (31.0-37.0) g/dL Plt Count (150-450) k/uL POC Glucose (mg/dL) 60 L 193 H (70-110) mg/dL C-Reactive Protein (<1.0) mg/dL Procalcitonin 0.33 H (0.02-0.09) ng/mL 10/13/22 10/14/22 10/14/22 Range/Units 19:55 06:11 06:25 MCHC (31.0-37.0) g/dL Plt Count (150-450) k/uL POC Glucose (mg/dL) 128 H 57 L 147 H (70-110) mg/dL C-Reactive Protein (<1.0) mg/dL Procalcitonin (0.02-0.09) ng/mL 10/14/22 10/14/22 10/14/22 Range/Units 07:55 07:55 07:55 MCHC 30.6 L (31.0-37.0) g/dL Plt Count 134 L (150-450) k/uL POC Glucose (mg/dL) (70-110) mg/dL C-Reactive Protein 7.0 H (<1.0) mg/dL Procalcitonin 0.74 H (0.02-0.09) ng/mL Microbiology - Last 24 Hours (Table) 10/12/22 18:05 Blood Culture - Preliminary Blood
[2022-10-14 13:37] LABS: ABG PCO2 77 mmHg (35-45)
--- NOTE | 2022-10-14 13:49 | P.PN ---
Subjective Progress Note Date: 10/14/22 87-year-old female, poor historian, who was seen in the emergency department on October 12, apparently brought in by EMS, complaining of dizziness. The patient is currently on BiPAP, with settings of 10/5 and 40%. She's not receiving any IV fluids. The patient is not really able to give much in the way of history. According to the ER sepideh, she wasn't feeling well, and apparently planed of dizziness, and feeling hot and cold. She apparently denied any chest pain or chest discomfort. There is no mention of shortness of breath in the ER sepideh. Her chest x-ray was consistent with possible fluid overload versus pneumonia. Her N-terminal proBNP was elevated. According to the ER sepideh, this patient has a history of angina, COPD/asthma, CVA, diabetes, GERD, hyperlipidemia, hypertension, and seizure disorder. She also has history of uterine and skin cancer, as well as temporal arteritis. The patient apparently is a lifelong non-smoker. White count 5.7, hemoglobin 14.1, hematocrit 46.3, and platelet count 125,000. Blood gases show pO2 of 91, pCO2 of 77, and pH is 7.24. This is on 40%. It was done yesterday. Sodium 140, potassium 4, chlorides 103, CO2 29, BUN 22, and creatinine 0.74. Albumin is 3.2. AST is 57 with an ALT of 49. Urine shows rare bacteria but nitrite and leukocyte esterase were both negative, and there were essentially no WBCs in the urine. On today's evaluation of 10/14/2022, the patient is being seen for a follow-up. The patient is started on a BiPAP at a pressure of 10/5 cm of water. The patient is known to have COPD/asthma. She has previous history of CVA, diabetes mellitus, hyperlipidemia and hypertension. Disorder. She has also a remote history of temporal arthritis and skin cancer/uterine cancer. She is a DNR/DNI CODE STATUS. The chest x-ray from admission showed asymmetric opacities bilaterally consistent with CHF. Nevertheless, pneumonia was also suspected and the patient was placed on accommodation of Rocephin and Zithromax and the p atient receiving Lasix 20 mg IV every 12 hours. The blood gas from today shows a pH of 7.27 with a pCO2 of 77 and pO2 of 96. The rest of the S shows a WBC count of 5.5 with a hemoglobin 12.4 and a platelet count of 134. Pro-calcitonin level is at 0.74. Objective - Vital Signs Vital signs: Vital Signs Temp 98.1 F 10/14/22 09:05 Pulse 81 10/14/22 09:05 Resp 18 10/14/22 09:05 BP 120/63 10/14/22 09:05 Pulse Ox 100 10/14/22 09:05 FiO2 40 10/14/22 08:23 Intake & Output 10/13/22 10/14/22 10/14/22 18:59 06:59 18:59 Intake Total 40 Output Total 1000 500 300 Balance -960 -500 -300 Weight 53 kg Intake: IV 40 Invasive Line 1 20 Invasive Line 2 20 Output: Urine 1000 500 300 Other: Voiding Method Indwelling Catheter Indwelling Catheter Indwelling Catheter - Exam No acute distress, wearing BiPAP mask. Patient is a very poor historian. The patient remains on a BiPAP for now which is tolerating it fairly well. HEENT examination is grossly unremarkable. Neck supple. Full range of motion. No adenopathy thyromegaly or neck vein distention. Cardiovascular examination reveals regular rhythm rate. S1-S2 normal. No S3 or S4. No discernible murmur noted. Heart sounds are distant. Lungs reveal scattered crackles. Breath sounds equal. She does not take deep breaths. Diffuse bilateral rhonchi. Abdomen soft , without a mass, or tenderness. Extremities are intact. No cyanosis clubbing or edema. Skin is without rash or lesion. Neurologic examination is difficult to assess on this patient. She does move all 4 extremities. - Labs CBC & Chem 7: 10/14/22 07:55 10/13/22 07:36 Labs: Abnormal Lab Results - Last 24 Hours (Table) 10/13/22 10/13/22 10/13/22 Range/Units 07:36 11:45 16:51 MCHC (31.0-37.0) g/dL Plt Count (150-450) k/uL POC Glucose (mg/dL) 62 L 60 L (70-110) mg/dL C-Reactive Protein (<1.0) mg/dL Procalcitonin 0.33 H (0.02-0.09) ng/mL 10/13/22 10/13/22 10/14/22 Range/Units 18:15 19:55 06:11 MCHC (31.0-37.0) g/dL Plt Count (150-450) k/uL POC Glucose (mg/dL) 193 H 128 H 57 L (70-110) mg/dL C-Reactive Protein (<1.0) mg/dL Procalcitonin (0.02-0.09) ng/mL 10/14/22 10/14/22 10/14/22 Range/Units 06:25 07:55 07:55 MCHC 30.6 L (31.0-37.0) g/dL Plt Count 134 L (150-450) k/uL POC Glucose (mg/dL) 147 H (70-110) mg/dL C-Reactive Protein 7.0 H (<1.0) mg/dL Procalcitonin (0.02-0.09) ng/mL Microbiology - Last 24 Hours (Table) 10/12/22 18:05 Blood Culture - Preliminary Blood Assessment and Plan Plan: Acute hypoxemic and hypercapnic respiratory failure, secondary to either CHF, and/or pneumonia. She is on a BIPAP of 10/5 and fio2 of 40 %. Blood gases showing a component of hypercapnic respiratory failure, acute and the patient be kept on BiPAP for today. Acute hypoxic/hypercapnic respiratory failure, still on a BiPAP History of hypertension. History of hyperlipidemia. History of COPD/asthma. History of uterine cancer. History of skin cancer. History of diabetes mellitus. History of CVA. History of gastroesophageal reflux disease. History of seizure disorder. History of pneumonia. History of multiple other medical problems and comorbidities. Plan: DNR/DNI CODE STATUS Continue BiPAP for today Continue IV Lasix continue bronchodilators Continue the current antibiotic coverage Obtain a follow-up chest x-ray in the morning Obtain a blood gases in the morning Obtain echocardiogram We'll continue to follow Prognosis poor based above-mentioned comorbidities
--- NOTE | 2022-10-14 14:18 | CA ---
Transthoracic Echo Report Name: Milli Addison Age: 87 Gender: F : 1935 Exam Date: 10/14/2022 09:31 Exam Location: [place] [facility] Ht (in): 64 Wt (lb): 116 Ordering Physician: Keaton Garcia MD ([id number]) Attending/Referring Phys: Senior Support Analyst Nae Wilson [facility] Procedure CPT: Indications: Heart failure Cardiac Hx: Technical Quality: Fair Contrast 1: Total Dose (mL): Contrast 2: Total Dose (mL): MEASUREMENTS (Male / Female) Normal Values 2D ECHO LV Diastolic Diameter PLAX 4.1 cm 4.2 - 5.9 / 3.9 - 5.3 cm LV Systolic Diameter PLAX 2.8 cm IVS Diastolic Thickness 0.9 cm 0.6 - 1.0 / 0.6 - 0.9 cm LVPW Diastolic Thickness 1.1 cm 0.6 - 1.0 / 0.6 - 0.9 cm LV Relative Wall Thickness 0.5 RV Internal Dim ED PLAX 2.9 cm LVOT Diameter 2.0 cm M-MODE Aortic Root Diameter MM 2.2 cm LA Systolic Diameter MM 3.8 cm LA Ao Ratio MM 1.7 AV Cusp Separation MM 1.5 cm DOPPLER AV Peak Velocity 196.5 cm/s AV Peak Gradient 15.4 mmHg AV Mean Velocity 155.0 cm/s AV Mean Gradient 10.1 mmHg AV Velocity Time Integral 35.4 cm LVOT Peak Velocity 151.9 cm/s LVOT Peak Gradient 9.2 mmHg LVOT Velocity Time Integral 27.6 cm LVOT Stroke Volume 84.6 cm??? LVOT Stroke Volume Index 54.5 ml/m??? LVOT Cardiac Index 4512.1 cm???/min???m??? AV Area Cont Eq vti 2.4 cm??? AV Area Cont Eq pk 2.4 cm??? MV Area PHT 3.6 cm??? MR Peak Velocity 165.2 cm/s MR Peak Gradient 10.9 mmHg LV E' Lateral Velocity 2.9 cm/s LV E' Septal Velocity 5.9 cm/s TR Peak Velocity 290.1 cm/s TR Peak Gradient 36.8 mmHg Right Atrial Pressure 8.0 mmHg Pulmonary Artery Systolic Pressu 41.7 mmHg Right Ventricular Systolic Press 41.8 mmHg FINDINGS Left Ventricle Mildly increased posterior wall thickness. Normal Left ventricular size, wall thickness, systolic function with no obvious regional wall motion abnormalities. Left ventricular ejection fraction is estimated at 55-60%. Right Ventricle Normal right ventricular size and function. Right Atrium Mild right atrial dilatation. Left Atrium Mild left atrial dilatation. Mitral Valve Moderate thickening/calcification of the mitral valve. Mild-moderate mitral regurgitation. Moderate mitral annular calcification. Aortic Valve Trileaflet aortic valve. Aortic valve sclerosis. No aortic regurgitation. Diffuse thickening of the aortic valve cusps without reduced excursion. Tricuspid Valve Structurally normal tricuspid valve. Mild tricuspid regurgitation. Pulmonic Valve Structurally normal pulmonic valve. Trace pulmonic regurgitation. Pericardium No pericardial effusion. Aorta Normal size aortic root and proximal ascending aorta. CONCLUSIONS Left ventricular ejection fraction 55-60% Mild to moderate mitral regurgitation Moderate mitral calcification Aortic sclerosis without significant stenosis Mild tricuspid regurgitation RVSP 42 Previewed by: Dr. Julio C Garcia DO (Electronically Signed) Final Date: 14 October 2022 14:16
--- NOTE | 2022-10-14 14:35 | P.PN ---
Subjective Progress Note Date: 10/14/22 patient is a 87-year-old lady with past medical history significant for hypertension, hyperlipidemia, pacemaker placement, COPD who presented to the hospital because of not feeling well for the past few days. Family was at the bedside, history was provided by the family. Patient has been complaining of i ncreasing shortness of breath for the last few days . Denies any chest pain. Denies any orthopnea or PND Patient also been complaining of dizziness. Complaining of feeling hot and cold all the time. Patient also complaining of increased frequency of urination and burning while urination Initial lab work done in the ER showed white count 4.3, hemoglobin 13.6, platelet count 135, sodium 135, potassium 3.7, BUN 17, creatinine 0.7, Initial chest x-ray showed cardiomegaly and mild pulmonary vascular congestion CT head without contrast showed no acute intracranial process She was admitted to medicine service for further evaluation and treatment 10/14. Patient seen and examined. Patient currently on BiPAP, blood sugars have been low. REVIEW OF SYSTEMS: Cannot be obtained because of patient respiratory status PHYSICAL EXAMINATION: GENERAL: The patient is alert, currently on BiPAP. Well developed, well nourished. HEENT: Pupils are round and equally reacting to light. EOMI. No scleral icterus. No conjunctival pallor. Normocephalic, atraumatic. No pharyngeal erythema. No thyromegaly. CARDIOVASCULAR: S1 and S2 present. No murmurs, rubs, or gallops. PULMONARY: diminished breath sounds at the bases bilaterally, crackles audible ABDOMEN: Soft, nontender, nondistended, normoactive bowel sounds. No palpable organomegaly. MUSCULOSKELETAL: No joint swelling or deformity. EXTREMITIES: No cyanosis, clubbing, or pedal edema. NEUROLOGICAL: Gross neurological examination did not reveal any focal deficits. SKIN: No rashes. Assessment and plan Acute hypoxic respiratory failure Bacterial pneumonia caused by unspecified organism UTI Acute CHF of unknown etiology. Monitor vital signs Monitor CBC Monitor CMP Continue telemetry monitoring Continue BiPAP as needed Continue oxygen supplementation Continue breathing treatments Follow-up on 2-D echo Continue IV Rocephin. Azithromycin Continue IV Lasix For episodes of hypoglycemia, start patient on D5 W at 50 mL per hour Follow follow-up on pulmonary recommendations Follow-up on cardiology recommendations ID following Objective - Vital Signs Vital signs: Vital Signs Temp 97.9 F 06/19/23 03:50 Pulse 84 10/14/22 08:56 Resp 18 10/14/22 03:50 BP 132/54 10/14/22 03:50 Pulse Ox 99 10/14/22 03:50 FiO2 40 10/14/22 08:23 Intake & Output 10/13/22 10/14/22 10/14/22 18:59 06:59 18:59 Intake Total 40 Output Total 1000 500 Balance -960 -500 Weight 53 kg Intake: IV 40 Invasive Line 1 20 Invasive Line 2 20 Output: Urine 1000 500 Other: Voiding Method Indwelling Catheter Indwelling Catheter - Labs CBC & Chem 7: 10/14/22 07:55 10/13/22 07:36 Labs: Abnormal Lab Results - Last 24 Hours (Table) 10/13/22 10/13/22 10/13/22 Range/Units 11:45 16:51 18:15 MCHC (31.0-37.0) g/dL Plt Count (150-450) k/uL POC Glucose (mg/dL) 62 L 60 L 193 H (70-110) mg/dL C-Reactive Protein (<1.0) mg/dL 10/13/22 10/14/22 10/14/22 Range/Units 19:55 06:11 06:25 MCHC (31.0-37.0) g/dL Plt Count (150-450) k/uL POC Glucose (mg/dL) 128 H 57 L 147 H (70-110) mg/dL C-Reactive Protein (<1.0) mg/dL 10/14/22 10/14/22 Range/Units 07:55 07:55 MCHC 30.6 L (31.0-37.0) g/dL Plt Count 134 L (150-450) k/uL POC Glucose (mg/dL) (70-110) mg/dL C-Reactive Protein 7.0 H (<1.0) mg/dL Microbiology - Last 24 Hours (Table) 10/12/22 18:05 Blood Culture - Preliminary Blood
[2022-10-14 16:34] LABS: Glucose,Whole Blood 81 mg/dL (70-110)
[2022-10-14] MEDS: SODIUM CHLORIDE 0.9% 1,000 ML IV SCH (19:41)
[2022-10-14] MEDS: PREGABALIN 75 MG CAP PO SCH (19:41)
[2022-10-14] MEDS: ATORVASTATIN 10 MG TAB PO SCH (19:41)
[2022-10-14] MEDS: TEMAZEPAM 15 MG CAP PO SCH (19:41)
[2022-10-14] MEDS: MONTELUKAST 10 MG TAB PO SCH (19:41)
[2022-10-14 20:01] LABS: Glucose,Whole Blood 83 mg/dL (70-110)
[2022-10-14] MEDS: AZITHROMYCIN 500 MG in SODIUM CHLORIDE 0.9% 250 ML IVPB SCH (23:48)
[2022-10-15] MEDS: ALBUTEROL NEBULIZED 2.5 MG/3 ML INHALATION PRN ×3 (00:18→07:41)
[2022-10-15 01:41] LABS: Glucose,Whole Blood 68 mg/dL (70-110)
[2022-10-15] MEDS: DEXTROSE 50% SYRINGE 50 ML IVP PRN (01:47)
[2022-10-15 02:09] LABS: Glucose,Whole Blood 143 mg/dL (70-110)
[2022-10-15 05:59] LABS: Glucose,Whole Blood 138 mg/dL (70-110)
[2022-10-15 06:32] VITALS: TEMP 97.7
[2022-10-15] MEDS: BUDESONIDE 1 MG/2 ML NEBU INHALATION SCH (07:41)
[2022-10-15] MEDS: FORMOTEROL FUMARATE 20 MCG/2 ML NEBU INHALATION SCH (07:41)
--- NOTE | 2022-10-15 08:04 | XR ---
EXAMINATION TYPE: XR chest 1V DATE OF EXAM: 10/15/2022 COMPARISON: 10/12/2022 HISTORY: Shortness of breath TECHNIQUE: Single frontal view of the chest is obtained. FINDINGS: Elevated left hemidiaphragm subsegmental linear changes. There is no overt failure. Heart size normal. Atherosclerotic change aorta. Diffuse osteopenia and arthropathy of the shoulders. No si zable pneumothorax. IMPRESSION: 1. COPD with basilar atelectasis favored over infiltrate. No overt failure.
[2022-10-15 09:45] VITALS: BP 135/63; PULSE 94; RESP 14
--- NOTE | 2022-10-15 12:24 | P.PN ---
Subjective Progress Note Date: 10/15/22 87-year-old female, poor historian, who was seen in the emergency department on October 12, apparently brought in by EMS, complaining of dizziness. The patient is currently on BiPAP, with settings of 10/5 and 40%. She's not receiving any IV fluids. The patient is not really able to give much in the way of history. According to the ER sepideh, she wasn't feeling well, and apparently planed of dizziness, and feeling hot and cold. She apparently denied any chest pain or chest discomfort. There is no mention of shortness of breath in the ER sepideh. Her chest x-ray was consistent with possible fluid overload versus pneumonia. Her N-terminal proBNP was elevated. According to the ER sepideh, this patient has a history of angina, COPD/asthma, CVA, diabetes, GERD, hyperlipidemia, hypertension, and seizure disorder. She also has history of uterine and skin cancer, as well as temporal arteritis. The patient apparently is a lifelong non-smoker. White count 5.7, hemoglobin 14.1, hematocrit 46.3, and platelet count 125,000. Blood gases show pO2 of 91, pCO2 of 77, and pH is 7.24. This is on 40%. It was done yesterday. Sodium 140, potassium 4, chlorides 103, CO2 29, BUN 22, and creatinine 0.74. Albumin is 3.2. AST is 57 with an ALT of 49. Urine shows rare bacteria but nitrite and leukocyte esterase were both negative, and there were essentially no WBCs in the urine. On today's evaluation of 10/14/2022, the patient is being seen for a follow-up. The patient is started on a BiPAP at a pressure of 10/5 cm of water. The patient is known to have COPD/asthma. She has previous history of CVA, diabetes mellitus, hyperlipidemia and hypertension. Disorder. She has also a remote history of temporal arthritis and skin cancer/uterine cancer. She is a DNR/DNI CODE STATUS. The chest x-ray from admission showed asymmetric opacities bilaterally consistent with CHF. Nevertheless, pneumonia was also suspected and the patient was placed on accommodation of Rocephin and Zithromax and the p atient receiving Lasix 20 mg IV every 12 hours. The blood gas from today shows a pH of 7.27 with a pCO2 of 77 and pO2 of 96. The rest of the S shows a WBC count of 5.5 with a hemoglobin 12.4 and a platelet count of 134. Pro-calcitonin level is at 0.74. On today's evaluation of 10/15/2022, the patient is being seen for a follow-up. The patient is still very much lethargic and weak. She is barely communicating while being on a BiPAP at a pressure of 12/5 cm of water. The generator tidal volumes are quite low and they are in the order of 202 150 mL. Minute ventilation remains low. Cor status is DNR/DNI., Weight is up many including CVA, diabetes mellitus, hyperlipidemia and hypertension. Over the past 24 hours, the patient was diabetes IV Lasix and the patient responded well and she has been negative fluid balance. At the same time, a repeat chest x-ray was done today and the patient's showsImprovement in volume status, elevation of the left hemidiaphragm, no overt signs of failure on the follow-up chest x-ray. Labs from today are still pending. Meanwhile, more family arrived and was made clear to me that the family wanted to proceed with comfort care/end-of-life care treatment. As such, hospice has already been consulted in her care. Objective - Vital Signs Vital signs: Vital Signs Temp 97.7 F 10/15/22 09:44 Pulse 94 10/15/22 09:44 Resp 14 10/15/22 09:44 BP 135/63 10/15/22 09:44 Pulse Ox 99 10/15/22 09:44 FiO2 40 10/15/22 07:41 Intake & Output 10/14/22 10/15/22 10/15/22 18:59 06:59 18:59 Output Total 300 725 Balance -300 -725 Weight 52.5 kg Output: Urine 300 725 Other: Voiding Method Indwelling Catheter Indwelling Catheter Indwelling Catheter - Exam No acute distress, wearing BiPAP mask. Patient is a very poor historian. The patient remains on a BiPAP at a pressure of 12/5 cm of water, very much lethargic and sleepy, hardly arousable. HEENT examination is grossly unremarkable. Neck supple. Full range of motion. No adenopathy thyromegaly or neck vein distention. Cardiovascular examination reveals regular rhythm rate. S1-S2 normal. No S3 or S4. No discernible murmur noted. Heart sounds are distant. Lungs reveal scattered crackles. Breath sounds equal. She does not take deep breaths. Diffuse bilateral rhonchi. Abdomen soft , without a mass, or tenderness. Extremities are intact. No cyanosis clubbing or edema. Skin is without rash or lesion. Neurologic examination is difficult to assess on this patient. She does move all 4 extremities. - Labs CBC & Chem 7: 10/14/22 07:55 10/13/22 07:36 Labs: Abnormal Lab Results - Last 24 Hours (Table) 10/13/22 10/14/22 10/14/22 Range/Units 07:36 07:55 13:28 ABG pH 7.27 L (7.35-7.45) ABG pCO2 77 H* (35-45) mmHg ABG HCO3 36 H (21-25) mmol/L ABG Total CO2 38 H (19-24) mmol/L ABG O2 Saturation 98.0 H (94-97) % POC Glucose (mg/dL) (70-110) mg/dL Procalcitonin 0.33 H 0.74 H (0.02-0.09) ng/mL 10/15/22 10/15/22 10/15/22 Range/Units 01:39 02:05 05:57 ABG pH (7.35-7.45) ABG pCO2 (35-45) mmHg ABG HCO3 (21-25) mmol/L ABG Total CO2 (19-24) mmol/L ABG O2 Saturation (94-97) % POC Glucose (mg/dL) 68 L 143 H 138 H (70-110) mg/dL Procalcitonin (0.02-0.09) ng/mL Microbiology - Last 24 Hours (Table) 10/12/22 18:05 Blood Culture - Preliminary Blood Assessment and Plan Plan: Acute hypoxemic and hypercapnic respiratory failure, secondary to either CHF, and/or pneumonia. She is on a BIPAP of 12/5 and fio2 of 40 %. Blood gases showing a component of hypercapnic respiratory failure, acute and the patient be kept on BiPAP over the past 24 hours, with limited response and the patient is being considered for comfort care measures/end-of-life care measures. The rest or status quite compromised. The patient is unable to generate adequate tidal volumes to sustain breathing. She is quite encephalopathic. Acute hypoxic/hypercapnic respiratory failure, still on a BiPAP History of hypertension. History of hyperlipidemia. History of COPD/asthma. History of uterine cancer. History of skin cancer. History of diabetes mellitus. History of CVA. History of gastroesophageal reflux disease. History of seizure disorder. History of pneumonia. History of multiple other medical problems and comorbidities. Plan: DNR/DNI CODE STATUS Family has opted for end-of-life care We'll sign off the case and will allow hospice to manage the patient.
--- NOTE | 2022-10-19 10:52 | P.DS ---
Providers Date of admission: 10/12/22 21:35 Expected date of discharge: 10/15/22 Attending physician: Sakshi Pride Consults: 10/12/22 21:13 Consult Physician Routine Consulting Provider: Divine Camejo Consult Reason/Comments: copd Do you want consulting provider notified?: Yes Consult Physician Routine Consulting Provider: Fritz Matos Consult Reason/Comments: chf Do you want consulting provider notified?: Yes 10/13/22 10:07 Consult Physician Routine Consulting Provider: Primo Kelley Consult Reason/Comments: UTI, pneumonia Do you want consulting provider notified?: Yes Primary care physician: Perry Knapp Hospital Course: Discharge diagnoses; Acute hypoxic respiratory failure Bacterial pneumonia caused by unspecified organism UTI Acute CHF of unknown etiology. History of hypertension. History of hyperlipidemia. History of COPD/asthma. History of uterine cancer. History of skin cancer. History of diabetes mellitus. History of CVA. History of gastroesophageal reflux disease. History of seizure disorder. Hospital course; patient is a 87-year-old lady with past medical history significant for hypertension, hyperlipidemia, pacemaker placement, COPD who presented to the hospital because of not feeling well for the past few days. Family was at the bedside, history was provided by the family. Patient has been complaining of increasing shortness of breath for the last few days . Denies any chest pain. Denies any orthopnea or PND Patient also been complaining of dizziness. Complaining of feeling hot and cold all the time. Patient also complaining of increased frequency of urination and burning while urination Initial lab work done in the ER showed white count 4.3, hemoglobin 13.6, platelet count 135, sodium 135, potassium 3.7, BUN 17, creatinine 0.7, Initial chest x-ray showed cardiomegaly and mild pulmonary vascular congestion CT head without contrast showed no acute intracranial process She was admitted to medicine service for further evaluation and treatment 10/14. Patient seen and examined. Patient currently on BiPAP, blood sugars have been low. 10/15. Patient seen and examined. Patient currently in respiratory distress on BiPAP, continues to be not doing well. Hospice has discussed with patient's family, they want patient to be transitioned to comfort care. We will be discharged to [facility] PHYSICAL EXAMINATION: GENERAL: The patient is lethargic, respiratory distress HEENT: Pupils are round and equally reacting to light. EOMI. No scleral icterus. No conjunctival pallor. Normocephalic, atraumatic. No pharyngeal erythema. No thyromegaly. CARDIOVASCULAR: S1 and S2 present. No murmurs, rubs, or gallops. PULMONARY: Tachypneic, coarse breath some bilaterally ABDOMEN: Soft, nontender, nondistended, normoactive bowel sounds. No palpable organomegaly. MUSCULOSKELETAL: No joint swelling or deformity. EXTREMITIES: No cyanosis, clubbing, or pedal edema. NEUROLOGICAL: Gross neurological examination did not reveal any focal deficits. SKIN: No rashes. Patient Condition at Discharge: Serious Plan - Discharge Summary Discharge Rx Participant: No New Discharge Prescriptions: No Action Albuterol Sulfate [Proair Hfa] 2 puff INHALATION RT-Q4H PRN PRN Reason: Shortness Of Breath amLODIPine [Norvasc] 5 mg PO DAILY Ipratropium Nebulized [Atrovent Nebulized 0.2 MG/ML] 0.5 mg INHALATION RT-TID Atorvastatin [Lipitor] 10 mg PO HS Montelukast [Singulair] 10 mg PO HS Pregabalin [Lyrica] 75 mg PO HS Pregabalin [Lyrica] 50 mg PO DAILY [id number] Acid [-U Capsule (formulary)] 1 cap PO DAILY Eszopiclone [Lunesta] 2 mg PO HS Furosemide [Lasix] 20 mg PO DAILY Tiotropium 18 Mcg/Puff [Spiriva] 1 cap INHALATION RT-DAILY Discharge Medication List Albuterol Sulfate [Proair Hfa] 2 puff INHALATION RT-Q4H PRN 12/26/14 [History] Atorvastatin [Lipitor] 10 mg PO HS 12/26/14 [History] Ipratropium Nebulized [Atrovent Nebulized 0.2 MG/ML] 0.5 mg INHALATION RT-TID 12/26/14 [History] amLODIPine [Norvasc] 5 mg PO DAILY 12/26/14 [History] Montelukast [Singulair] 10 mg PO HS 02/13/15 [History] Pregabalin [Lyrica] 50 mg PO DAILY 02/11/20 [History] Pregabalin [Lyrica] 75 mg PO HS 02/11/20 [History] Aro-Igox-Vrtst Acid [-U Capsule (formulary)] 1 cap PO DAILY 02/11/20 [History] Eszopiclone [Lunesta] 2 mg PO HS 10/12/22 [History] Furosemide [Lasix] 20 mg PO DAILY 10/12/22 [History] Tiotropium 18 Mcg/Puff [Spiriva] 1 cap INHALATION RT-DAILY 10/12/22 [History] Follow up Appointment(s)/Referral(s): Perry Knapp MD [Primary Care Provider] - 1-2 days Patient Instructions/Handouts: Urinary Tract Infection in Women (ED), Fever in Adults (ED)
== END 2022-10-15 10:31 | disposition hospice, inpatient (51) | DRG 291 ==
LOC: EC 15:21 → 3SCARD 21:35
PROVIDERS: ADMIT Hospitalist; ATTEND Hospitalist
PROC: 5A09357 Assistance with Respiratory Ventilation, Less than 24 Consecutive Hours, Continuous Positive Airway Pressure (ICD-10-PCS; principal; 2022-10-12)
DX: I11.0 Hypertensive heart disease with heart failure (principal); J15.9 Unspecified bacterial pneumonia; J96.01 Acute respiratory failure with hypoxia; J96.02 Acute respiratory failure with hypercapnia; J44.0 Chronic obstructive pulmonary disease with (acute) lower respiratory infection; N39.0 Urinary tract infection, site not specified; Z68.1 Body mass index [BMI] 19.9 or less, adult; I50.9 Heart failure, unspecified; Z87.891 Personal history of nicotine dependence; M31.6 Other giant cell arteritis; G40.909 Epilepsy, unspecified, not intractable, without status epilepticus; E86.0 Dehydration; E78.5 Hyperlipidemia, unspecified; R13.10 Dysphagia, unspecified; E09.9 Drug or chemical induced diabetes mellitus without complications; Z20.822 Contact with and (suspected) exposure to COVID-19; Z51.5 Encounter for palliative care; Z66 Do not resuscitate; Z77.011 Contact with and (suspected) exposure to lead; Z77.120 Contact with and (suspected) exposure to mold (toxic); R63.4 Abnormal weight loss; Z74.01 Bed confinement status; Z87.442 Personal history of urinary calculi; Z79.899 Other long term (current) drug therapy; Z85.42 Personal history of malignant neoplasm of other parts of uterus; Z85.828 Personal history of other malignant neoplasm of skin; Z86.73 Personal history of transient ischemic attack (TIA), and cerebral infarction without residual deficits; Z87.01 Personal history of pneumonia (recurrent); Z90.710 Acquired absence of both cervix and uterus; Z95.0 Presence of cardiac pacemaker
CPT/HCPCS: 36415; 36600; 70450; 71045; 71046; 80053; 81001; 82805; 83605; 83735; 83880; 84100; 84145; 84484; 85025; 85610; 85730; 86140; 87040; 87636; 93005; 93306; 94640; 94660; 94760; 96361; 96365; 96368; 99291

== ENCOUNTER 2022-10-15 09:26 | Inpatient (IN) | payer MEDICAID ==
[2022-10-15] MEDS ORDERED: LORazepam 2 MG/ML INJ IV PRN (10:08)
[2022-10-15] MEDS ORDERED: MORPHINE SULFATE 2 MG/ML SYRINGE IV PRN (10:08)
[2022-10-15] MEDS ORDERED: ATROPINE OPHTH SOLN 1% 5ML BTL SUBLINGUAL PRN (10:08)
[2022-10-15] MEDS ORDERED: GLYCOPYRROLATE 0.2 MG/ML 2 ML VIAL IVP PRN (10:08)
[2022-10-15] MEDS ORDERED: MORPHINE SULFATE (100 MG/2 ML) 100 MG in SODIUM CHLORIDE 0.9% 100 ML IV SCH (10:15)
[2022-10-15] MEDS ORDERED: SCOPOLAMINE 1 MG/72 HR PATCH TRANSDERM SCH (10:15)
[2022-10-15] MEDS ORDERED: ACETAMINOPHEN SUPPOSITORY 650 MG SUPP RECTAL PRN (14:20)
[2022-10-16 05:32] VITALS: BP 109/66; PULSE 92
[2022-10-16 09:26] VITALS: RESP 7
--- NOTE | 2022-10-16 12:41 | P.HPIM ---
History of Present Illness H&P Date: 10/16/22 History of present illness; patient is a 87-year-old lady with past medical history significant for h ypertension, hyperlipidemia, pacemaker placement, COPD who presented to the hospital because of not feeling well for the past few days. Family was at the bedside, history was provided by the family. Patient has been complaining of increasing shortness of breath for the last few days . Denies any chest pain. Denies any orthopnea or PND Patient also been complaining of dizziness. Complaining of feeling hot and cold all the time. Patient also complaining of increased frequency of urination and burning while urination. Initial lab work done in the ER showed white count 4.3, hemoglobin 13.6, platelet count 135, sodium 135, potassium 3.7, BUN 17, creatinine 0.7, Initial chest x-ray showed cardiomegaly and mild pulmonary vascular congestion CT head without contrast showed no acute intracranial process Patient was admitted to medicine service. Cardiology and pulmonology were consulted. Patient respiratory status continued to worsen, was requiring BiPAP. Discussed with family in detail, they wanted patient to be transitioned to hospice, patient was admitted to [facility] REVIEW OF SYSTEMS: Review of systems cannot be obtained because the patient current medical con dition PHYSICAL EXAMINATION: GENERAL: The patient is lethargic, respiratory distress HEENT: Pupils are round and equally reacting to light. EOMI. No scleral icterus. No conjunctival pallor. Normocephalic, atraumatic. No pharyngeal erythema. No thyromegaly. CARDIOVASCULAR: S1 and S2 present. No murmurs, rubs, or gallops. PULMONARY: Tachypneic, coarse breath some bilaterally ABDOMEN: Soft, nontender, nondistended, normoactive bowel sounds. No palpable organomegaly. MUSCULOSKELETAL: No joint swelling or deformity. EXTREMITIES: No cyanosis, clubbing, or pedal edema. NEUROLOGICAL: Gross neurological examination did not reveal any focal deficits. SKIN: No rashes. Assessment and plan Acute hypoxic respiratory failure Bacterial pneumonia caused by unspecified organism UTI Acute CHF of unknown etiology. History of hypertension. History of hyperlipidemia. History of COPD/asthma. History of uterine cancer. History of skin cancer. History of diabetes mellitus. History of CVA. History of gastroesophageal reflux disease. History of seizure disorder. Plan; Continue comfort care measures Past Medical History Past Medical History: Asthma, Cancer, Chest Pain / Angina, COPD, CVA/TIA, Diabetes Mellitus, GERD/Reflux, Hyperlipidemia, Hypertension, Osteoarthritis (OA), Pneumonia, Seizure Disorder Additional Past Medical History / Comment(s): TREMORS, HX OF PNEUMONIA SEVERAL TIMES, HX OF UTERINE AND SKIN CANCER, ANEMIA, "NON-FUNCTIONING GALL BLADDER", HX OF KIDNEY STONES,. occ loss of CONTROL OF HER BOWELS., "TEMPORAL ARTERITIS" excema, INSOMNIA,HIATAL HERNIA, last seizure about 10 yrs ago, told TIA 10-12 yrs ago, diff swallowing and wt loss of about 2 lbs a week, diverticulitis, hx prednisone induced diabetes, cervical dystonia, Neck/back fx History of Any Multi-Drug Resistant Organisms: None Reported Past Surgical History: Heart Catheterization, Hysterectomy, Pacemaker Additional Past Surgical History / Comment(s): VARICOSE VEINS REMOVED, HEART CATH X2. CATARACTS, SKIN CA REMOVED, pain clinic procedure Past Anesthesia/Blood Transfusion Reactions: Previous Problems w/ Anesthesia, Motion Sickness Additional Past Anesthesia/Blood Transfusion Reaction / Comment(s): SEVERE REACTION TO FENTANYL AND DEMEROL. Type of Cardiac Device: Permanent Pacemaker Device Placement Date:: june 2022 Past Psychological History: No Psychological Hx Reported Smoking Status: Never smoker Past Alcohol Use History: None Reported Additional Past Alcohol Use History / Comment(s): STARTED SMOKING AT AGE 10 - QUIT AT AGE 56, SMOKED 1 PPD. 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 Past Drug Use History: None Reported - Past Family History Father Additional Family Medical History / Comment(s): AT AGE 29-NOT SURE OF CAUSE Mother Family Medical History: Cancer Additional Family Medical History / Comment(s): . Brother(s) Family Medical History: Cancer Additional Family Medical History / Comment(s): . Daughter(s) Family Medical History: Cancer Additional Family Medical History / Comment(s): COLON CANCER Medications and Allergies Home Medications Medication Instructions Recorded Confirmed Type Albuterol Sulfate [Proair Hfa] 2 puff INHALATION RT-Q4H PRN 12/26/14 10/15/22 History Atorvastatin [Lipitor] 10 mg PO HS 12/26/14 10/15/22 History Ipratropium Nebulized [Atrovent 0.5 mg INHALATION RT-TID 12/26/14 10/15/22 History Nebulized 0.2 MG/ML] amLODIPine [Norvasc] 5 mg PO DAILY 12/26/14 10/15/22 History Montelukast [Singulair] 10 mg PO HS 02/13/15 10/15/22 History Pregabalin [Lyrica] 50 mg PO DAILY 02/11/20 10/15/22 History Pregabalin [Lyrica] 75 mg PO HS 02/11/20 10/15/22 History Nff-Efvy-Liohf Acid 1 cap PO DAILY 02/11/20 10/15/22 History [-U Capsule (formulary)] Eszopiclone [Lunesta] 2 mg PO HS 10/12/22 10/15/22 History Furosemide [Lasix] 20 mg PO DAILY 10/12/22 10/15/22 History Tiotropium 18 Mcg/Puff [Spiriva] 1 cap INHALATION RT-DAILY 10/12/22 10/15/22 History Allergies Allergy/AdvReac Type Severity Reaction Status Date / Time codeine Allergy Dyspnea/hiv Verified 10/15/22 10:55 es fentanyl Allergy Anaphylaxis Verified 10/15/22 10:55 Iodinated Contrast Media Allergy Anaphylaxis Verified 10/15/22 10:55 [Iodinated Contrast Media - IV Dye] meperidine HCl [From Demerol] Allergy Anaphylaxis Verified 10/15/22 10:55 omeprazole Allergy Swelling/Ra Verified 10/15/22 10:55 sh adhesive tape AdvReac THIN AND Verified 10/15/22 10:55 SENSITIVE SKIN/RASH Physical Exam Vitals: Vital Signs Pulse Resp BP Pulse Ox 10/16/22 09:25 7 L 10/16/22 04:00 92 3 L 109/66 92 L 10/15/22 22:59 89 3 L 100 10/15/22 20:00 94 4 L 97 10/15/22 18:57 4 L 10/15/22 16:00 2 L 10/15/22 14:33 6 L 10/15/22 12:59 10 L Intake and Output 10/15/22 10/16/22 10/16/22 22:59 06:59 14:59 Output Total 400 0 Balance -400 0 Output: Urine 400 0 Other: Voiding Method Indwelling Catheter Indwelling Catheter Indwelling Catheter
--- NOTE | 2022-10-16 12:45 | P.DS ---
Providers Date of admission: 10/15/22 10:36 Expected date of discharge: 10/16/22 Attending physician: Parrish Aguirre MD Primary care physician: Perry Knapp Hospital Course: Discharge diagnoses; Acute hypoxic respiratory failure Bacterial pneumonia caused by unspecified organism UTI Acute CHF of unknown etiology. History of hypertension. History of hyperlipidemia. History of COPD/asthma. History of uterine cancer. History of skin cancer. History of diabetes mellitus. History of CVA. History of gastroesophageal reflux disease. History of seizure disorder. Hospital course; patient is a 87-year-old lady with past medical history significant for hypertension, hyperlipidemia, pacemaker placement, COPD who presented to the hospital because of not feeling well for the past few days. Family was at the bedside, history was provided by the family. Patient has been complaining of increasing shortness of breath for the last few days . Denies any chest pain. Denies any orthopnea or PND Patient also been complaining of dizziness. Com plaining of feeling hot and cold all the time. Patient also complaining of increased frequency of urination and burning while urination. Initial lab work done in the ER showed white count 4.3, hemoglobin 13.6, platelet count 135, sodium 135, potassium 3.7, BUN 17, creatinine 0.7, Initial chest x-ray showed cardiomegaly and mild pulmonary vascular congestion CT head without contrast showed no acute intracranial process Patient was admitted to medicine service. Cardiology and pulmonology were consulted. Patient respiratory status continued to worsen, was requiring BiPAP. Discussed with family in detail, they wanted patient to be transitioned to hospice, patient was admitted to [facility] Patient was under hospice care, was pronounced on 1108 Patient Condition at Discharge: Critical Plan - Discharge Summary New Discharge Prescriptions: No Action Albuterol Sulfate [Proair Hfa] 2 puff INHALATION RT-Q4H PRN PRN Reason: Shortness Of Breath amLODIPine [Norvasc] 5 mg PO DAILY Ipratropium Nebulized [Atrovent Nebulized 0.2 MG/ML] 0.5 mg INHALATION RT-TID Atorvastatin [Lipitor] 10 mg PO HS Montelukast [Singulair] 10 mg PO HS Pregabalin [Lyrica] 75 mg PO HS Pregabalin [Lyrica] 50 mg PO DAILY Ufo-Plzh-Kgvja Acid [-U Capsule (formulary)] 1 cap PO DAILY Eszopiclone [Lunesta] 2 mg PO HS Furosemide [Lasix] 20 mg PO DAILY Tiotropium 18 Mcg/Puff [Spiriva] 1 cap INHALATION RT-DAILY Discharge Medication List Albuterol Sulfate [Proair Hfa] 2 puff INHALATION RT-Q4H PRN 12/26/14 [History] Atorvastatin [Lipitor] 10 mg PO HS 12/26/14 [History] Ipratropium Nebulized [Atrovent Nebulized 0.2 MG/ML] 0.5 mg INHALATION RT-TID 12/26/14 [History] amLODIPine [Norvasc] 5 mg PO DAILY 12/26/14 [History] Montelukast [Singulair] 10 mg PO HS 02/13/15 [History] Pregabalin [Lyrica] 50 mg PO DAILY 02/11/20 [History] Pregabalin [Lyrica] 75 mg PO HS 02/11/20 [History] Sml-Dqai-Jpoxr Acid [-U Capsule (formulary)] 1 cap PO DAILY 02/11/20 [History] Eszopiclone [Lunesta] 2 mg PO HS 10/12/22 [History] Furosemide [Lasix] 20 mg PO DAILY 10/12/22 [History] Tiotropium 18 Mcg/Puff [Spiriva] 1 cap INHALATION RT-DAILY 10/12/22 [History] Discharge Disposition: - Preliminary Cause of Preliminary Cause of : Pneumonia, acute respiratory failure
== END 2022-10-16 12:06 | disposition expired | DRG 951 ==
LOC: 3SCARD 10:36
PROVIDERS: ADMIT Internal Medicine; ATTEND Internal Medicine
PROC: 5A09357 Assistance with Respiratory Ventilation, Less than 24 Consecutive Hours, Continuous Positive Airway Pressure (ICD-10-PCS; principal; 2022-10-15)
DX: Z51.5 Encounter for palliative care (principal); J15.9 Unspecified bacterial pneumonia; J96.01 Acute respiratory failure with hypoxia; J44.0 Chronic obstructive pulmonary disease with (acute) lower respiratory infection; N39.0 Urinary tract infection, site not specified; I50.22 Chronic systolic (congestive) heart failure; I11.0 Hypertensive heart disease with heart failure; Z88.5 Allergy status to narcotic agent; D64.9 Anemia, unspecified; Z91.048 Other nonmedicinal substance allergy status; E78.5 Hyperlipidemia, unspecified; E09.9 Drug or chemical induced diabetes mellitus without complications; K21.9 Gastro-esophageal reflux disease without esophagitis; G40.909 Epilepsy, unspecified, not intractable, without status epilepticus; G47.00 Insomnia, unspecified; M19.90 Unspecified osteoarthritis, unspecified site; R35.0 Frequency of micturition; Z77.011 Contact with and (suspected) exposure to lead; Z79.899 Other long term (current) drug therapy; Z85.828 Personal history of other malignant neoplasm of skin; Z86.73 Personal history of transient ischemic attack (TIA), and cerebral infarction without residual deficits; Z87.01 Personal history of pneumonia (recurrent); Z87.442 Personal history of urinary calculi; Z87.891 Personal history of nicotine dependence; Z90.710 Acquired absence of both cervix and uterus; Z95.0 Presence of cardiac pacemaker; Z85.42 Personal history of malignant neoplasm of other parts of uterus; Z66 Do not resuscitate; Z98.42 Cataract extraction status, left eye; Z98.41 Cataract extraction status, right eye; Z87.19 Personal history of other diseases of the digestive system; Z88.8 Allergy status to other drugs, medicaments and biological substances